=== PATIENT | male | born 1980 | race Caucasian/White ===

== ENCOUNTER 2016-08-16 20:52 | Emergency (ER) | payer OTHER ==
[~2016-08-16] VITALS: Ht 172.7 cm; Wt 125.8 kg
[~2016-08-16 20:52] MED LIST: ALBUAER19 INH; CARI350T28 PO; DICL1TAB5 PO; FLUO40CA8 PO; FLUT0.15 NAE; GABA400C PO; HYDR12.56 PO; LISI-725 PO; NORT75CA PO; OMEP40CA PO
[2016-08-16 21:03] VITALS: TEMP 36.9; Ht 172.7 cm; Wt 125.8 kg
[2016-08-16] MEDS ORDERED: OMEP40CA41 PO (21:49)
[2016-08-16] MEDS ORDERED: CEPH500C PO (21:53)
[2016-08-16] MEDS ORDERED: CEPHALEXIN 500MG HOME PACK 1 EA BTL PO ONE (22:00)
[2016-08-16] MEDS ORDERED: NORCO 5/325MG HOME PACK PO ONE (22:00)
[2016-08-16 22:05] VITALS: BP 134/97; PULSE 100; O2SAT 98
--- NOTE | 2016-08-17 04:32 | EMERGENCY ROOM VISIT NOTE ---
History First contact with patient: 21:36 Chief Complaint: BURN (MINOR) Stated Complaint: STEAM BURN ON RIGHT HAND History of Present Illness The patient is a 35 year old male who presents to the Emergency Room with complaints of burn to his right second, third, and fourth fingers. The patient was cooking dinner in the abdomen, and took the lid off a pot. He states that he suffered a steam burn to the back of his digits. He has had worsening pain over the past one to 2 hours and rates his current discomfort a 7/10. The patient believes he is up-to-date on his tetanus. He has not had blistering or significant redness. He has not taken anything [id number] for his pain. Review of Systems More than 10 systems were reviewed and otherwise negative with the exception of history of present illness. Past Medical/Surgical History Medical Problems: (1) Anxiety disorder (2) Back pain (3) Back pain (4) Depression (5) Depressive disorder (6) Esophageal Reflux (7) GERD (gastroesophageal reflux disease) (8) Hand crush injury (9) HTN (hypertension) (10) Left hand pain (11) Left shoulder pain (12) Shoulder pain Surgical Problems: (1) History of carpal tunnel release (2) History of herniorrhaphy (3) History of umbilical hernia repair (4) S/P carpal tunnel release Family History Diabetes mellitus MOTHER Gallbladder disease MOTHER Hypertension MOTHER Lung disease MOTHER Social History Smoking Status: Current Some Day Smoker Alcohol Use: occasionally Marital Status: Housing Status: lives with significant other Occupation Status: employed Current/Historical Medications Scheduled Carisoprodol (Soma), 350 MG PO QID Cephalexin Monohydrate (Keflex), 500 MG PO TID Fluoxetine (Prozac), 40 MG PO DAILY Gabapentin (Neurontin), 400 MG PO QID Hydrochlorothiazide (Hctz), 12.5 MG PO DAILY Lisinopril (Zestril), 20 MG PO DAILY Nortriptyline Hcl (Pamelor), 75 MG PO HS Omeprazole (Prilosec), 40 MG PO DAILY Scheduled PRN Albuterol Inhaler (Ventolin Inhaler), 2 PUFFS INH UD PRN for Respiratory-Cold Fluticasone Propionate (Nasal) (Flonase Allergy Relief), 1 SPRAY ANNY BID PRN for Allergy Symptoms Allergies Coded Allergies: No Known Allergies (Unverified , 12/07/15) Physical Exam Vital Signs Date Time Temp Pulse Resp B/P (MAP) Pulse Ox O2 Delivery O2 Flow Rate FiO2 08/16/16 22:05 100 18 134/97 98 Room Air 08/16/16 21:06 96 08/16/16 21:03 36.9 110 20 136/80 96 Pain Rating (0-10): 6.0 Physical Exam VITALS: Vitals are noted on the nurse's note and reviewed by myself. Vital signs stable. GENERAL: Well-developed, well-nourished, white male, who is in no acute distress and resting comfortably. Patient is cooperative with the examination. HEAD: Normocephalic atraumatic. HEART: Regular rate and rhythm without murmurs gallops or rubs. LUNGS: Clear to auscultation bilaterally without wheezes, rales or rhonchi. No retractions or accessory muscle use. SKIN: The skin was with superficial first-degree ball to the posterior aspect of the distal second, third, and fourth digits of the right hand. There is no blistering appreciated. No evidence of infection. The patient has full sensation and range of motion of the hand and digits. Medical Decision & Procedures Medications Administered Medications (Trade) Dose Ordered Sig/Diego Route Start Time Stop Time Status Last Admin Dose Admin Cephalexin Monohydrate (Keflex 500MG Home Pack) 1 homepack NOW ONCE PO 08/16/16 22:00 08/16/16 22:01 DC 08/16/16 22:05 1 HOMEPACK Acetaminophen/ Hydrocodone Bitart ([place] 5/325mg Home Pack) 1 homepack UD ONCE PO 08/16/16 22:00 08/16/16 22:01 DC 08/16/16 22:05 1 HOMEPACK ED Course Physical exam and history were performed. Nursing notes and EMR were reviewed. Patient appears to have suffered a superficial steam burn to his right hand posteriorly. The patient wound was dressed with a bacitracin dressing. He will be started on Keflex for prophylaxis. I will provide the patient home pack of Vicodin. He is to follow-up with his PCP or back in the ER in 2 days for recheck. He was otherwise invited back to the ER with any new, worsening, or concerning symptoms. The chart was completed utilizing [employer] Speech Voice Recognition Software. Grammatical errors, random word insertions, pronoun errors, and incomplete sentences are an occasional consequence of this system due to software limitations, ambient noise, and hardware issues. Any formal questions or concerns about the content, text, or information contained within the body of this dictation should be directly addressed to the provider for clarification. . Medical Decision Differential diagnosis: Etiologies such as cellulitis, abscess, MRSA infection, DVT, necrotizing fasciitis, dermatitis, drug eruption, as well as others were entertained.. Impression Primary Impression: Burn of fingers Departure Information Dispostion Home / Self-Care Condition FAIR Prescriptions Cephalexin Monohydrate (Keflex) 500 Mg Cap 500 MG PO TID for 5 Days, #15 CAP Prov: Nico Ruth PA-C 08/16/16 Forms HOME CARE DOCUMENTATION FORM, IMPORTANT VISIT INFORMATION Patient Instructions My [facility] Additional Instructions You were seen and evaluated today on an emergency basis only. This is not a substitute for, or an effort to provide, complete comprehensive medical care. It is not possible to recognize and treat all injuries or illnesses in a single emergency department visit. For this reason it is recommended that you followup with your primary care physician this week with any ongoing or persistent symptoms Cephalexin(Keflex) 500mg: Take one pill 3 times daily for 5 days for your skin infection. All antibiotics can cause diarrhea. If this occurs and you feel worse or it does not resolve in 1-2 days follow up with your doctor or return to the Emergency Department as this could be signs of serious underlying problems. Any medication can cause an allergic reaction, stop the pills immediately and return to the ER for rash, hives, breathing difficulties, or swelling. [place] (hydrocodone/acetaminophen) 5/325 mg every 6 hours as needed for worsening breakthrough pain. Do not drink or drive on [place]. This medication will likely make you tired. Do not take [place] and Tylenol at the same time as both contain acetaminophen. [place] may cause constipation. You may wish to take an [id number] stool softener like Colace if this occurs. Apply a bacitracin dressing 2-3 times daily to the affected fingers. You are welcome to return to the emergency department anytime with new, worsening, or concerning symptoms.
== END 2016-08-16 22:13 | disposition home or self-care (01) ==
LOC: C.EDB 20:53 → C.EDD 22:13
DX: T23.131A Burn of first degree of multiple right fingers (nail), not including thumb, initial encounter (principal); T31.0 Burns involving less than 10% of body surface; X13.1XXA Other contact with steam and other hot vapors, initial encounter; Y92.010 Kitchen of single-family (private) house as the place of occurrence of the external cause; Y93.G3 Activity, cooking and baking; F41.9 Anxiety disorder, unspecified; M54.9 Dorsalgia, unspecified; F32.9 Major depressive disorder, single episode, unspecified; K21.9 Gastro-esophageal reflux disease without esophagitis; I10 Essential (primary) hypertension; Z83.3 Family history of diabetes mellitus; Z83.79 Family history of other diseases of the digestive system; Z82.49 Family history of ischemic heart disease and other diseases of the circulatory system; Z83.6 Family history of other diseases of the respiratory system; F17.210 Nicotine dependence, cigarettes, uncomplicated; Z79.899 Other long term (current) drug therapy

== ENCOUNTER → 2016-10-03 | Outpatient (CLI) | payer OTHER ==
[~2016-10-03] MED LIST changes: +AMOX875T PO; -DICL1TAB5 PO; -OMEP40CA PO; +OMEP40CA41 PO; +VNTHFA/IN INH
--- NOTE | 2016-10-03 12:22 | DIAGNOSTIC IMAGING REPORT ---
RIGHT ANKLE 3 VIEWS CLINICAL HISTORY: Right ankle sprain. FINDINGS: 3 views of the right ankle are obtained. No prior studies are available for comparison at the time of dictation. The skeletal structures are well mineralized. No fracture is seen. The ankle mortise is intact. There is a joint effusion. Mild soft tissue swelling is present around the ankle. IMPRESSION: Soft tissue swelling and joint effusion. No right ankle fracture is seen. Electronically signed by: Riley Kimble M.D. 10/03/2016 12:20 PM Dictated Date/Time: 10/03/2016 12:19 PM
== END | disposition home or self-care (01) ==
LOC: C.RAD 12:01
PROVIDERS: ATTEND Nurse Practitioner Family
DX: S93.401A Sprain of unspecified ligament of right ankle, initial encounter (principal); X58.XXXA Exposure to other specified factors, initial encounter

== ENCOUNTER 2016-11-07 19:20 | Emergency (ER) | payer OTHER ==
[~2016-11-07] VITALS: Ht 172.7 cm; Wt 123.1 kg
[~2016-11-07 19:20] MED LIST changes: -AMOX875T PO; -VNTHFA/IN INH
[2016-11-07 19:23] VITALS: BP 118/79; PULSE 96; TEMP 36.5; O2SAT 95; Ht 172.7 cm; Wt 123.1 kg
[2016-11-07] MEDS ORDERED: ACETAMINOPHEN 500 MG TAB PO STA (19:35)
[2016-11-07] MEDS ORDERED: AMOX875T PO (19:40)
[2016-11-07] MEDS ORDERED: VNTHFA/IN INH (19:44)
[2016-11-07] MEDS ORDERED: AMOXICIL/CLAVU 875MG HOME PACK PO ONE (19:45)
[2016-11-07] MEDS ORDERED: AMOXICILLIN/CLAVULANATE TAB 875 MG TAB PO ONE (19:45)
--- NOTE | 2016-11-07 19:56 | EMERGENCY ROOM VISIT NOTE ---
History Report prepared by Jamil: Cheri Hahn Under the Supervision of: Dr. Omar Veloz D.O. First contact with patient: 19:29 Chief Complaint: SINUS CONGESTION/PRESSURE Stated Complaint: SINUS PRESSURE, SORE THROAT, NECK/BACK PAIN, HEADA History of Present Illness The patient is a 36 year old male who presents to the Emergency Room with complaints of worsening sinus congestion starting a week ago. The patient complains of waking up this morning and it being the worst it has been. The patient complains of a headache, sore throat, increased neck pain, increased back pain, ringing in his ears, drainage, and nausea. He notes that he has had sinus infections before and once had it spread to his eye. He states he has been using Flonase with little relief. The patient denies fevers, chills, and being seen for this before. He notes that his grand kids have been sick recently. Source of History: patient Onset: a week ago Position: other (sinus) Quality: other (congestion) Timing: worsening Modifying Factors (Relieving): other (Flonase) Associated Symptoms: + headache, + sorethroat, + neck pain, + nausea, + back pain, No fevers, No chills Note: The patient complains of ringing in his ears and drainage. Review of Systems See HPI for pertinent positives & negatives. A total of 10 systems reviewed and were otherwise negative. Past Medical & Surgical Medical Problems: (1) Anxiety disorder (2) Back pain (3) Back pain (4) Depression (5) Depressive disorder (6) Esophageal Reflux (7) GERD (gastroesophageal reflux disease) (8) Hand crush injury (9) Herniated disc (10) HTN (hypertension) (11) Left hand pain (12) Left shoulder pain (13) Shoulder pain Surgical Problems: (1) H/O umbilical hernia repair (2) History of carpal tunnel release (3) History of carpal tunnel surgery of left wrist (4) History of herniorrhaphy (5) History of umbilical hernia repair (6) S/P carpal tunnel release Family History Diabetes mellitus MOTHER Gallbladder disease MOTHER Hypertension MOTHER Lung disease MOTHER Social History Smoking Status: Current Some Day Smoker Alcohol Use: occasionally Marital Status: Housing Status: lives with significant other Occupation Status: employed Current/Historical Medications Scheduled Amoxicillin & Pot Clavulanate (Augmentin 875-125 mg), 1 TAB PO BID Carisoprodol (Soma), 350 MG PO QID Fluoxetine (Prozac), 40 MG PO DAILY Gabapentin (Neurontin), 400 MG PO QID Hydrochlorothiazide (Hctz), 12.5 MG PO DAILY Lisinopril (Zestril), 20 MG PO DAILY Nortriptyline Hcl (Pamelor), 75 MG PO HS Omeprazole (Prilosec), 40 MG PO DAILY Scheduled PRN Albuterol Hfa (Ventolin Hfa), 2 PUFFS INH UD PRN for SOB/Wheezing Fluticasone Propionate (Nasal) (Flonase Allergy Relief), 1 SPRAY ANNY BID PRN for Allergy Symptoms Allergies Coded Allergies: No Known Allergies (Unverified , 12/07/15) Physical Exam Vital Signs Date Time Temp Pulse Resp B/P (MAP) Pulse Ox O2 Delivery O2 Flow Rate FiO2 11/07/16 19:23 36.5 96 20 118/79 95 Room Air Physical Exam GENERAL: Patient is awake, alert, and in no acute distress. Patient is resting comfortably and showing no signs of anxiety EYES: The conjunctivae are clear. The pupils are round and reactive. EARS, NOSE, MOUTH AND THROAT: The nose is without any evidence of any deformity. Mucous membranes are moist tongue is midline. TMs are clear bilaterally. Nares were patent. Nasal mucosa erythematous and edematous. Posterior oropharynx clear, but some cobble stoning noted. NECK: The neck is nontender and supple. RESPIRATORY: Normal respiratory effort is noted there is no evidence of wheezing rhonchi or rales CARDIOVASCULAR: Regular rate and rhythm noted there no murmurs rubs or gallops normal S1 normal S2 GASTROINTESTINAL: The abdomen is soft. Bowel sounds are present in all quadrants. Abdomen is nontender MUSCULOSKELETAL/EXTREMITIES: There is no evidence of gross deformity full range of motion is noted in the hips and shoulders SKIN: There is no obvious evidence of any rash. There are no petechiae, pallor or cyanosis noted. NEUROLOGIC: Patient is awake alert and oriented x3 strength is symmetric patellar reflexes are 2+ bilaterally Medical Decision & Procedures Medications Administered Medications (Trade) Dose Ordered Sig/Diego Route Start Time Stop Time Status Last Admin Dose Admin Amoxicillin/ Clavulanate Potassium (Augmentin 875MG Home Pack) 1 homepack UD ONCE PO 11/07/16 19:45 11/07/16 19:46 DC 11/07/16 19:49 1 HOMEPACK Amoxicillin/ Clavulanate Potassium (Augmentin Tab) 875 mg NOW ONCE PO 11/07/16 19:45 11/07/16 19:46 DC 11/07/16 19:49 875 MG Acetaminophen (Tylenol Tab) 1,000 mg ONE STAT PO 11/07/16 19:35 11/07/16 19:37 DC 11/07/16 19:49 1,000 MG ED Course 1931: The patient was evaluated in room A3. A complete history and physical examination were performed. 1934: Ordered Tylenol Tab 1000 mg PO. 1944: Ordered Augmentin Tab 875 mg PO, Augmentin 875MG Home Pack 1 homepack PO. 1953: Upon reevaluation, the patient is resting comfortably. I discussed the results and treatment plan with him. He verbalized agreement of the treatment plan. The patient was discharged home. Medical Decision Etiologies such as migraine headache, meningitis, sinusitis, CO exposure, ICH, SAH, infection, tumor, headache, sinus thrombosis, arterial dissection, as well as others were entertained. Nursing notes reviewed. The patient is a 36-year-old female who presented to the emergency department for evaluation of frontal pain. The patient appears to have sinusitis by physical exam. He does not have a significant fever. I discussed follow-up with the patient and encouraged him to continue all medications as prescribed. He was also encouraged to follow-up with his family doctor for reevaluation and for possible ENT evaluation if he was not feeling much better. He was also encouraged to try using Flonase but be cautious with needing other over-the- counter medications as it could affect his blood pressure. He was also encouraged return to the emergency department immediately if symptoms change worsen or the need arises Impression Primary Impression: Sinusitis Scribe Attestation The scribe's documentation has been prepared under my direction and personally reviewed by me in its entirety. I confirm that the note above accurately reflects all work, treatment, procedures, and medical decision making performed by me. Departure Information Dispostion Home / Self-Care Prescriptions Amoxicillin & Pot Clavulanate (Augmentin 875-125 mg) 1 Tab Tab 1 TAB PO BID, #14 TAB Prov: Omar Veloz, DO 11/07/16 Referrals Omar Doty M.D. (PCP) Forms HOME CARE DOCUMENTATION FORM, IMPORTANT VISIT INFORMATION, WORK / SCHOOL INSTRUCTIONS Patient Instructions My [facility] Additional Instructions Call your family doctor in the morning to schedule a follow-up appointment. Rest and avoid any strenuous activity. Drink plenty clear liquids. Continue using Motrin and Tylenol as directed for pain. I would recommend starting a medication such as Flonase for decongestion. Problem Qualifiers Primary Impression: Sinusitis Sinusitis location: unspecified location Chronicity: acute Recurrence: not specified as recurrent Qualified Codes: J01.90 - Acute sinusitis, unspecified
== END 2016-11-07 19:49 | disposition home or self-care (01) ==
LOC: C.EDB 19:21 → C.EDA 19:49
DX: J01.90 Acute sinusitis, unspecified (principal); F41.9 Anxiety disorder, unspecified; F32.9 Major depressive disorder, single episode, unspecified; K21.9 Gastro-esophageal reflux disease without esophagitis; I10 Essential (primary) hypertension; Z83.3 Family history of diabetes mellitus; Z83.79 Family history of other diseases of the digestive system; Z83.6 Family history of other diseases of the respiratory system; F17.210 Nicotine dependence, cigarettes, uncomplicated; Z79.899 Other long term (current) drug therapy

== ENCOUNTER 2016-12-02 10:44 | Emergency (ER) | payer OTHER ==
[~2016-12-02] VITALS: Ht 172.7 cm; Wt 123.3 kg
[2016-12-02 10:47] VITALS: TEMP 36.7; Ht 172.7 cm; Wt 123.3 kg
[2016-12-02] MEDS ORDERED: KETOROLAC TROMETHAMINE 30 MG/ML VIAL IV STA (11:02)
[2016-12-02] MEDS ORDERED: SODIUM CHLORIDE 0.9% 1000ML 1,000 ML IV STA (11:02)
[2016-12-02] MEDS ORDERED: ONDANSETRON INJ 2 MG/ML 2 ML VIAL IV STA ×2 (11:02→13:49)
[2016-12-02] MEDS ORDERED: MoRPHine SULFATE 10 MG/ML CARP/VIAL IV STA (11:02)
--- NOTE | 2016-12-02 11:21 | DIAGNOSTIC IMAGING REPORT ---
CHEST ONE VIEW PORTABLE CLINICAL HISTORY: Pain, radiating to the right upper quadrant COMPARISON STUDY: No previous studies for comparison. FINDINGS: The cardiac and mediastinal contours are normal. There is no evidence of focal pulmonary consolidation. There is no evidence of failure. No pleural effusions are visualized.[No free intraperitoneal air is visualized IMPRESSION: No active disease in the chest. Electronically signed by: Jaylen Morales M.D. 12/02/2016 11:19 AM Dictated Date/Time: 12/02/2016 11:19 AM
[2016-12-02 11:23] LABS: BASO % 0.7 %; BASO ABS # 0.03 K/uL (0-0.2); COMPLETE YES; IG% 0.2 %; LYMPH % 38.5 %; MEAN CELL VOLUME 86.6 fL (80-100); MEAN CORPUSCULAR HEMOGLOBIN 31.4 pg (25-34); MEAN CORPUSCULAR HGB CONC 36.3 g/dl (32-36); MEAN PLATELET VOLUME 8.7 fL (7.4-10.4); NEUT % 44.6 %; PLATELET COUNT 234 K/uL (130-400); RED BLOOD COUNT 4.62 M/uL (4.7-6.1); WHITE BLOOD COUNT 4.42 K/uL (4.8-10.8)
[2016-12-02 12:24] LABS: ALT/SGPT 55 U/L (12-78)
[2016-12-02 12:28] LABS: ALKALINE PHOSPHATASE 70 U/L (45-117); AST/SGOT 39 U/L (15-37); BLOOD UREA NITROGEN 14 mg/dl (7-18); BUN/CREATININE RATIO 15.4 (10-20); CALCIUM 8.4 mg/dl (8.5-10.1); CARBON DIOXIDE 26 mmol/L (21-32); CHLORIDE 102 mmol/L (98-107); CREATININE 0.88 mg/dl (0.60-1.40); POTASSIUM 3.2 mmol/L (3.5-5.1); SODIUM 136 mmol/L (136-145)
[2016-12-02 12:58] LABS: GLUCOSE 99 mg/dl (70-99)
--- NOTE | 2016-12-02 13:18 | DIAGNOSTIC IMAGING REPORT ---
GALLBLADDER-ABD LIMITED HISTORY: 36 years-old Male ruq abd pain acute right upper quadrant abdominal pain COMPARISON: Right upper quadrant ultrasound 07/07/2011 TECHNIQUE: Multiple real-time sonographic images of the abdominal right upper quadrant were obtained assessing grayscale appearance and color flow FINDINGS: Pancreas is partially secured by bowel gas. There is apparent mild prominence with decreased echogenicity of the pancreatic head. Liver measures up to 19.1 cm in length and is mildly echogenic suggesting fatty infiltration. Common bile duct measures 0.5 cm, within normal limits. Gallbladder is mildly contracted without gallbladder wall thickening, pericholecystic fluid collections or shadowing cholelithiasis. 0.5 cm calculus of the interpolar right kidney. Right kidney measures up to 12.0 cm in length. No definite right-sided hydronephrosis. IMPRESSION: 1. Mild prominence with decreased echogenicity of the pancreatic head. Correlate with lipase level to exclude developing pancreatitis. 2. 5 mm calculus of the interpolar right kidney without definite hydronephrosis. 3. No cholelithiasis or sonographic evidence of acute cholecystitis. The above report was generated using voice recognition software. It may contain grammatical, syntax or spelling errors. Electronically signed by: Yvan Ag M.D. 12/02/2016 1:17 PM Dictated Date/Time: 12/02/2016 1:14 PM
[2016-12-02] MEDS ORDERED: MoRPHine SULFATE 4 MG/ML 1 ML CARP\\VIAL IV STA (13:49)
[2016-12-02] MEDS ORDERED: GI COCKTAIL PO STA (14:23)
[2016-12-02] MEDS ORDERED: LIDOCAINE HCL 2% VISC SOLN 20 ML UDC ONE (14:31)
[2016-12-02] MEDS ORDERED: ALUMINUM/MAGNESIUM SUSP 30 ML UDC ONE (14:32)
[2016-12-02 14:34] LABS: URINE APPEARANCE CLEAR (CLEAR); URINE BILIRUBIN NEG (NEG); URINE COLOR YELLOW; URINE NITRITE NEG (NEG); URINE PH 5.5 (4.5-7.5); URINE SPECIFIC GRAVITY 1.014 (1.000-1.030); UROBILINOGEN NEG (NEG); ZZUR CULT IF INDIC CLEAN CATCH NO
[2016-12-02 14:36] LABS: MANUAL MICROSCOPIC REQUIRED? NO; REVIEW REQ? NO
[2016-12-02] MEDS ORDERED: SUCR1TAB29 PO (15:17)
[2016-12-02 15:44] VITALS: BP 132/74; PULSE 74; O2SAT 98
--- NOTE | 2016-12-02 16:46 | EMERGENCY ROOM VISIT NOTE ---
History Report prepared by Jamil: Wale Awan Under the Supervision of: Dr. Steve Decker D.O. First contact with patient: 10:50 Chief Complaint: ABDOMINAL PAIN Stated Complaint: RUQ PAIN History of Present Illness The patient is a 36 year old male who presents to the Emergency Room with complaints of sharp intermittent RUQ abdominal pain that began a couple of hours ago. He rates his pain a 10/10 in severity. At this time, his pain began after he ate breakfast. He notes the coffee does make this pain worse. This has never happened to him before. He denies any arm pain, chest pain, shortness of breath, nausea, vomiting, or abnormal urinary symptoms. He is not having pain with breathing. He states that he has some diarrhea. He has a history of hypertension. Patient denies diabetes, hyperlipidemia, CAD, history of sudden at a young age, and smoking. Patient denies swelling of calves, recent trips, history of immobilization or recent surgery, prior history of DVT, hemoptysis, history of malignancy, history of cancer, or history of smoking Source of History: patient Onset: this morning Position: abdomen (RUQ) Symptom Intensity: 10/10 Quality: sharp Timing: intermittent Associated Symptoms: + diarrhea, No SOB, No nausea, No vomiting Review of Systems See HPI for pertinent positives & negatives. A total of 10 systems reviewed and were otherwise negative. Past Medical & Surgical Medical Problems: (1) Anxiety disorder (2) Back pain (3) Back pain (4) Depression (5) Depressive disorder (6) Esophageal Reflux (7) GERD (gastroesophageal reflux disease) (8) Hand crush injury (9) Herniated disc (10) HTN (hypertension) (11) Left hand pain (12) Left shoulder pain (13) Shoulder pain Surgical Problems: (1) H/O umbilical hernia repair (2) History of carpal tunnel release (3) History of carpal tunnel surgery of left wrist (4) History of herniorrhaphy (5) History of umbilical hernia repair (6) S/P carpal tunnel release Family History Diabetes mellitus MOTHER Gallbladder disease MOTHER Hypertension MOTHER Lung disease MOTHER Social History Smoking Status: Current Some Day Smoker Alcohol Use: occasionally Marital Status: Housing Status: lives with significant other Occupation Status: employed Current/Historical Medications Scheduled Carisoprodol (Soma), 350 MG PO QID Fluoxetine (Prozac), 40 MG PO DAILY Gabapentin (Neurontin), 400 MG PO QID Hydrochlorothiazide (Hctz), 12.5 MG PO DAILY Lisinopril (Zestril), 20 MG PO DAILY Nortriptyline Hcl (Pamelor), 75 MG PO HS Omeprazole (Prilosec), 40 MG PO DAILY Sucralfate (Carafate), 1 GM PO TID Scheduled PRN Albuterol Hfa (Ventolin Hfa), 2 PUFFS INH UD PRN for SOB/Wheezing Fluticasone Propionate (Nasal) (Flonase Allergy Relief), 1 SPRAY ANNY BID PRN for Allergy Symptoms Allergies Coded Allergies: No Known Allergies (Unverified , 12/02/16) Physical Exam Vital Signs Date Time Temp Pulse Resp B/P (MAP) Pulse Ox O2 Delivery O2 Flow Rate FiO2 12/02/16 15:44 74 16 132/74 98 12/02/16 14:04 73 20 132/76 96 Room Air 12/02/16 10:47 36.7 83 16 144/81 98 Room Air Physical Exam GENERAL: Sitting up in bed holding RUQ, disheveled, alert, well appearing, well nourished, minimal distress, non-toxic EYE EXAM: normal conjunctiva OROPHARYNX: no exudate, no erythema, lips, buccal mucosa, and tongue normal and mucous membranes are moist NECK: supple, no nuchal rigidity, no adenopathy, non-tender LUNGS: Clear to auscultation. Normal chest wall mechanics HEART: no murmurs, S1 normal and S2 normal ABDOMEN: abdomen soft, tenderness to the RUQ, normo-active bowel sounds, no masses, no rebound or guarding. BACK: Back is symmetrical on inspection and there is no deformity, no midline tenderness, no CVA tenderness. SKIN: no rashes and no bruising UPPER EXTREMITIES: upper extremities are grossly normal. LOWER EXTREMITIES: No pitting edema. NEURO EXAM: Normal sensorium, cranial nerves II-XII grossly intact, normal speech, no weakness of arms, no gross weakness of legs. Medical Decision & Procedures ER Provider Diagnostic Interpretation: Radiology results as stated below per my review and the radiologist's interpretation: GALLBLADDER-ABD LIMITED HISTORY: 36 years-old Male ruq abd pain acute right upper quadrant abdominal pain COMPARISON: Right upper quadrant ultrasound 07/07/2011 TECHNIQUE: Multiple real-time sonographic images of the abdominal right upper quadrant were obtained assessing grayscale appearance and color flow FINDINGS: Pancreas is partially secured by bowel gas. There is apparent mild prominence with decreased echogenicity of the pancreatic head. Liver measures up to 19.1 cm in length and is mildly echogenic suggesting fatty infiltration. Common bile duct measures 0.5 cm, within normal limits. Gallbladder is mildly contracted without gallbladder wall thickening, pericholecystic fluid collections or shadowing cholelithiasis. 0.5 cm calculus of the interpolar right kidney. Right kidney measures up to 12.0 cm in length. No definite right-sided hydronephrosis. IMPRESSION: 1. Mild prominence with decreased echogenicity of the pancreatic head. Correlate with lipase level to exclude developing pancreatitis. 2. 5 mm calculus of the interpolar right kidney without definite hydronephrosis. 3. No cholelithiasis or sonographic evidence of acute cholecystitis. The above report was generated using voice recognition software. It may contain grammatical, syntax or spelling errors. Electronically signed by: Yvan Ag M.D. 12/02/2016 1:17 PM Dictated Date/Time: 12/02/2016 1:14 PM CHEST ONE VIEW PORTABLE CLINICAL HISTORY: Pain, radiating to the right upper quadrant COMPARISON STUDY: No previous studies for comparison. FINDINGS: The cardiac and mediastinal contours are normal. There is no evidence of focal pulmonary consolidation. There is no evidence of failure. No pleural effusions are visualized.[No free intraperitoneal air is visualized IMPRESSION: No active disease in the chest. Electronically signed by: Jaylen Morales M.D. 12/02/2016 11:19 AM Dictated Date/Time: 12/02/2016 11:19 AM Laboratory Results 12/02/16 11:09 Red Blood Count 4.62, Mean Corpuscular Volume 86.6, Mean Corpuscular Hemoglobin 31.4, Mean Corpuscular Hemoglobin Concent 36.3, Mean Platelet Volume 8.7, Neutrophils (%) (Auto) 44.6, Lymphocytes (%) (Auto) 38.5, Monocytes (%) (Auto) 9.0, Eosinophils (%) (Auto) 7.0, Basophils (%) (Auto) 0.7, Neutrophils # (Auto) 1.97, Lymphocytes # (Auto) 1.70, Monocytes # (Auto) 0.40, Eosinophils # (Auto) 0.31, Basophils # (Auto) 0.03 12/02/16 11:09 Test 12/02/16 11:09 12/02/16 14:10 12/02/16 14:25 White Blood Count 4.42 K/uL (4.8-10.8) Red Blood Count 4.62 M/uL (4.7-6.1) Hemoglobin 14.5 g/dL (14.0-18.0) Hematocrit 40.0 % (42-52) Mean Corpuscular Volume 86.6 fL (80-100) Mean Corpuscular Hemoglobin 31.4 pg (25-34) Mean Corpuscular Hemoglobin Concent 36.3 g/dl (32-36) Platelet Count 234 K/uL (130-400) Mean Platelet Volume 8.7 fL (7.4-10.4) Neutrophils (%) (Auto) 44.6 % Lymphocytes (%) (Auto) 38.5 % Monocytes (%) (Auto) 9.0 % Eosinophils (%) (Auto) 7.0 % Basophils (%) (Auto) 0.7 % Neutrophils # (Auto) 1.97 K/uL (1.4-6.5) Lymphocytes # (Auto) 1.70 K/uL (1.2-3.4) Monocytes # (Auto) 0.40 K/uL (0.11-0.59) Eosinophils # (Auto) 0.31 K/uL (0-0.5) Basophils # (Auto) 0.03 K/uL (0-0.2) RDW Standard Deviation 42.0 fL (36.4-46.3) RDW Coefficient of Variation 13.3 % (11.5-14.5) Immature Granulocyte % (Auto) 0.2 % Immature Granulocyte # (Auto) 0.01 K/uL (0.00-0.02) D-Dimer < 190 ug/L FEU (0-500) Anion Gap 8.0 mmol/L (3-11) Est Creatinine Clear Calc Drug Dose 146.9 ml/min Estimated GFR () 127.2 Estimated GFR (Non- 109.7 BUN/Creatinine Ratio 15.4 (10-20) Calcium Level 8.4 mg/dl (8.5-10.1) Total Bilirubin 0.8 mg/dl (0.2-1) Direct Bilirubin 0.1 mg/dl (0-0.2) Aspartate Amino Transf (AST/SGOT) 39 U/L (15-37) Alanine Aminotransferase (ALT/SGPT) 55 U/L (12-78) Alkaline Phosphatase 70 U/L (45-117) Total Protein 7.3 gm/dl (6.4-8.2) Albumin 3.9 gm/dl (3.4-5.0) Lipase 220 U/L (73-393) Urine Color YELLOW Urine Appearance CLEAR (CLEAR) Urine pH 5.5 (4.5-7.5) Urine Specific [place] 1.014 (1.000-1.030) Urine Protein NEG (NEG) Urine Glucose (UA) NEG (NEG) Urine Ketones NEG (NEG) Urine Occult Blood NEG (NEG) Urine Nitrite NEG (NEG) Urine Bilirubin NEG (NEG) Urine Urobilinogen NEG (NEG) Urine Leukocyte Esterase NEG (NEG) Urine WBC (Auto) 1-5 /hpf (0-5) Urine RBC (Auto) 0-4 /hpf (0-4) Urine Hyaline Casts (Auto) 0 /lpf (0-5) Urine Epithelial Cells (Auto) 5-10 /lpf (0-5) Urine Bacteria (Auto) NEG (NEG) Troponin I < 0.015 ng/ml (0-0.045) Laboratory results per my review. Medications Administered Medications (Trade) Dose Ordered Sig/Diego Route Start Time Stop Time Status Last Admin Dose Admin Sodium Chloride 1,000 ml @ 999 mls/hr Q1H1M STAT IV 12/02/16 11:02 12/02/16 12:02 DC 12/02/16 11:22 999 MLS/HR Ondansetron HCl (Zofran Inj) 4 mg NOW STAT IV 12/02/16 11:02 12/02/16 11:04 DC 12/02/16 11:22 4 MG Ketorolac Tromethamine (Toradol Inj) 15 mg NOW STAT IV 12/02/16 11:02 12/02/16 11:04 DC 12/02/16 11:23 15 MG Morphine Sulfate (MoRPHine SULFATE INJ) 6 mg NOW STAT IV 12/02/16 11:02 12/02/16 11:04 DC 12/02/16 11:22 6 MG Morphine Sulfate (MoRPHine SULFATE INJ) 4 mg NOW STAT IV 12/02/16 13:49 12/02/16 13:50 DC 12/02/16 14:03 4 MG Ondansetron HCl (Zofran Inj) 4 mg NOW STAT IV 12/02/16 13:49 12/02/16 13:50 DC 12/02/16 14:02 4 MG Lidocaine HCl (Viscous Lidocaine 2% Soln) 20 ml STK-MED ONCE .ROUTE 12/02/16 14:31 12/02/16 14:32 DC 12/02/16 14:31 20 ML Al Hydroxide/Mg Hydroxide (Maalox Susp) 30 ml STK-MED ONCE .ROUTE 12/02/16 14:32 12/02/16 14:33 DC 12/02/16 14:32 30 ML ECG Indication: abdominal pain Rate (beats per minute): 80 Rhythm: sinus rhythm Findings: Q waves (Septal), no ectopy Comparison ECG Date: no prior available ED Course ED COURSE: Vital signs were reviewed and showed hypertension. The patients medical record was reviewed The above diagnostic studies were performed and reviewed. ED treatments and interventions as stated above. 1050: The patient was evaluated in room C3. A complete history and physical examination was performed. 1102: Ordered Morphine Sulfate 6 mg IV, Toradol Inj 15 mg IV, Zofran Inj 4 mg IV , Sodium Chloride 1000 ml @ 999 mls/hr IV 1349: Ordered Zofran Inj 4 mg IV, Morphine Sulfate 4 mg IV 1423: Ordered GI Cocktail 24 ml PO. I updated the patient at this time. I will reevaluate him after the GI Cocktail. 1515: Upon reevaluation, the patient is resting and is feeling better. He notes that his pain was worse after he drank coffee. I discussed my findings with the patient and he understands and agrees with the treatment plan. Based on the patients age, coexisting illnesses, exam and lab findings the decision to treat as an outpatient was made. The patient remained stable while under my care. The patient appeared well at the time of discharge. Medical Decision Differential diagnoses includes but is not limited to gastritis, peptic ulcer disease, GERD, gallbladder disease, pancreatitis, small bowel obstruction, acute coronary syndrome, pericarditis, ischemic bowel, irritable bowel disease, irritable bowel syndrome, appendicitis, diverticulitis, malignancy, hernia, urinary tract infection, torsion, perforation, trauma, infectious. Patient is a 36-year-old male who presents to ER for right upper quadrant abdominal pain associated with diarrhea which started 2 hours ago. He describes pain as a sharp stabbing pain. He has a history of hypertension. He has no chest pain or shortness of breath. On exam he has minimal tenderness. No rebound or guarding. No signs peritonitis. Ultrasound shows no signs of cholecystitis. Chest x-ray was unremarkable. EKG was nondiagnostic with 2 negative troponins. D-dimer was negative. Again he has no chest pain or shortness of breath. Pt was given a GI cocktail and had significant improvement of his symptoms associate with fluids, Zofran and morphine. Updated . Patient was discharged follow-up with PCP. Discussed with Pt concerning signs and symptoms to watch out for. Pt was instructed to follow up with their PCP and discussed with the patient their option to return to the ED at anytime for persistent or worsening symptoms. The appropriate anticipatory guidance and out-patient management, including indications for return to the emergency department, were explained at length to the patient and understood. Medication Reconcilliation Current Medication List: was personally reviewed by me Blood Pressure Screening Patient's blood pressure: Elevated blood pressure Blood pressure disposition: Elevated BP felt to be situational Impression Primary Impression: Gastritis Additional Impression: Abdominal pain Scribe Attestation The scribe's documentation has been prepared under my direction and personally reviewed by me in its entirety. I confirm that the note above accurately reflects all work, treatment, procedures, and medical decision making performed by me. Departure Information Dispostion Home / Self-Care Prescriptions Sucralfate (CARAFATE) 1 Gm Tab 1 GM PO TID, #40 TAB Prov: Steve Decker, 12/02/16 Referrals Omar Doty M.D. (PCP) Forms Call Back Authorization, HOME CARE DOCUMENTATION FORM, IMPORTANT VISIT INFORMATION Patient Instructions Monica Burgos [facility] Additional Instructions Please follow up with your primary care doctor with in the next 24 hours. Any worsening of your symptoms, please return to the ED immediately. This includes any fevers greater than 100.4, worsening pain, chest pain, shortness breath, persistent nausea, vomiting, unable to eat or drink, or any other concerning signs or symptoms from your standpoint. Please take Carafate as needed and stay away from caffeine/fatty foods. Problem Qualifiers Primary Impression: Gastritis Gastritis type: unspecified gastritis Chronicity: acute Gastritis bleeding : presence of bleeding unspecified Qualified Codes: K29.00 - Acute gastritis without bleeding Additional Impression: Abdominal pain Abdominal location: right upper quadrant Qualified Codes: R10.11 - Right upper quadrant pain
== END 2016-12-02 15:45 | disposition home or self-care (01) ==
LOC: C.EDB 10:46 → C.EDC 15:45
DX: K29.70 Gastritis, unspecified, without bleeding (principal); I10 Essential (primary) hypertension; F41.9 Anxiety disorder, unspecified; F32.9 Major depressive disorder, single episode, unspecified; K21.9 Gastro-esophageal reflux disease without esophagitis; Z83.3 Family history of diabetes mellitus; Z82.49 Family history of ischemic heart disease and other diseases of the circulatory system; F17.210 Nicotine dependence, cigarettes, uncomplicated; Z79.899 Other long term (current) drug therapy

== ENCOUNTER 2016-12-03 20:49 | Emergency (ER) | payer OTHER ==
[~2016-12-03] VITALS: Ht 172.7 cm; Wt 121.7 kg
[~2016-12-03 20:49] MED LIST changes: -ALBUAER19 INH; -CARI350T28 PO; -FLUO40CA8 PO; -FLUT0.15 NAE; -GABA400C PO; -HYDR12.56 PO; -LISI-725 PO; -NORT75CA PO; -OMEP40CA41 PO; +SUCR1TAB29 PO
[2016-12-03 20:55] VITALS: TEMP 37.2; Ht 172.7 cm; Wt 121.7 kg
[2016-12-03] MEDS ORDERED: MoRPHine SULFATE 4 MG/ML 1 ML CARP\\VIAL IV STA (22:16)
[2016-12-03] MEDS ORDERED: SODIUM CHLORIDE 0.9% 1000ML 1,000 ML IV STA (22:16)
--- NOTE | 2016-12-03 22:29 | EMERGENCY ROOM VISIT NOTE ---
History First contact with patient: 21:59 Chief Complaint: ABDOMINAL PAIN Stated Complaint: LIGHT HEADED Nursing Triage Summary: pt states he was here yesterday and today is having more pain. History of Present Illness The patient is a 36 year old male who presents to the Emergency Room with complaints of epigastric and right upper quadrant abdominal pain that started yesterday morning. The patient was seen in this emergency department for the pain, had labs, chest x-ray and right upper quadrant ultrasound that were unremarkable, and he was diagnosed with gastritis. Patient states that today the pain has become worse, it is now radiating up into his right side. He has associated nausea, but no vomiting, denies fevers or chills, diarrhea or constipation, blood in the stool, urinary symptoms. He reports a history of GERD and takes omeprazole for this, but states he has never had pain like this before. Review of Systems A complete 10 point review of systems was reviewed with the patient with pertinent positives and negatives as per history of present illness. All else were negative. Past Medical/Surgical History Medical Problems: (1) Anxiety disorder (2) Back pain (3) Back pain (4) Depression (5) Depressive disorder (6) Esophageal Reflux (7) GERD (gastroesophageal reflux disease) (8) Hand crush injury (9) Herniated disc (10) HTN (hypertension) (11) Left hand pain (12) Left shoulder pain (13) Shoulder pain Surgical Problems: (1) H/O umbilical hernia repair (2) History of carpal tunnel release (3) History of carpal tunnel surgery of left wrist (4) History of herniorrhaphy (5) History of umbilical hernia repair (6) S/P carpal tunnel release Family History Diabetes mellitus MOTHER Gallbladder disease MOTHER Hypertension MOTHER Lung disease MOTHER Social History Smoking Status: Current Some Day Smoker Alcohol Use: occasionally Marital Status: Housing Status: lives with significant other Occupation Status: employed Current/Historical Medications Scheduled Carisoprodol (Soma), 350 MG PO QID Fluoxetine (Prozac), 40 MG PO DAILY Gabapentin (Neurontin), 400 MG PO QID Hydrochlorothiazide (Hctz), 12.5 MG PO DAILY Lisinopril (Zestril), 20 MG PO DAILY Nortriptyline Hcl (Pamelor), 75 MG PO HS Omeprazole (Prilosec), 40 MG PO DAILY Sucralfate (Carafate), 1 GM PO TID Scheduled PRN Albuterol Hfa (Ventolin Hfa), 2 PUFFS INH UD PRN for SOB/Wheezing Fluticasone Propionate (Nasal) (Flonase Allergy Relief), 1 SPRAY ANNY BID PRN for Allergy Symptoms Hydrocodone/Acetaminophen 5MG/325MG ([place] 5MG/325MG), 1-2 TABLET PO Q6H PRN for Pain Allergies Coded Allergies: No Known Allergies (Unverified , 12/03/16) Physical Exam Vital Signs Date Time Temp Pulse Resp B/P (MAP) Pulse Ox O2 Delivery O2 Flow Rate FiO2 12/04/16 02:05 64 18 133/78 100 12/04/16 01:08 68 18 129/78 99 Room Air 12/03/16 23:00 68 18 138/78 97 Room Air 12/03/16 22:42 57 12/03/16 20:55 37.2 76 18 115/73 98 Room Air Physical Exam CONSTITUTIONAL: No acute distress. Well appearing and well nourished. Alert and oriented X 4 with normal affect. HEENT: Normocephalic, atraumatic. Pupils equal, round and reactive to light, EOMI. TMs normal. Pharynx normal. NECK: Supple, full active range of motion without discomfort. RESPIRATORY: Clear to auscultation bilaterally with no wheezing, crackles, rhonchi or stridor. Equal expansion bilaterally. CARDIOVASCULAR: Regular rate and rhythm with no murmurs, rubs or gallops. Normal peripheral perfusion. No edema. CHEST WALL: Tenderness to palpation of the right lateral chest wall, no crepitus , no ecchymosis or abrasions, no palpable rib fractures. GASTROINTESTINAL: Moderate tenderness in the right upper quadrant to palpation, mild tenderness in the epigastric region. No rebound or guarding. Abdomen is otherwise nontender. No CVA tenderness. Soft, nondistended. Bowel sounds present in all quadrants. MUSCULOSKELETAL: Full range of motion of all joints without discomfort. INTEGUMENTARY: No rash or other significant dermatologic conditions noted. NEUROLOGIC: Cranial nerves II-XII grossly intact. No focal neurologic deficits noted. Medical Decision & Procedures ER Provider Diagnostic Interpretation: CT SCAN OF THE ABDOMEN AND PELVIS WITH IV CONTRAST CLINICAL HISTORY: Epigastric abdominal pain. COMPARISON STUDY: Abdominal CT dated 07/07/2011. Abdominal ultrasound dated 12/02/2016. TECHNIQUE: Following the IV administration of 94 cc of Optiray 320, CT scan of the abdomen and pelvis is performed from the lung bases to the proximal femora. Images are reviewed in the axial, sagittal, and coronal planes. IV contrast was administered without complication. A dose lowering technique was utilized adhering to the principles of ALARA. CT DOSE: 1520.41 mGy.cm FINDINGS: Lung bases: The heart is normal in size and without pericardial effusion. There are scattered coronary artery calcifications. The lung bases are clear. There is a tiny hiatal hernia. Liver: The contrast-enhanced liver is normal in size, contour, and attenuation. There is no intrahepatic biliary ductal dilatation. The hepatic veins and portal veins are patent. Gallbladder: Unremarkable. Spleen: Normal in size and attenuation. Pancreas: Unremarkable. Adrenal glands: Unremarkable. Kidneys: The contrast enhanced kidneys are normal in size and without hydronephrosis. The kidneys enhance symmetrically. A subcentimeter cortical hypodensity in the right kidney likely represents a cyst but is too small for definitive characterization. Abdominal vasculature: The abdominal aorta is normal in course and caliber. Bowel: The small bowel and colon are normal in course and caliber. The appendix is well-visualized and normal. Peritoneum: There is no intraperitoneal free air or abdominal ascites. There is a small fat-containing umbilical hernia. Lymphadenopathy: None. Pelvic viscera: The bladder, prostate, and seminal vesicles are normal as visualized. There is a small fat-containing right inguinal hernia. Skeletal structures: No lytic or blastic lesions are seen. IMPRESSION: 1. There are no acute infectious or inflammatory findings in the abdomen or pelvis. 2. There is age advanced atherosclerotic calcification of the coronary arteries. Laboratory Results 12/03/16 22:40 Red Blood Count 4.98, Mean Corpuscular Volume 86.5, Mean Corpuscular Hemoglobin 30.5, Mean Corpuscular Hemoglobin Concent 35.3, Mean Platelet Volume 8.9, Neutrophils (%) (Auto) 57.6, Lymphocytes (%) (Auto) 30.8, Monocytes (%) (Auto) 6.7, Eosinophils (%) (Auto) 3.8, Basophils (%) (Auto) 0.8, Neutrophils # (Auto) 2.25, Lymphocytes # (Auto) 1.20, Monocytes # (Auto) 0.26, Eosinophils # (Auto) 0.15, Basophils # (Auto) 0.03 12/03/16 22:40 Test 12/03/16 00:51 12/03/16 22:40 12/03/16 22:54 12/03/16 23:01 Urine Color YELLOW Urine Appearance CLEAR (CLEAR) Urine pH 7.5 (4.5-7.5) Urine Specific Irene 1.014 (1.000-1.030) Urine Protein NEG (NEG) Urine Glucose (UA) NEG (NEG) Urine Ketones NEG (NEG) Urine Occult Blood NEG (NEG) Urine Nitrite NEG (NEG) Urine Bilirubin NEG (NEG) Urine Urobilinogen NEG (NEG) Urine Leukocyte Esterase NEG (NEG) White Blood Count 3.90 K/uL (4.8-10.8) Red Blood Count 4.98 M/uL (4.7-6.1) Hemoglobin 15.2 g/dL (14.0-18.0) Hematocrit 43.1 % (42-52) Mean Corpuscular Volume 86.5 fL (80-100) Mean Corpuscular Hemoglobin 30.5 pg (25-34) Mean Corpuscular Hemoglobin Concent 35.3 g/dl (32-36) Platelet Count 231 K/uL (130-400) Mean Platelet Volume 8.9 fL (7.4-10.4) Neutrophils (%) (Auto) 57.6 % Lymphocytes (%) (Auto) 30.8 % Monocytes (%) (Auto) 6.7 % Eosinophils (%) (Auto) 3.8 % Basophils (%) (Auto) 0.8 % Neutrophils # (Auto) 2.25 K/uL (1.4-6.5) Lymphocytes # (Auto) 1.20 K/uL (1.2-3.4) Monocytes # (Auto) 0.26 K/uL (0.11-0.59) Eosinophils # (Auto) 0.15 K/uL (0-0.5) Basophils # (Auto) 0.03 K/uL (0-0.2) RDW Standard Deviation 42.2 fL (36.4-46.3) RDW Coefficient of Variation 13.2 % (11.5-14.5) Immature Granulocyte % (Auto) 0.3 % Immature Granulocyte # (Auto) 0.01 K/uL (0.00-0.02) Est Creatinine Clear Calc Drug Dose 160.4 ml/min Estimated GFR () 132.3 Estimated GFR (Non- 114.1 BUN/Creatinine Ratio 10.5 (10-20) Calcium Level 9.4 mg/dl (8.5-10.1) Total Bilirubin 0.7 mg/dl (0.2-1) Direct Bilirubin 0.1 mg/dl (0-0.2) Aspartate Amino Transf (AST/SGOT) 34 U/L (15-37) Alanine Aminotransferase (ALT/SGPT) 52 U/L (12-78) Alkaline Phosphatase 67 U/L (45-117) Total Protein 7.8 gm/dl (6.4-8.2) Albumin 4.3 gm/dl (3.4-5.0) Lipase 198 U/L (73-393) Bedside Troponin I < 0.030 ng/ml (0-0.045) Bedside Hemoglobin 14.6 g/dl (14.0-18.0) Bedside Hematocrit 43 % (42-52) Bedside Sodium 138 mEq/L (135-144) Bedside Potassium 3.8 mEq/L (3.3-5.0) Bedside Chloride 99 mEq/L (101-112) Bedside Total CO2 28 mEq/l (24-31) Anion Gap 15.0 mmol/L (16-25) Bedside Blood Urea Nitrogen 8 mg/dl (7-18) Bedside Creatinine 0.9 mg/dl (0.6-1.3) Bedside Glucose (other) 89 mg/dl (70-99) Bedside Ionized Calcium (Rex) 1.25 mmol/l (1.12-1.32) Medications Administered Medications (Trade) Dose Ordered Sig/Diego Route Start Time Stop Time Status Last Admin Dose Admin Sodium Chloride 1,000 ml @ 999 mls/hr Q1H1M STAT IV 12/03/16 22:16 12/03/16 23:16 DC 12/03/16 23:12 999 MLS/HR Morphine Sulfate (MoRPHine SULFATE INJ) 4 mg NOW STAT IV 12/03/16 22:16 12/03/16 22:21 DC 12/03/16 23:12 4 MG Morphine Sulfate (MoRPHine SULFATE INJ) 4 mg NOW STAT IV 12/04/16 01:01 12/04/16 01:02 DC 12/04/16 01:06 4 MG Acetaminophen/ Hydrocodone Bitart ([place] 5/325 Tab) 1 tab NOW STAT PO 12/04/16 01:48 12/04/16 01:50 DC 12/04/16 01:54 1 TAB ECG Indication: abdominal pain Rate (beats per minute): 62 Rhythm: normal sinus Findings: no acute ischemic change, no ectopy Change: no significant change (when compared to EKG from 12/02/2016) Medical Decision CC: Patient presenting with complaint of epigastric/right upper quadrant pain Interpretation of Labs: Leukopenia, no anemia, no significant electrolyte abnormalities, normal renal function, normal liver enzymes and lipase, negative troponin, UA negative. Differential Diagnosis: Includes, but not limited to gastritis, peptic ulcer disease, perforated ulcer, bowel perforation, bowel obstruction, cholecystitis, cholelithiasis, pancreatitis, choledocholithiasis, among others. Medication Reconciliation: I attest that I have personally reviewed the patient' s current medication list. Vital signs review: I reviewed the patient's vital signs and interpret them as follows: T: Afebrile; BP: Normotensive; HR: Within normal limits; RR: Within normal limits; Pulse Ox: Within normal limits on room air. Blood pressure screening: The patient was found to have normal blood pressure on screening and does not require follow-up for repeat blood pressure check. Summary: Patient was evaluated at bedside, history of physical exam performed. Patient is alert and oriented, in no acute distress, but does appear uncomfortable and in pain. Patient is most tender in the epigastrium right upper quadrant to palpation, the remainder of the abdomen is nontender. Orders were placed at bedside for labs, UA, IV fluids for hydration, IV pain and nausea medicine, and CT abdomen/pelvis to evaluate persistently worsening abdominal pain. Patient discussed with Dr. Pride, who agrees with my assessment and plan. Labs reviewed as above, no acute abnormalities found. EKG reviewed, no ischemic changes. Negative troponin with constant ongoing pain for greater than 48 hours, doubt ACS. Imaging reviewed, unremarkable and no findings to explain patient's pain. Given the patient's physical exam findings and history of increased pain with food, I question whether this may still be gallbladder disease, though no imaging or lab results to support this. Symptoms could also represent worsening GERD/gastritis. I did encourage him to follow up with his PCP regarding a possible HIDA scan for further evaluation, as well as a GI specialist, referral contact info provided. Patient reassessed multiple times throughout ED stay, he does report improved pain, but continues to be uncomfortable. Small Rx for [place] provided to help manage severe pain until follow up, patient educated on use. Patient updated on all results and plan for discharge, he was encouraged to follow closely with his PCP in the next few days. Also given strict return precautions should his symptoms worsen, he verbalized understanding. Patient was discharged home in stable condition and ambulatory. Impression Primary Impression: RUQ abdominal pain Departure Information Dispostion Home / Self-Care Condition GOOD Prescriptions Hydrocodone/Acetaminophen 5MG/325MG ([place] 5MG/325MG) Tab 1-2 TABLET PO Q6H Y for Pain for 3 Days, #24 TAB For Initial Treatment Prov: Lamar Velez CRNP 12/04/16 Referrals Omar Doty M.D. (PCP) Patient Instructions ED Abdominal Pain Gallstone Poss, ED Epigastric Pain [facility], [facility] Additional Instructions You have been treated in the Emergency Department your Abdominal Pain. Laboratory results and imaging studies have ruled out any emergent causes for your abdominal pain which would warrant admission or surgery. You have been prescribed [place] to be used for pain control. This is a narcotic medication. You cannot drive or consume alcohol while on this medicine. This medicine should only be used for pain that cannot be controlled with over-the- counter pain medicines. Continue taking the Carafate as directed. For pain control, you can use the following [id number] medicines (if >12 yo): Avoid NSAIDs (aspirin, Advil, ibuprofen, Aleve, etc) Drink plenty of fluids and stay well hydrated. Follow-up with your PCP on Tuesday. Discuss with your doctor about having a HIDA scan to further evaluate for gallbladder disease. You can also follow up with microwave engineer for further management of your abdominal pain. Return to the emergency department if your symptoms persist despite treatment plan outlined above or if the following symptoms occur: Severe worsening pain, fever/chills, vomiting blood or bile, blood in your stool or urine. Work Instructions Return To Work: 3 days
[2016-12-03] MEDS ORDERED: OPTIRAY 320 IV PRN (22:30)
[2016-12-03 23:03] LABS: BASO % 0.8 %; BASO ABS # 0.03 K/uL (0-0.2); COMPLETE YES; EOS % 3.8 %; HEMATOCRIT 43.1 % (42-52); IG% 0.3 %; LYMPH % 30.8 %; MEAN CELL VOLUME 86.5 fL (80-100); MEAN CORPUSCULAR HEMOGLOBIN 30.5 pg (25-34); MEAN CORPUSCULAR HGB CONC 35.3 g/dl (32-36); MEAN PLATELET VOLUME 8.9 fL (7.4-10.4); MONO % 6.7 %; NEUT % 57.6 %; PLATELET COUNT 231 K/uL (130-400); RED BLOOD COUNT 4.98 M/uL (4.7-6.1)
[2016-12-03 23:11] LABS: ISTAT CREATININE 0.9 mg/dl (0.6-1.3); ISTAT HEMOGLOBIN 14.6 g/dl (14.0-18.0); ISTAT IONIZED CALCIUM 1.25 mmol/l (1.12-1.32)
[2016-12-03 23:35] LABS: BUN/CREATININE RATIO 10.5 (10-20); CALCIUM 9.4 mg/dl (8.5-10.1); CREATININE 0.8 mg/dl (0.60-1.40); POTASSIUM 3.7 mmol/L (3.5-5.1)
--- NOTE | 2016-12-04 00:52 | DIAGNOSTIC IMAGING REPORT ---
CT SCAN OF THE ABDOMEN AND PELVIS WITH IV CONTRAST CLINICAL HISTORY: Epigastric abdominal pain. COMPARISON STUDY: Abdominal CT dated 07/07/2011. Abdominal ultrasound dated 12/02/2016. TECHNIQUE: Following the IV administration of 94 cc of Optiray 320, CT scan of the abdomen and pelvis is performed from the lung bases to the proximal femora. Images are reviewed in the axial, sagittal, and coronal planes. IV contrast was administered without complication. A dose lowering technique was utilized adhering to the principles of ALARA. CT DOSE: 1520.41 mGy.cm FINDINGS: Lung bases: The heart is normal in size and without pericardial effusion. There are scattered coronary artery calcifications. The lung bases are clear. There is a tiny hiatal hernia. Liver: The contrast-enhanced liver is normal in size, contour, and attenuation. There is no intrahepatic biliary ductal dilatation. The hepatic veins and portal veins are patent. Gallbladder: Unremarkable. Spleen: Normal in size and attenuation. Pancreas: Unremarkable. Adrenal glands: Unremarkable. Kidneys: The contrast enhanced kidneys are normal in size and without hydronephrosis. The kidneys enhance symmetrically. A subcentimeter cortical hypodensity in the right kidney likely represents a cyst but is too small for definitive characterization. Abdominal vasculature: The abdominal aorta is normal in course and caliber. Bowel: The small bowel and colon are normal in course and caliber. The appendix is well-visualized and normal. Peritoneum: There is no intraperitoneal free air or abdominal ascites. There is a small fat-containing umbilical hernia. Lymphadenopathy: None. Pelvic viscera: The bladder, prostate, and seminal vesicles are normal as visualized. There is a small fat-containing right inguinal hernia. Skeletal structures: No lytic or blastic lesions are seen. IMPRESSION: 1. There are no acute infectious or inflammatory findings in the abdomen or pelvis. 2. There is age advanced atherosclerotic calcification of the coronary arteries. Electronically signed by: Riley Kimble M.D. 12/04/2016 12:50 AM Dictated Date/Time: 12/04/2016 12:46 AM
[2016-12-04] MEDS ORDERED: MoRPHine SULFATE 4 MG/ML 1 ML CARP\\VIAL IV STA (01:01)
[2016-12-04 01:07] LABS: URINE APPEARANCE CLEAR (CLEAR); URINE BILIRUBIN NEG (NEG); URINE COLOR YELLOW; URINE NITRITE NEG (NEG); URINE PH 7.5 (4.5-7.5); URINE SPECIFIC GRAVITY 1.014 (1.000-1.030); UROBILINOGEN NEG (NEG); ZZUR CULT IF INDIC CLEAN CATCH NO
[2016-12-04 01:22] LABS: MANUAL MICROSCOPIC REQUIRED? NO; REVIEW REQ? NO
[2016-12-04] MEDS ORDERED: HYDROCODONE/ACETAMOPHEN 5/325MG TAB PO STA (01:48)
[2016-12-04] MEDS ORDERED: HYDR-5688 PO (02:02)
[2016-12-04 02:05] VITALS: BP 133/78; PULSE 64; O2SAT 100
== END 2016-12-04 02:06 | disposition home or self-care (01) ==
LOC: C.EDB 20:51 → C.EDC 12-04 02:06
DX: R10.11 Right upper quadrant pain (principal); F41.9 Anxiety disorder, unspecified; F32.9 Major depressive disorder, single episode, unspecified; K21.9 Gastro-esophageal reflux disease without esophagitis; I10 Essential (primary) hypertension; Z83.3 Family history of diabetes mellitus; Z82.49 Family history of ischemic heart disease and other diseases of the circulatory system; F17.200 Nicotine dependence, unspecified, uncomplicated

== ENCOUNTER 2016-12-05 16:54 | Emergency (ER) | payer OTHER ==
[~2016-12-05] VITALS: Ht 172.7 cm; Wt 121.2 kg
[~2016-12-05 16:54] MED LIST changes: +HYDR-5688 PO; -SUCR1TAB29 PO
[2016-12-05 17:34] VITALS: Ht 172.7 cm; Wt 121.2 kg
[2016-12-05] MEDS ORDERED: KETOROLAC TROMETHAMINE 30 MG/ML VIAL IV STA (18:10)
[2016-12-05 18:37] LABS: BASO % 0.6 %; BASO ABS # 0.02 K/uL (0-0.2); COMPLETE YES; EOS % 5.6 %; HEMATOCRIT 42.4 % (42-52); IG% 0.6 %; LYMPH % 38.1 %; LYMPH ABS # 1.36 K/uL (1.2-3.4); MEAN CELL VOLUME 86.5 fL (80-100); MEAN CORPUSCULAR HEMOGLOBIN 31.2 pg (25-34); MEAN CORPUSCULAR HGB CONC 36.1 g/dl (32-36); MEAN PLATELET VOLUME 8.8 fL (7.4-10.4); MONO % 6.4 %; NEUT % 48.7 %; PLATELET COUNT 224 K/uL (130-400); WHITE BLOOD COUNT 3.57 K/uL (4.8-10.8)
[2016-12-05 18:58] LABS: ALKALINE PHOSPHATASE 73 U/L (45-117); ALT/SGPT 56 U/L (12-78); AST/SGOT 35 U/L (15-37); BLOOD UREA NITROGEN 11 mg/dl (7-18); BUN/CREATININE RATIO 14.9 (10-20); CALCIUM 9.1 mg/dl (8.5-10.1); CARBON DIOXIDE 27 mmol/L (21-32); CHLORIDE 102 mmol/L (98-107); CREATININE 0.76 mg/dl (0.60-1.40); GLUCOSE 104 mg/dl (70-99); SODIUM 137 mmol/L (136-145)
--- NOTE | 2016-12-05 20:25 | EMERGENCY ROOM VISIT NOTE ---
History Report prepared by Jamil: Ale Alexis Under the Supervision of: Dr. Maury Floyd D.O. First contact with patient: 18:03 Chief Complaint: ABDOMINAL PAIN Stated Complaint: RUQ PAIN, NAUSEA, NO APPETITE History of Present Illness The patient is a 36 year old male who presents to the Emergency Room with complaints of worsening abdominal pain that started 4 days ago. The patient rates his pain a 8/10 in severity. The patient reports that this is the third time coming to the ED for these symptoms. He reports he has been experiencing nausea and loss of appetite. He reports that he has been clammy for the past couple of days. He notes that the director at the ED called him 3 hours ago and told him to come back to the ED for further evaluation since his symptoms were worsening. Source of History: patient Onset: 4 days ago Position: abdomen (RUQ) Symptom Intensity: 8/10 Timing: worsening Associated Symptoms: + nausea Note: The patient states that he is also experiencing a loss of appetite and he has been feeling clammy. Review of Systems See HPI for pertinent positives & negatives. A total of 10 systems reviewed and were otherwise negative. Past Medical & Surgical Medical Problems: (1) Anxiety disorder (2) Back pain (3) Back pain (4) Depression (5) Depressive disorder (6) Esophageal Reflux (7) GERD (gastroesophageal reflux disease) (8) Hand crush injury (9) Herniated disc (10) HTN (hypertension) (11) Left hand pain (12) Left shoulder pain (13) Shoulder pain Surgical Problems: (1) H/O umbilical hernia repair (2) History of carpal tunnel release (3) History of carpal tunnel surgery of left wrist (4) History of herniorrhaphy (5) History of umbilical hernia repair (6) S/P carpal tunnel release Family History Diabetes mellitus MOTHER Gallbladder disease MOTHER Hypertension MOTHER Lung disease MOTHER Social History Smoking Status: Current Every Day Smoker Alcohol Use: occasionally Marital Status: Housing Status: lives with significant other Occupation Status: employed Current/Historical Medications Scheduled Carisoprodol (Soma), 350 MG PO QID Fluoxetine (Prozac), 40 MG PO DAILY Gabapentin (Neurontin), 400 MG PO QID Hydrochlorothiazide (Hctz), 12.5 MG PO DAILY Lisinopril (Zestril), 20 MG PO DAILY Nortriptyline Hcl (Pamelor), 75 MG PO HS Omeprazole (Prilosec), 40 MG PO DAILY Sucralfate (Carafate), 1 GM PO TID Scheduled PRN Albuterol Hfa (Ventolin Hfa), 2 PUFFS INH UD PRN for SOB/Wheezing Fluticasone Propionate (Nasal) (Flonase Allergy Relief), 1 SPRAY ANNY BID PRN for Allergy Symptoms Hydrocodone/Acetaminophen 5MG/325MG ([place] 5MG/325MG), 1-2 TABLET PO Q6H PRN for Pain Allergies Coded Allergies: No Known Allergies (Unverified , 12/03/16) Physical Exam Vital Signs Date Time Temp Pulse Resp B/P (MAP) Pulse Ox O2 Delivery O2 Flow Rate FiO2 12/05/16 20:16 36.6 70 18 125/79 96 Room Air 12/05/16 18:30 69 18 122/75 97 Room Air 12/05/16 17:34 36.8 73 18 133/79 98 Room Air Physical Exam CONSTITUTIONAL/VITAL SIGNS: Reviewed / noted above. GENERAL: Non-toxic in appearance. INTEGUMENTARY: Warm, dry, and [place]. HEAD: Normocephalic. EYES: without scleral icterus or trauma. ENT/OROPHARYNX: clear and moist. LYMPHADENOPATHY/NECK: Is supple without lymphadenopathy or meningismus. RESPIRATORY: Lungs clear and equal. CARDIOVASCULAR: Regular rate and rhythm. GI/ABDOMEN: Soft and tenderness to right upper quadrant. No organomegaly or pulsatile mass. No rebound or guarding. Normal bowel sounds. EXTREMITIES: Warm and well perfused. BACK: No CVA tenderness. NEUROLOGICAL: Intact without focal deficits. PSYCHIATRIC: normal affect. MUSCULOSKELETAL: Normally developed with good muscle tone. Medical Decision & Procedures Laboratory Results 12/05/16 18:28 Red Blood Count 4.90, Mean Corpuscular Volume 86.5, Mean Corpuscular Hemoglobin 31.2, Mean Corpuscular Hemoglobin Concent 36.1, Mean Platelet Volume 8.8, Neutrophils (%) (Auto) 48.7, Lymphocytes (%) (Auto) 38.1, Monocytes (%) (Auto) 6.4, Eosinophils (%) (Auto) 5.6, Basophils (%) (Auto) 0.6, Neutrophils # (Auto) 1.74, Lymphocytes # (Auto) 1.36, Monocytes # (Auto) 0.23, Eosinophils # (Auto) 0.20, Basophils # (Auto) 0.02 12/05/16 18:28 Test 12/05/16 18:28 White Blood Count 3.57 K/uL (4.8-10.8) Red Blood Count 4.90 M/uL (4.7-6.1) Hemoglobin 15.3 g/dL (14.0-18.0) Hematocrit 42.4 % (42-52) Mean Corpuscular Volume 86.5 fL (80-100) Mean Corpuscular Hemoglobin 31.2 pg (25-34) Mean Corpuscular Hemoglobin Concent 36.1 g/dl (32-36) Platelet Count 224 K/uL (130-400) Mean Platelet Volume 8.8 fL (7.4-10.4) Neutrophils (%) (Auto) 48.7 % Lymphocytes (%) (Auto) 38.1 % Monocytes (%) (Auto) 6.4 % Eosinophils (%) (Auto) 5.6 % Basophils (%) (Auto) 0.6 % Neutrophils # (Auto) 1.74 K/uL (1.4-6.5) Lymphocytes # (Auto) 1.36 K/uL (1.2-3.4) Monocytes # (Auto) 0.23 K/uL (0.11-0.59) Eosinophils # (Auto) 0.20 K/uL (0-0.5) Basophils # (Auto) 0.02 K/uL (0-0.2) RDW Standard Deviation 41.7 fL (36.4-46.3) RDW Coefficient of Variation 13.1 % (11.5-14.5) Immature Granulocyte % (Auto) 0.6 % Immature Granulocyte # (Auto) 0.02 K/uL (0.00-0.02) Anion Gap 8.0 mmol/L (3-11) Est Creatinine Clear Calc Drug Dose 168.5 ml/min Estimated GFR () 135.1 Estimated GFR (Non- 116.6 BUN/Creatinine Ratio 14.9 (10-20) Calcium Level 9.1 mg/dl (8.5-10.1) Total Bilirubin 0.6 mg/dl (0.2-1) Direct Bilirubin < 0.1 mg/dl (0-0.2) Aspartate Amino Transf (AST/SGOT) 35 U/L (15-37) Alanine Aminotransferase (ALT/SGPT) 56 U/L (12-78) Alkaline Phosphatase 73 U/L (45-117) Total Protein 7.7 gm/dl (6.4-8.2) Albumin 4.0 gm/dl (3.4-5.0) Lipase 204 U/L (73-393) Laboratory results as stated above per my review. Medications Administered Medications (Trade) Dose Ordered Sig/[facility] Route Start Time Stop Time Status Last Admin Dose Admin Ketorolac Tromethamine (Toradol Inj) 30 mg NOW STAT IV 12/05/16 18:10 12/05/16 18:12 DC 12/05/16 18:27 30 MG ED Course 1800: Previous medical records were reviewed. The patient was evaluated in room C9. A complete history and physical examination was performed. 1809: Toradol Inj 30 mg IV. 2026: On reevaluation, the patient is resting comfortably. I discussed the results and findings with the patient. He verbalized agreement of the treatment plan. He was discharged home. Medical Decision Differential considered: pancreatitis, hepatitis, or acute cholecystitis, AAA, UTI, pyelonephritis, kidney stones, appendicitis, diverticulitis, shingles, bowel obstruction mesenteric ischemia, intussusception,hernia, testicular torsion. This is a 36-year-old male who presents to the ED with a chief complaint of abdominal pain. The patient has been here several times in the last few days. He has had a CAT scan of his abdomen and pelvis as well as ultrasound of his gallbladder in addition to several sets of blood work. He is to see his PCP tomorrow for a hiatus scan. The patient was called today and because he was still having discomfort he was told to return. His exam was unremarkable with exception of some right upper quadrant abdominal tenderness. His blood work was totally unremarkable including LFTs and lipase. The patient was felt to be stable for discharge and outpatient follow-up. He was treated with IV Toradol. Medication Reconcilliation Current Medication List: was personally reviewed by me Blood Pressure Screening Patient's blood pressure: Normal blood pressure Impression Primary Impression: RUQ abdominal pain Scribe Attestation The scribe's documentation has been prepared under my direction and personally reviewed by me in its entirety. I confirm that the note above accurately reflects all work, treatment, procedures, and medical decision making performed by me. Departure Information Dispostion Home / Self-Care Referrals Omar Doty M.D. (PCP) Patient Instructions My [facility] Additional Instructions Follow-up with your PCP tomorrow as scheduled.
[2016-12-05 20:33] VITALS: BP 125/79; PULSE 70; TEMP 36.6; O2SAT 96
== END 2016-12-05 20:34 | disposition home or self-care (01) ==
LOC: C.EDB 16:55 → C.EDC 20:34
DX: R10.11 Right upper quadrant pain (principal); F41.9 Anxiety disorder, unspecified; F32.9 Major depressive disorder, single episode, unspecified; K21.9 Gastro-esophageal reflux disease without esophagitis; I10 Essential (primary) hypertension; Z83.3 Family history of diabetes mellitus; Z82.49 Family history of ischemic heart disease and other diseases of the circulatory system; F17.200 Nicotine dependence, unspecified, uncomplicated

== ENCOUNTER 2016-12-07 10:58 | Emergency (ER) | payer OTHER ==
[~2016-12-07] VITALS: Ht 172.7 cm; Wt 120.3 kg
[2016-12-07 11:02] VITALS: TEMP 37; Ht 172.7 cm; Wt 120.3 kg
[2016-12-07] MEDS ORDERED: ONDANSETRON INJ 2 MG/ML 2 ML VIAL IV STA (11:24)
[2016-12-07] MEDS ORDERED: KETOROLAC TROMETHAMINE 30 MG/ML VIAL IV STA (11:24)
--- NOTE | 2016-12-07 11:36 | EMERGENCY ROOM VISIT NOTE ---
History Report prepared by Jamil: Susanne Boston Under the Supervision of: Dr. Omar Veloz D.O. First contact with patient: 11:12 Chief Complaint: ABDOMINAL PAIN Stated Complaint: RT CHEST WALL, RUQ, EPIGASTRIC PAINS, N, DRY HEAVE History of Present Illness The patient is a 36 year old male who presents to the Emergency Room with complaints of waxing and waning chest pain that began five days ago. He currently rates his discomfort as a 10/10 in severity. The patient states that last he had just gotten home from work and states that he ate eggs and toast. He states that he developed upper abdominal pain. The patient states that he was evaluated in the emergency multiple times since then. He states that his pain worsens with movement. The patient reports nausea and dry heaving , but denies any vomiting. He additionally notes worsened pain with breathing. The patient states that he saw his PCP's office yesterday and states that the resident he saw felt that the patient's pain was due to a kidney stone. He states that the resident told him that he no longer needed a GI consult. The patient denies any hematuria or urinary symptoms. Source of History: patient Onset: five days ago Position: chest Symptom Intensity: 10/10 Timing: waxes/wanes Modifying Factors (Worsening): breathing, movement Associated Symptoms: + nausea, No vomiting Note: Associated Symptoms: dry heaving Review of Systems See HPI for pertinent positives & negatives. A total of 10 systems reviewed and were otherwise negative. Past Medical & Surgical Medical Problems: (1) Anxiety disorder (2) Back pain (3) Back pain (4) Depression (5) Depressive disorder (6) Esophageal Reflux (7) GERD (gastroesophageal reflux disease) (8) Hand crush injury (9) Herniated disc (10) HTN (hypertension) (11) Left hand pain (12) Left shoulder pain (13) Shoulder pain Surgical Problems: (1) H/O umbilical hernia repair (2) History of carpal tunnel release (3) History of carpal tunnel surgery of left wrist (4) History of herniorrhaphy (5) History of umbilical hernia repair (6) S/P carpal tunnel release Family History Diabetes mellitus MOTHER Gallbladder disease MOTHER Hypertension MOTHER Lung disease MOTHER Social History Smoking Status: Current Some Day Smoker Alcohol Use: occasionally Marital Status: Housing Status: lives with significant other Occupation Status: employed Current/Historical Medications Scheduled Carisoprodol (Soma), 350 MG PO QID Fluoxetine (Prozac), 40 MG PO DAILY Gabapentin (Neurontin), 400 MG PO QID Hydrochlorothiazide (Hctz), 12.5 MG PO DAILY Lisinopril (Zestril), 20 MG PO DAILY Nortriptyline Hcl (Pamelor), 75 MG PO HS Omeprazole (Prilosec), 40 MG PO DAILY Sucralfate (Carafate), 1 GM PO TID Scheduled PRN Albuterol Hfa (Ventolin Hfa), 2 PUFFS INH UD PRN for SOB/Wheezing Fluticasone Propionate (Nasal) (Flonase Allergy Relief), 1 SPRAY ANNY BID PRN for Allergy Symptoms Oxycodone Immediate Rel Tab (Roxicodone Ir), 1-2 TAB PO Q4H PRN for Severe Pain Allergies Coded Allergies: NSAIDs (Unverified Allergy, Unknown, upset stomach, 12/07/16) Physical Exam Vital Signs Date Time Temp Pulse Resp B/P (MAP) Pulse Ox O2 Delivery O2 Flow Rate FiO2 12/07/16 13:00 76 21 134/84 96 Room Air 12/07/16 12:18 72 12/07/16 11:02 37.0 82 20 127/79 99 Room Air Physical Exam GENERAL: Patient is awake, alert, mildly anxious appearing and uncomfortable. EYES: The conjunctivae are clear. The pupils are round and reactive. EARS, NOSE, MOUTH AND THROAT: The nose is without any evidence of any deformity. Mucous membranes are moist tongue is midline NECK: The neck is nontender and supple. RESPIRATORY: Normal respiratory effort is noted there is no evidence of wheezing rhonchi or rales CARDIOVASCULAR: Regular rate and rhythm noted there no murmurs rubs or gallops normal S1 normal S2 GASTROINTESTINAL: The abdomen is soft. Bowel sounds are present in all quadrants. Abdomen is nontender BACK: No midline tenderness or or step-off noted range of motion in flexion extension as well as rotation no signs of muscle spasm noted MUSCULOSKELETAL/EXTREMITIES: There is no evidence of gross deformity full range of motion is noted in the hips and shoulders, tenderness over right ribcage. SKIN: There is no obvious evidence of any rash. There are no petechiae, pallor or cyanosis noted. No signs of shingles NEUROLOGIC: Patient is awake alert and oriented x3 strength is symmetric patellar reflexes are 2+ bilaterally Medical Decision & Procedures ER Provider Diagnostic Interpretation: X-ray results as stated below per interpretation by me and the radiologist. KUB CLINICAL HISTORY: Right-sided abdominal pain COMPARISON STUDY: No previous studies for comparison. FINDINGS: There is no pathologic bowel dilatation. There are no calcifications suspicious for renal calculi. There is a right pelvic basin calcification likely are presenting a phlebolith. IMPRESSION: No evidence of pathologic bowel dilatation Electronically signed by: Jaylen Morales M.D. 12/07/2016 11:55 AM Dictated Date/Time: 12/07/2016 11:54 AM CHEST ONE VIEW PORTABLE CLINICAL HISTORY: Right-sided chest pain. Abdominal pain. COMPARISON STUDY: 12/02/2016 FINDINGS: The cardiac and mediastinal contours are normal. There is no evidence of focal pulmonary consolidation. There is no evidence of failure. No pleural effusions are visualized.[ No free intraperitoneal air is visualized. IMPRESSION: No active disease in the chest. Electronically signed by: Jaylen Morales M.D. 12/07/2016 11:53 AM Dictated Date/Time: 12/07/2016 11:53 AM Laboratory Results 12/07/16 11:30 Red Blood Count 5.05, Mean Corpuscular Volume 85.9, Mean Corpuscular Hemoglobin 31.3, Mean Corpuscular Hemoglobin Concent 36.4, Mean Platelet Volume 8.9, Neutrophils (%) (Auto) 53.6, Lymphocytes (%) (Auto) 33.1, Monocytes (%) (Auto) 7.1, Eosinophils (%) (Auto) 4.9, Basophils (%) (Auto) 0.8, Neutrophils # (Auto) 1.96, Lymphocytes # (Auto) 1.21, Monocytes # (Auto) 0.26, Eosinophils # (Auto) 0.18, Basophils # (Auto) 0.03 12/07/16 11:30 Test 12/07/16 11:30 12/07/16 11:40 12/07/16 12:05 White Blood Count 3.66 K/uL (4.8-10.8) Red Blood Count 5.05 M/uL (4.7-6.1) Hemoglobin 15.8 g/dL (14.0-18.0) Hematocrit 43.4 % (42-52) Mean Corpuscular Volume 85.9 fL (80-100) Mean Corpuscular Hemoglobin 31.3 pg (25-34) Mean Corpuscular Hemoglobin Concent 36.4 g/dl (32-36) Platelet Count 226 K/uL (130-400) Mean Platelet Volume 8.9 fL (7.4-10.4) Neutrophils (%) (Auto) 53.6 % Lymphocytes (%) (Auto) 33.1 % Monocytes (%) (Auto) 7.1 % Eosinophils (%) (Auto) 4.9 % Basophils (%) (Auto) 0.8 % Neutrophils # (Auto) 1.96 K/uL (1.4-6.5) Lymphocytes # (Auto) 1.21 K/uL (1.2-3.4) Monocytes # (Auto) 0.26 K/uL (0.11-0.59) Eosinophils # (Auto) 0.18 K/uL (0-0.5) Basophils # (Auto) 0.03 K/uL (0-0.2) RDW Standard Deviation 41.3 fL (36.4-46.3) RDW Coefficient of Variation 13.1 % (11.5-14.5) Immature Granulocyte % (Auto) 0.5 % Immature Granulocyte # (Auto) 0.02 K/uL (0.00-0.02) Prothrombin Time 11.1 SECONDS (9.0-12.0) Prothromb Time International Ratio 1.0 (0.9-1.1) Activated Partial Thromboplast Time 30.1 SECONDS (21.0-31.0) Partial Thromboplastin Ratio 1.2 Anion Gap 8.0 mmol/L (3-11) Est Creatinine Clear Calc Drug Dose 153.7 ml/min Estimated GFR () 130.3 Estimated GFR (Non- 112.4 BUN/Creatinine Ratio 16.3 (10-20) Calcium Level 9.4 mg/dl (8.5-10.1) Total Bilirubin 0.7 mg/dl (0.2-1) Direct Bilirubin 0.1 mg/dl (0-0.2) Aspartate Amino Transf (AST/SGOT) 39 U/L (15-37) Alanine Aminotransferase (ALT/SGPT) 61 U/L (12-78) Alkaline Phosphatase 67 U/L (45-117) Total Creatine Kinase 119 U/L (39-308) Creatine Kinase MB 0.8 ng/ml (0.5-3.6) Creatine Kinase MB Ratio 0.7 (0-3.0) Troponin I < 0.015 ng/ml (0-0.045) Total Protein 7.7 gm/dl (6.4-8.2) Albumin 4.0 gm/dl (3.4-5.0) Lipase 206 U/L (73-393) Bedside D-Dimer 183 ng/mlFEU (0-450) Urine Color YELLOW Urine Appearance CLEAR (CLEAR) Urine pH 7.5 (4.5-7.5) Urine Specific [place] 1.013 (1.000-1.030) Urine Protein NEG (NEG) Urine Glucose (UA) NEG (NEG) Urine Ketones NEG (NEG) Urine Occult Blood NEG (NEG) Urine Nitrite NEG (NEG) Urine Bilirubin NEG (NEG) Urine Urobilinogen NEG (NEG) Urine Leukocyte Esterase NEG (NEG) Laboratory results per my review. Medications Administered Medications (Trade) Dose Ordered Sig/Diego Route Start Time Stop Time Status Last Admin Dose Admin Ketorolac Tromethamine (Toradol Inj) 30 mg NOW STAT IV 12/07/16 11:24 12/07/16 11:25 DC 12/07/16 11:57 30 MG Ondansetron HCl (Zofran Inj) 4 mg NOW STAT IV 12/07/16 11:24 12/07/16 11:25 DC 12/07/16 11:57 4 MG ECG Indication: chest pain Rate (beats per minute): 72 Rhythm: normal sinus Findings: no acute ischemic change, no ectopy Comparison ECG Date: 12/03/16 Change: no significant change ED Course 1118: The patient was evaluated in room C5. A complete history and physical examination were performed. 1124: ordered Zofran Inj 4 mg IV, Toradol Inj 30 mg IV. Medical Decision Differential diagnosis: Etiologies such as cardiac ischemia, aortic dissection, pulmonary embolism, pneumonia, pneumothorax, musculoskeletal, infections, pericarditis, myocarditis , esophageal rupture, gastrointestinal, as well as others were entertained. Nursing notes reviewed. The patient's previous electronic medical records were reviewed. The patient is a 36-year-old male who presents to the emergency department for an evaluation of right-sided pain. The patient was seen in our facility recently for similar complaints. The patient recently had a CAT scan which showed no definite cause for his pain. At this time the patient's pain appears to be more pleuritic in nature and reproducible to palpation. The patient's d- dimer continues to be negative. The chest x-ray did not show any acute disease. The patient was treated with pain medication in the emergency department. I discussed the patient's laboratory and radiographic studies with him. He was encouraged to rest and avoid any strenuous activity. He was also encouraged to continue all medications as prescribed and call his family doctor for further follow-up. He is already scheduled with a follow-up appointment with his doctor. He was encouraged to return the emergency apartment immediately if symptoms change worsen or the need arises. Medication Reconcilliation Current Medication List: was personally reviewed by me Impression Primary Impression: Musculoskeletal chest pain Additional Impression: Costochondritis Scribe Attestation The scribe's documentation has been prepared under my direction and personally reviewed by me in its entirety. I confirm that the note above accurately reflects all work, treatment, procedures, and medical decision making performed by me. Departure Information Prescriptions Oxycodone Immediate Rel Tab (ROXICODONE IR) 5 Mg Tab 1-2 TAB PO Q4H Y for Severe Pain, #24 TAB Prov: Omar Veloz, DO 12/07/16 Referrals Omar Doty M.D. (PCP) Patient Instructions My [facility] Problem Qualifiers
[2016-12-07 11:50] LABS: BASO % 0.8 %; BASO ABS # 0.03 K/uL (0-0.2); COMPLETE YES; EOS % 4.9 %; HEMATOCRIT 43.4 % (42-52); IG% 0.5 %; LYMPH % 33.1 %; LYMPH ABS # 1.21 K/uL (1.2-3.4); MEAN CELL VOLUME 85.9 fL (80-100); MEAN CORPUSCULAR HEMOGLOBIN 31.3 pg (25-34); MEAN CORPUSCULAR HGB CONC 36.4 g/dl (32-36); MEAN PLATELET VOLUME 8.9 fL (7.4-10.4); MONO % 7.1 %; NEUT % 53.6 %; PLATELET COUNT 226 K/uL (130-400); RED BLOOD COUNT 5.05 M/uL (4.7-6.1); WHITE BLOOD COUNT 3.66 K/uL (4.8-10.8)
--- NOTE | 2016-12-07 11:54 | DIAGNOSTIC IMAGING REPORT ---
CHEST ONE VIEW PORTABLE CLINICAL HISTORY: Right-sided chest pain. Abdominal pain. COMPARISON STUDY: 12/02/2016 FINDINGS: The cardiac and mediastinal contours are normal. There is no evidence of focal pulmonary consolidation. There is no evidence of failure. No pleural effusions are visualized.[ No free intraperitoneal air is visualized. IMPRESSION: No active disease in the chest. Electronically signed by: Jaylen Morales M.D. 12/07/2016 11:53 AM Dictated Date/Time: 12/07/2016 11:53 AM
--- NOTE | 2016-12-07 11:56 | DIAGNOSTIC IMAGING REPORT ---
KUB CLINICAL HISTORY: Right-sided abdominal pain COMPARISON STUDY: No previous studies for comparison. FINDINGS: There is no pathologic bowel dilatation. There are no calcifications suspicious for renal calculi. There is a right pelvic basin calcification likely are presenting a phlebolith. IMPRESSION: No evidence of pathologic bowel dilatation Electronically signed by: Jaylen Morales M.D. 12/07/2016 11:55 AM Dictated Date/Time: 12/07/2016 11:54 AM
[2016-12-07 11:57] LABS: PARTIAL THROMBOPLASTIN RATIO 1.2; PROTHROMBIN TIME (PATIENT) 11.1 SECONDS (9.0-12.0)
[2016-12-07 12:09] LABS: ALT/SGPT 61 U/L (12-78); AST/SGOT 39 U/L (15-37); BLOOD UREA NITROGEN 14 mg/dl (7-18); BUN/CREATININE RATIO 16.3 (10-20); CALCIUM 9.4 mg/dl (8.5-10.1); CARBON DIOXIDE 25 mmol/L (21-32); CHLORIDE 103 mmol/L (98-107); CREATININE 0.83 mg/dl (0.60-1.40); GLUCOSE 97 mg/dl (70-99); POTASSIUM 3.8 mmol/L (3.5-5.1); SODIUM 136 mmol/L (136-145)
[2016-12-07 12:14] LABS: ALKALINE PHOSPHATASE 67 U/L (45-117); CKMB/CK RATIO 0.7 (0-3.0)
[2016-12-07 12:46] LABS: URINE APPEARANCE CLEAR (CLEAR); URINE BILIRUBIN NEG (NEG); URINE COLOR YELLOW; URINE NITRITE NEG (NEG); URINE PH 7.5 (4.5-7.5); URINE SPECIFIC GRAVITY 1.013 (1.000-1.030); UROBILINOGEN NEG (NEG)
[2016-12-07 12:53] LABS: MANUAL MICROSCOPIC REQUIRED? NO; REVIEW REQ? NO
[2016-12-07 13:00] VITALS: BP 134/84; PULSE 76; O2SAT 96
[2016-12-07] MEDS ORDERED: FLUO40CA8 PO (13:07)
[2016-12-07] MEDS ORDERED: OXYC1TAB3 PO (13:11)
[2016-12-07] MEDS ORDERED: GABA400C PO (13:48)
[2016-12-07] MEDS ORDERED: VNTHFA/IN INH (19:44)
[2016-12-07] MEDS ORDERED: FLUT0.15 NAE (21:16)
[2016-12-07] MEDS ORDERED: CARI350T28 PO (21:17)
[2016-12-07] MEDS ORDERED: OMEP40CA41 PO (21:49)
[2016-12-07] MEDS ORDERED: LISI-725 PO (22:14)
[2016-12-07] MEDS ORDERED: HYDR12.56 PO (22:14)
[2016-12-07] MEDS ORDERED: NORT75CA PO (22:14)
[2016-12-07] MEDS ORDERED: SUCR1TAB29 PO (22:19)
== END 2016-12-07 13:28 | disposition home or self-care (01) ==
LOC: C.EDB 11:00 → C.EDC 13:28
DX: R07.89 Other chest pain (principal); M94.0 Chondrocostal junction syndrome [Tietze]; R11.0 Nausea; I10 Essential (primary) hypertension; K21.9 Gastro-esophageal reflux disease without esophagitis; F32.9 Major depressive disorder, single episode, unspecified; F41.9 Anxiety disorder, unspecified; Z79.899 Other long term (current) drug therapy; Z87.828 Personal history of other (healed) physical injury and trauma; Z82.49 Family history of ischemic heart disease and other diseases of the circulatory system; Z83.3 Family history of diabetes mellitus; Z83.6 Family history of other diseases of the respiratory system; Z83.79 Family history of other diseases of the digestive system; F17.200 Nicotine dependence, unspecified, uncomplicated

== ENCOUNTER 2016-12-08 12:29 | Observation (INO) | payer OTHER ==
[~2016-12-08] VITALS: Ht 172.7 cm; Wt 118.6 kg
[~2016-12-08 12:29] MED LIST changes: +CARI350T28 PO; +FLUO40CA8 PO; +FLUT0.15 NAE; +GABA400C PO; -HYDR-5688 PO; +HYDR12.56 PO; +LISI-725 PO; +NORT75CA PO; +OMEP40CA41 PO; +OXYC1TAB3 PO; +SUCR1TAB29 PO; +VNTHFA/IN INH
--- NOTE | 2016-12-08 13:24 | EMERGENCY ROOM VISIT NOTE ---
History First contact with patient: 13:04 Chief Complaint: ABDOMINAL PAIN Stated Complaint: UNCONTROLLED PAIN X8 DAYS, DR MCLAUGHLIN SENT OVER History of Present Illness The patient is a 36 year old male who presents to the Emergency Room with complaints of days. Patient describes sharp, stabbing. He is. That makes it worse. He also. Patient has been seen in the emergency department 4 times already for this being he has had a CT scan and blood work and ultrasound. The patient saw his primary care physician today. She referred the patient to emergency department for uncontrolled pain. Patient was seen in the emergency department yesterday. He was given a prescription has been taking minimal relief. Denies any fever or chills. His last bowel movement was today. No diarrhea. Review of Systems 6 system review performed and negative unless otherwise noted Past Medical/Surgical History Medical Problems: (1) Anxiety disorder (2) Back pain (3) Back pain (4) Depression (5) Depressive disorder (6) Esophageal Reflux (7) GERD (gastroesophageal reflux disease) (8) Hand crush injury (9) Herniated disc (10) HTN (hypertension) (11) Left hand pain (12) Left shoulder pain (13) Shoulder pain Surgical Problems: (1) H/O umbilical hernia repair (2) History of carpal tunnel release (3) History of carpal tunnel surgery of left wrist (4) History of herniorrhaphy (5) History of umbilical hernia repair (6) S/P carpal tunnel release Family History Diabetes mellitus MOTHER Gallbladder disease MOTHER Hypertension MOTHER Lung disease MOTHER Social History Smoking Status: Current Some Day Smoker Alcohol Use: occasionally Marital Status: Housing Status: lives with significant other Occupation Status: employed Current/Historical Medications Scheduled Carisoprodol (Soma), 350 MG PO QID Fluoxetine (Prozac), 40 MG PO DAILY Gabapentin (Neurontin), 400 MG PO QID Hydrochlorothiazide (Hctz), 12.5 MG PO DAILY Lisinopril (Zestril), 20 MG PO DAILY Nortriptyline Hcl (Pamelor), 75 MG PO HS Omeprazole (Prilosec), 40 MG PO DAILY Sucralfate (Carafate), 1 GM PO TID Scheduled PRN Albuterol Hfa (Ventolin Hfa), 2 PUFFS INH UD PRN for SOB/Wheezing Fluticasone Propionate (Nasal) (Flonase Allergy Relief), 1 SPRAY ANNY BID PRN for Allergy Symptoms Oxycodone Immediate Rel Tab (Roxicodone Ir), 1-2 TAB PO Q4H PRN for Severe Pain Allergies Coded Allergies: NSAIDs (Unverified Allergy, Unknown, upset stomach, 12/07/16) Physical Exam Vital Signs Date Time Temp Pulse Resp B/P (MAP) Pulse Ox O2 Delivery O2 Flow Rate FiO2 12/08/16 15:06 68 12/08/16 14:50 78 18 130/81 97 Room Air 12/08/16 14:04 68 20 124/74 96 Room Air 12/08/16 12:37 36.5 74 20 135/92 98 Room Air Physical Exam VITALS: Vitals are noted on the nurse's note and reviewed by myself. Vital signs stable. GENERAL: 36-year-old, in no acute distress, nondiaphoretic, well-developed well- nourished. SKIN: The skin was without rashes, erythema, edema, or bruising. HEAD: Normocephalic atraumatic. MOUTH: Mucous membranes moist. NECK: Supple without nuchal rigidity. No lymphadenopathy. Cervical spine is nontender. No JVD. HEART: Regular rate and rhythm without murmurs gallops or rubs. LUNGS: Clear to auscultation bilaterally without wheezes, rales or rhonchi. No accessory muscle use. ABDOMEN: Positive bowel sounds x 4.Soft, tenderness to palpation in the abdomen left upper quadrant epigastric and right upper quadrant. No Guarding or rebound tenderness. MUSCULOSKELETAL: No muscle atrophy, erythema, or edema noted. . Strength 5/5 throughout. NEURO: Patient was alert and oriented to person place and time. Normal sensation to touch. No focal neurological deficits. Medical Decision & Procedures Laboratory Results 12/08/16 13:50 Red Blood Count 4.71, Mean Corpuscular Volume 86.6, Mean Corpuscular Hemoglobin 32.1, Mean Corpuscular Hemoglobin Concent 37.0, Mean Platelet Volume 8.5, Neutrophils (%) (Auto) 56.8, Lymphocytes (%) (Auto) 29.7, Monocytes (%) (Auto) 7.0, Eosinophils (%) (Auto) 5.6, Basophils (%) (Auto) 0.7, Neutrophils # (Auto) 2.43, Lymphocytes # (Auto) 1.27, Monocytes # (Auto) 0.30, Eosinophils # (Auto) 0.24, Basophils # (Auto) 0.03 12/08/16 13:50 Test 12/08/16 13:50 White Blood Count 4.28 K/uL (4.8-10.8) Red Blood Count 4.71 M/uL (4.7-6.1) Hemoglobin 15.1 g/dL (14.0-18.0) Hematocrit 40.8 % (42-52) Mean Corpuscular Volume 86.6 fL (80-100) Mean Corpuscular Hemoglobin 32.1 pg (25-34) Mean Corpuscular Hemoglobin Concent 37.0 g/dl (32-36) Platelet Count 214 K/uL (130-400) Mean Platelet Volume 8.5 fL (7.4-10.4) Neutrophils (%) (Auto) 56.8 % Lymphocytes (%) (Auto) 29.7 % Monocytes (%) (Auto) 7.0 % Eosinophils (%) (Auto) 5.6 % Basophils (%) (Auto) 0.7 % Neutrophils # (Auto) 2.43 K/uL (1.4-6.5) Lymphocytes # (Auto) 1.27 K/uL (1.2-3.4) Monocytes # (Auto) 0.30 K/uL (0.11-0.59) Eosinophils # (Auto) 0.24 K/uL (0-0.5) Basophils # (Auto) 0.03 K/uL (0-0.2) RDW Standard Deviation 42.1 fL (36.4-46.3) RDW Coefficient of Variation 13.1 % (11.5-14.5) Immature Granulocyte % (Auto) 0.2 % Immature Granulocyte # (Auto) 0.01 K/uL (0.00-0.02) Urine Color YELLOW Urine Appearance CLEAR (CLEAR) Urine pH 5.0 (4.5-7.5) Urine Specific [place] 1.012 (1.000-1.030) Urine Protein NEG (NEG) Urine Glucose (UA) NEG (NEG) Urine Ketones NEG (NEG) Urine Occult Blood NEG (NEG) Urine Nitrite NEG (NEG) Urine Bilirubin NEG (NEG) Urine Urobilinogen NEG (NEG) Urine Leukocyte Esterase NEG (NEG) Anion Gap 7.0 mmol/L (3-11) Est Creatinine Clear Calc Drug Dose 146.5 ml/min Estimated GFR () 127.2 Estimated GFR (Non- 109.7 BUN/Creatinine Ratio 15.5 (10-20) Calcium Level 9.1 mg/dl (8.5-10.1) Total Bilirubin 0.6 mg/dl (0.2-1) Aspartate Amino Transf (AST/SGOT) 36 U/L (15-37) Alanine Aminotransferase (ALT/SGPT) 58 U/L (12-78) Alkaline Phosphatase 72 U/L (45-117) Total Protein 7.8 gm/dl (6.4-8.2) Albumin 4.1 gm/dl (3.4-5.0) Globulin 3.7 gm/dl (2.5-4.0) Albumin/Globulin Ratio 1.1 (0.9-2) Lipase 193 U/L (73-393) Medications Administered Medications (Trade) Dose Ordered Sig/Diego Route Start Time Stop Time Status Last Admin Dose Admin Morphine Sulfate (MoRPHine SULFATE INJ) 4 mg Q1H PRN IV 12/08/16 13:30 12/22/16 13:29 12/08/16 14:06 4 MG Ondansetron HCl (Zofran Inj) 4 mg Q2H PRN IV 12/08/16 13:30 01/07/17 13:29 12/08/16 14:06 4 MG ED Course Patient was seen and examined Vital signs including blood pressure were reviewed medications list was verified with patient Labs were obtained, and a saline lock was established The patient was treated with morphine and Zofran. Upon reevaluation, the patient was slightly more comfortable. We discussed the results of his workup. He voiced understanding. The case was discussed with not any hospitalist service who agreed to admit him for further workup and treatment. Medical Decision DIFFERENTIAL DIAGNOSIS: Gastroenteritis, Hepatitis, cholecystitis, cholangitis, biliary colic, pancreatitis, appendicitis, inguinal hernia, nephrolithiasis, inflammatory bowel disease, mesenteric adenitis, peptic ulcer disease, GERD, gastritis, pancreatitis,, bowel obstruction, splenic infarct, diverticulitis, mesenteric ischemia, metabolic, peritonitis, among others. This patient is a 36-year-old male that presented to the emergency department complaining of abdominal pain and nausea that has been ongoing for 5 days. The patient has had numerous ER visits for the same complaint. He was seen yesterday. He was sent home with oxycodone, which is not helping his pain. The patient had a CT scan and an ultrasound. There was questionable echogenicity of the pancreatic head. His lipase however is normal. The patient was reportedly scheduled for a HIDA scan of his gallbladder tomorrow. The patient saw his primary care physician in the office today who sent him here for inadequate pain control. The patient will be observed in the hospital overnight for pain control and probably a GI workup tomorrow. This chart was completed in part utilizing [employer] Speech Voice Recognition software. Attempts were made to minimize the grammatical errors, random word insertions, pronoun errors and incomplete sentences. Any formal questions or concerns about the content, text or information contained within the body of this dictation should be directly addressed to the provider for clarification. Impression Primary Impression: Abdominal pain Departure Information Referrals Candelaria Flores, C.R.N.P. (PCP) Patient Instructions [facility]
[2016-12-08] MEDS ORDERED: ONDANSETRON INJ 2 MG/ML 2 ML VIAL IV PRN ×2 (13:30→16:15)
[2016-12-08] MEDS: MoRPHine SULFATE 4 MG/ML 1 ML CARP\\VIAL IV PRN ×3 (14:06→21:28)
[2016-12-08 14:08] LABS: BASO % 0.7 %; BASO ABS # 0.03 K/uL (0-0.2); COMPLETE YES; EOS % 5.6 %; HEMATOCRIT 40.8 % (42-52); IG% 0.2 %; LYMPH % 29.7 %; LYMPH ABS # 1.27 K/uL (1.2-3.4); MEAN CELL VOLUME 86.6 fL (80-100); MEAN CORPUSCULAR HEMOGLOBIN 32.1 pg (25-34); MEAN PLATELET VOLUME 8.5 fL (7.4-10.4); NEUT % 56.8 %; PLATELET COUNT 214 K/uL (130-400); RED BLOOD COUNT 4.71 M/uL (4.7-6.1); WHITE BLOOD COUNT 4.28 K/uL (4.8-10.8)
[2016-12-08 14:23] LABS: URINE APPEARANCE CLEAR (CLEAR); URINE BILIRUBIN NEG (NEG); URINE COLOR YELLOW; URINE NITRITE NEG (NEG); URINE SPECIFIC GRAVITY 1.012 (1.000-1.030); UROBILINOGEN NEG (NEG)
[2016-12-08 14:27] LABS: BUN/CREATININE RATIO 15.5 (10-20); CALCIUM 9.1 mg/dl (8.5-10.1); CREATININE 0.88 mg/dl (0.60-1.40); POTASSIUM 3.8 mmol/L (3.5-5.1)
[2016-12-08 14:30] LABS: ALB/GLOB RATIO 1.1 (0.9-2)
[2016-12-08 14:31] LABS: MANUAL MICROSCOPIC REQUIRED? NO; REVIEW REQ? NO
[2016-12-08] MEDS ORDERED: KETOROLAC TROMETHAMINE 30 MG/ML VIAL IV ONE (16:00)
[2016-12-08] MEDS ORDERED: FLUTICASONE PROPIONATE NA SPR 16 GM BTL NAE PRN (16:15)
[2016-12-08] MEDS ORDERED: MoRPHine SULFATE 2 MG/ML CARP IV PRN (16:15)
[2016-12-08] MEDS ORDERED: MAGNESIUM HYDROXIDE SUSP 30 ML UDC PO PRN (16:15)
[2016-12-08] MEDS ORDERED: HYDROmorphone INJ 1 MG/ML SYR IV PRN (16:15)
[2016-12-08] MEDS ORDERED: ALBUTEROL HFA 8 GM INHALER INH PRN (16:15)
[2016-12-08] MEDS ORDERED: ACETAMINOPHEN 325 MG TAB PO PRN (16:15)
[2016-12-08] MEDS ORDERED: ALUMINUM/MAGNESIUM/SIMETH (MAALOX MAX) 30 ML UDC PO PRN (16:15)
[2016-12-08] MEDS ORDERED: POLYETHYLENE (MIRALAX) 17 GM PACK PO PRN (16:15)
--- NOTE | 2016-12-08 17:13 | DIAGNOSTIC IMAGING REPORT ---
GALLBLADDER-ABD LIMITED HISTORY: 36 years-old Male F/U to 12/02 - any changes with pancreas and renal stone acute right upper quadrant abdominal pain. COMPARISON: CT 12/04/2016, right upper quadrant ultrasound 12/02/2016. TECHNIQUE: Multiple real-time sonographic images of the abdominal right upper quadrant were obtained assessing grayscale appearance and color flow FINDINGS: The imaged pancreas is unremarkable. Liver measures up to 15.5 cm in length and is again mildly echogenic suspicious for fatty infiltration. No intrahepatic biliary ductal dilation. Gallbladder is unremarkable without cholelithiasis, gallbladder wall thickening or pericholecystic fluid collections. Trace gallbladder sludge noted. Common bile duct is normal, 0.5 cm. Focal area of increased echogenicity within the interpolar right kidney without posterior to 6 shadowing is again seen, 5 mm suggesting renal angiomyolipoma or renal sinus fat. No calculus was seen within this distribution on comparison CT 12/04/2016. No right-sided hydronephrosis. Study is mildly limited secondary to body habitus. IMPRESSION: 1. Trace gallbladder sludge without cholelithiasis or sonographic evidence of acute cholecystitis. 2. Normal sonographic appearance of the pancreas. 3. No biliary ductal dilation. The above report was generated using voice recognition software. It may contain grammatical, syntax or spelling errors. Electronically signed by: Yvan Ag M.D. 12/08/2016 5:12 PM Dictated Date/Time: 12/08/2016 5:07 PM
--- NOTE | 2016-12-08 17:14 | History and Physical ---
History & Physical Date & Time of Service: Dec 08, 2016 at 16:25 Chief Complaint: Uncontrolled Pain X8 Days, Dr Office Sent Over Primary Care Physician: Candelaria Flores C.R.N.P. History of Present Illness Mr. Ambrose is a 36 y/o male with PMHx of GERD, HTN, Depression, Chronic Back Pain, and Umbilical Hernia Repair x 10+ years ago who presents to the ED c/o RUQ abdominal pain x 6 days. This is the 5th ED visit over the past 6 days for this pain. He reports sudden onset of RUQ that occurred after returning home from work on 12/02. Pain remains in RUQ and extends to mid-epigastric region and wraps into the R upper back. He describes the pain as a sharp/stabbing intermittent pain. Pain can extend to a 10/10. Pain is worsened by palpation, movement, and deep inspiration. This pain is normally dull prior to eating but worsens approx. 15-20 minutes after consuming any type of food. He has found no long-lasting alleviating approaches. He reports associated diaphoresis, nausea, anorexia, and mildly loose stool. He denies any H/O GI disorders or food intolerances. No other abdominal surgeries except for an umbilical hernia repair. He reports a mother with lactulose intolerance, a grandmother with cholecystectomy, and an aunt with cholecystectomy. He reports a male relative with pancreatic cancer. Denies personal or FMHx of ulcerative disease or Crohn' s. He denies melena or hematochezia. Reports approx. 4 lbs weight loss over these past few days but no significant unintentional weight loss. He is an intermittent smoker and rarely drinks ETOH. He does not utilize chronic NSAIDs. Denies significant cardiac disease, HLD, or DVT/PEs. He has had extensive imaging including RUQ U/S and CT which was largely unremarkable except for mild prominence with decreased echogenicity of pancreatic head. There is also presence of a 0.5 mm stone in the interpolar right kidney. He was seen by his PCP who was recommending a HIDA but was unable to have this completed until Tuesday. Current pain regimen has not been helpful and is admitted for further evaluation and pain management. Past Medical/Surgical History Medical Problems: (1) Anxiety disorder Status: Chronic (2) Back pain Status: Resolved (3) Back pain Status: Resolved (4) Depression Status: Chronic (5) Depressive disorder Status: Chronic (6) Esophageal Reflux Status: Chronic (7) GERD (gastroesophageal reflux disease) Status: Chronic (8) Hand crush injury Status: Resolved (9) HTN (hypertension) Status: Chronic (10) Left hand pain Status: Resolved (11) Left shoulder pain Status: Resolved (12) Shoulder pain Status: Resolved Surgical Problems: (1) History of carpal tunnel release Status: Resolved (2) History of herniorrhaphy Status: Resolved (3) History of umbilical hernia repair Status: Resolved (4) S/P carpal tunnel release Status: Resolved Family History Diabetes mellitus MOTHER Gallbladder disease MOTHER Hypertension MOTHER Lung disease MOTHER Social History Smoking Status: Current Some Day Smoker Marital Status: Housing status: lives with family Occupational Status: employed Allergies Coded Allergies: NSAIDs (Unverified Allergy, Unknown, upset stomach, 12/07/16) Home Medications Scheduled Carisoprodol (Soma), 350 MG PO QID Fluoxetine (Prozac), 40 MG PO DAILY Gabapentin (Neurontin), 400 MG PO QID Hydrochlorothiazide (Hctz), 12.5 MG PO DAILY Lisinopril (Zestril), 20 MG PO DAILY Nortriptyline Hcl (Pamelor), 75 MG PO HS Omeprazole (Prilosec), 40 MG PO DAILY Sucralfate (Carafate), 1 GM PO TID Scheduled PRN Albuterol Hfa (Ventolin Hfa), 2 PUFFS INH UD PRN for SOB/Wheezing Fluticasone Propionate (Nasal) (Flonase Allergy Relief), 1 SPRAY ANNY BID PRN for Allergy Symptoms Oxycodone Immediate Rel Tab (Roxicodone Ir), 1-2 TAB PO Q4H PRN for Severe Pain Review of Systems Constitutional: + sweats, No fever, No chills ENT: No nasal symptoms, No sore throat, No trouble swallowing Respiratory: No cough, No shortness of breath Cardiovascular: No chest pain Abdomen: + pain (RUQ), + nausea, No vomiting, No diarrhea, No constipation, No GI bleeding Musculoskeletal: No swelling, No calf pain Genitourinary - Male: No dysuria Psychiatric: No substance abuse Hematologic / Lymphatic: No abnormal bleeding/bruising Integumentary: No rash Physical Exam Vital Signs Date Time Temp Pulse Resp B/P (MAP) Pulse Ox O2 Delivery O2 Flow Rate FiO2 12/08/16 16:09 73 18 98/67 97 Room Air 12/08/16 15:06 68 12/08/16 14:50 78 18 130/81 97 Room Air 12/08/16 14:04 68 20 124/74 96 Room Air 12/08/16 12:37 36.5 74 20 135/92 98 Room Air General Appearance: WD/WN, no apparent distress Head: normocephalic, atraumatic Eyes: sclerae normal ENT: hearing grossly normal Neck: supple, no JVD, trachea midline Respiratory/Chest: lungs clear, normal breath sounds, no respiratory distress, no accessory muscle use Cardiovascular: regular rate, rhythm, no gallop, no murmur Abdomen/GI: normal bowel sounds, soft, + tenderness (RUQ; guarding but no acute abdomen) Back: no CVA tenderness Extremities/Musculoskelatal: no calf tenderness, no pedal edema Neurologic/Psych: alert, oriented x 3 Skin: normal color, warm/dry Diagnostics Laboratory Results Results Past 24 Hours Test 12/08/16 13:50 Range/Units White Blood Count 4.28 4.8-10.8 K/uL Red Blood Count 4.71 4.7-6.1 M/uL Hemoglobin 15.1 14.0-18.0 g/dL Hematocrit 40.8 42-52 % Mean Corpuscular Volume 86.6 80-100 fL Mean Corpuscular Hemoglobin 32.1 25-34 pg Mean Corpuscular Hemoglobin Concent 37.0 32-36 g/dl Platelet Count 214 130-400 K/uL Mean Platelet Volume 8.5 7.4-10.4 fL Neutrophils (%) (Auto) 56.8 % Lymphocytes (%) (Auto) 29.7 % Monocytes (%) (Auto) 7.0 % Eosinophils (%) (Auto) 5.6 % Basophils (%) (Auto) 0.7 % Neutrophils # (Auto) 2.43 1.4-6.5 K/uL Lymphocytes # (Auto) 1.27 1.2-3.4 K/uL Monocytes # (Auto) 0.30 0.11-0.59 K/uL Eosinophils # (Auto) 0.24 0-0.5 K/uL Basophils # (Auto) 0.03 0-0.2 K/uL RDW Standard Deviation 42.1 36.4-46.3 fL RDW Coefficient of Variation 13.1 11.5-14.5 % Immature Granulocyte % (Auto) 0.2 % Immature Granulocyte # (Auto) 0.01 0.00-0.02 K/uL Urine Color YELLOW Urine Appearance CLEAR CLEAR Urine pH 5.0 4.5-7.5 Urine Specific [place] 1.012 1.000-1.030 Urine Protein NEG NEG Urine Glucose (UA) NEG NEG Urine Ketones NEG NEG Urine Occult Blood NEG NEG Urine Nitrite NEG NEG Urine Bilirubin NEG NEG Urine Urobilinogen NEG NEG Urine Leukocyte Esterase NEG NEG Sodium Level 135 136-145 mmol/L Potassium Level 3.8 3.5-5.1 mmol/L Chloride Level 102 98-107 mmol/L Carbon Dioxide Level 26 21-32 mmol/L Anion Gap 7.0 3-11 mmol/L Blood Urea Nitrogen 14 7-18 mg/dl Creatinine 0.88 0.60-1.40 mg/dl Est Creatinine Clear Calc Drug Dose 146.5 ml/min Estimated GFR () 127.2 Estimated GFR (Non- 109.7 BUN/Creatinine Ratio 15.5 10-20 Random Glucose 92 70-99 mg/dl Calcium Level 9.1 8.5-10.1 mg/dl Total Bilirubin 0.6 0.2-1 mg/dl Aspartate Amino Transf (AST/SGOT) 36 15-37 U/L Alanine Aminotransferase (ALT/SGPT) 58 12-78 U/L Alkaline Phosphatase 72 45-117 U/L Total Protein 7.8 6.4-8.2 gm/dl Albumin 4.1 3.4-5.0 gm/dl Globulin 3.7 2.5-4.0 gm/dl Albumin/Globulin Ratio 1.1 0.9-2 Lipase 193 73-393 U/L Impression Assessment and Plan Mr. Ambrose is a 36 y/o male with PMHx of GERD, HTN, Depression, Chronic Back Pain, and Umbilical Hernia Repair x 10+ years ago who presents to the ED c/o RUQ abdominal pain x 6 days. This is the 5th ED visit over the past 6 days for this pain. RUQ Abdominal Pain: - Will repeat abdominal U/S - re-evaluate pancreatic head finding and kidney stone - May likely be a malfunctioning GB - no leukocytosis or fevers, no imaging findings suggesting cholecystitis - Place NPO and midnight for HIDA scan -- No food/drink or morphine x 6 hours - Consideration for MRCP. If above findings unremarkable could consider mesenteric U/S or CTA but given age and limited risk factors would be low suspiciion for mesenteric ischemia - Toradol 30 mg IV Q6H PRN (can use prior to HIDA); Morphine 2-4 mg IV PRN; Dilaudid for severe pain - Maalox PRN and Carafate 1 g TID - If U/S does not reveal changes in renal stone - will consult GI for further recommendations HTN: - HCTZ 12.5 mg daily and Lisinopril 20 mg daily Depression: - Prozac 40 mg daily Chronic Back Pain: - Soma 350 mg QID, Gabapentin 400 mg QID, Nortriptyline 75 mg daily DVT Prophylaxis: MAYCO/SCDs Code Status: FULL RESUSCITATION Disposition: - No home need anticipated Level of Care Med/Surg Resuscitation Status FULL RESUSCITATION VTE Prophylaxis VTE Risk Assessment Done? Y/N: Yes Risk Level: Low Given or contraindicated: T.E.D. Stockings, SCD's Social Service Consult None Apply Reviewed: Pt Seen/Exam by Me History Pt with ongoing abd pain that is no better than prior. He states he has minimal appetite and nausea at times. When he does eat, he does not have emesis. No hx of major abd pain prior to this. Chronic LBP is worse with the abd pain. Carafate, soma, oxy have been of no help. Agree with HPI/ROS as noted. General Appearance: mild distress (appears ill and in pain), obese Eye Exam: bilateral eye normal inspection, bilateral eye EOMI Respiratory: normal breath sounds, no respiratory distress Cardiovascular: normal peripheral pulses, regular rate, rhythm Gastrointestinal: soft, tenderness (with palpation, pain does not worsen or elicit Maurice's sign) Extremities: non-tender, no pedal edema Neurologic/Psychiatric: alert, oriented x 3 Skin Characteristics: normal color, warm/dry Comments Neg CVA TTP b/l Assessment/Plan Agree with plan as outlined above Abd pain, uncertain etiology Repeat GB US given question of pancreatic pathology and R sided kidney stone Repeat shows no pancreas pathology and no stones, however 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
[2016-12-08] MEDS ORDERED: IV FLUIDS COMPLETED PRN (19:00)
[2016-12-08 19:47] VITALS: BP 108/76; PULSE 66; TEMP 36.4; O2SAT 95; Ht 172.7 cm; Wt 118.6 kg
[2016-12-08] MEDS: GABAPENTIN 400 MG CAP PO SCH ×2 (20:00→20:35)
[2016-12-08] MEDS: CARISOPRODOL 350 MG TAB PO SCH ×2 (20:00→20:40)
[2016-12-08] MEDS: SUCRALFATE 1 GM TAB PO SCH (20:37)
[2016-12-08] MEDS ORDERED: NORTRIPTYLINE HCL 25 MG CAP PO SCH (21:00)
[2016-12-08 23:32] VITALS: BP 122/79; PULSE 62; TEMP 36.5; O2SAT 99
[2016-12-09 00:05] VITALS: O2SAT 95
[2016-12-09] MEDS: MoRPHine SULFATE 4 MG/ML 1 ML CARP\\VIAL IV PRN ×2 (00:42→15:27)
[2016-12-09 07:27] VITALS: BP 120/71; PULSE 60; TEMP 36.3; O2SAT 97
[2016-12-09] MEDS ORDERED: PANTOprazole SOD 40 MG TAB PO SCH (08:00)
[2016-12-09] MEDS ORDERED: FLUOXETINE HCL 20 MG CAP PO SCH (08:00)
[2016-12-09] MEDS ORDERED: HYDROCHLOROTHIAZIDE 25 MG TAB PO SCH (08:00)
[2016-12-09] MEDS ORDERED: LISINOPRIL 20 MG TAB PO SCH (08:00)
[2016-12-09] MEDS ORDERED: SINCALIDE INJ 2.4 MCG in SODIUM CHLORIDE 0.9% 100ML 100 ML IV ONE (08:30)
--- NOTE | 2016-12-09 09:55 | DIAGNOSTIC IMAGING REPORT ---
NUCLEAR HEPATOBILIARY SCAN WITH EJECTION FRACTION IMAGING CLINICAL HISTORY: Right upper quadrant abdominal pain. COMPARISON STUDY: Abdominal ultrasound dated 12/08/2016. TECHNIQUE: Dynamic images of the liver and anterior abdomen were obtained every 5 minutes for a total of 60 minutes following the IV administration of 5.3mCi of technetium 99m Choletec. 2.4 mcg of sincalide was then injected with additional images acquired every 5 minutes for 45 minutes to calculate the gallbladder ejection fraction. FINDINGS: The hepatobiliary scan shows prompt and homogeneous hepatic uptake. There is visualized activity within the intra and extrahepatic biliary tree at 10 minutes, and within the gallbladder at 10 minutes. There is normal biliary to bowel transit, with small bowel visualized by 20 minutes. On the sincalide imaging, the gallbladder ejection fraction was measured at 70%. IMPRESSION: 1. Unremarkable nuclear hepatobiliary scan. There is no scintigraphic evidence of cholecystitis. 2. The gallbladder ejection fraction measured 70% which is normal. Electronically signed by: Riley Kimble M.D. 12/09/2016 9:54 AM Dictated Date/Time: 12/09/2016 9:53 AM
[2016-12-09] MEDS ORDERED: KETOROLAC TROMETHAMINE 30 MG/ML VIAL IV PRN (10:15)
[2016-12-09] MEDS: SUCRALFATE 1 GM TAB PO SCH ×2 (10:17→13:26)
[2016-12-09] MEDS: GABAPENTIN 400 MG CAP PO SCH ×2 (10:17→13:26)
[2016-12-09] MEDS: CARISOPRODOL 350 MG TAB PO SCH ×2 (10:21→13:26)
[2016-12-09] MEDS ORDERED: KETOROLAC TROMETHAMINE 30 MG/ML VIAL IV ONE (10:30)
--- NOTE | 2016-12-09 10:59 | Discharge Instructions ---
Discharge Instructions Date of Service Dec 09, 2016. Admission Reason for Admission: Abdominal Pain Discharge Discharge Diagnosis / Problem: Musculoskeletal pain Discharge Goals Goal(s): Decrease discomfort, Improve function, Learn about illness, Diagnostic testing, Therapeutic intervention, Prevent Disease Progression Activity Recommendations Activity Limitations: resume your previous activity . Instructions / Follow-Up Instructions / Follow-Up You were admitted to [facility] due to right upper quadrant pain. Your pain is most likely related to musculoskeletal pain. Continue Soma and Oxycodone as prescribed to you. You may take Tylenol and Ibuprofen as needed for pain as directed on bottle instructions. Be sure to eat, drink plenty of water, and take your Prilosec daily while taking Ibuprofen. Do not exceed more than 4000 mg of Tylenol per day as this can be harmful to your liver. Advance activity as tolerated. You may apply heat/ice and/or topical pain relief gels for pain. Do not apply for heat/ice for more than 15 minutes at a time. Continue all other regular home medications as prescribed to you. FOLLOW-UPS: Please follow-up with your PCP within 5-7 days Please follow-up/keep all of your subspecialty appointments Current Hospital Diet Patient's current hospital diet: Regular Diet Discharge Diet Recommended Diet: Regular Diet Pending Studies Studies pending at discharge: no Medical Emergencies . Who to Call and When: Medical Emergencies: If at any time you feel your situation is an emergency, please call 911 immediately. . Non-Emergent Contact Non-Emergency issues call your: Primary Care Provider . . "Provider Documentation" section prepared by Valeri Griffin. . VTE Core Measure Inpt VTE Proph given/why not?: HIEU Schreiber's
--- NOTE | 2016-12-09 11:14 | Discharge Summary ---
Discharge Summary Date of Service Dec 09, 2016. (Valeri Griffin, HERO) Discharge Summary Admission Date: Dec 08, 2016 at 16:14 Discharge Date: Dec 09, 2016 Discharge Disposition: Home Principal Diagnosis: Musculoskeletal pain Problems/Secondary Diagnoses: depression GERD HTN chronic back pain Procedures: GALLBLADDER-ABD LIMITED HISTORY: 36 years-old Male F/U to 12/02 - any changes with pancreas and renal stone acute right upper quadrant abdominal pain. COMPARISON: CT 12/04/2016, right upper quadrant ultrasound 12/02/2016. TECHNIQUE: Multiple real-time sonographic images of the abdominal right upper quadrant were obtained assessing grayscale appearance and color flow FINDINGS: The imaged pancreas is unremarkable. Liver measures up to 15.5 cm in length and is again mildly echogenic suspicious for fatty infiltration. No intrahepatic biliary ductal dilation. Gallbladder is unremarkable without cholelithiasis, gallbladder wall thickening or pericholecystic fluid collections. Trace gallbladder sludge noted. Common bile duct is normal, 0.5 cm. Focal area of increased echogenicity within the interpolar right kidney without posterior to 6 shadowing is again seen, 5 mm suggesting renal angiomyolipoma or renal sinus fat. No calculus was seen within this distribution on comparison CT 12/04/2016. No right-sided hydronephrosis. Study is mildly limited secondary to body habitus. IMPRESSION: 1. Trace gallbladder sludge without cholelithiasis or sonographic evidence of acute cholecystitis. 2. Normal sonographic appearance of the pancreas. 3. No biliary ductal dilation. The above report was generated using voice recognition software. It may contain grammatical, syntax or spelling errors. Electronically signed by: Yvan Ag M.D. 12/08/2016 5:12 PM Dictated Date/Time: 12/08/2016 5:07 PM The status of this report is Signed. Draft = Not yet reviewed or approved by Radiologist. Signed = Reviewed and approved by Radiologist. NUCLEAR HEPATOBILIARY SCAN WITH EJECTION FRACTION IMAGING CLINICAL HISTORY: Right upper quadrant abdominal pain. COMPARISON STUDY: Abdominal ultrasound dated 12/08/2016. TECHNIQUE: Dynamic images of the liver and anterior abdomen were obtained every 5 minutes for a total of 60 minutes following the IV administration of 5.3mCi of technetium 99m Choletec. 2.4 mcg of sincalide was then injected with additional images acquired every 5 minutes for 45 minutes to calculate the gallbladder ejection fraction. FINDINGS: The hepatobiliary scan shows prompt and homogeneous hepatic uptake. There is visualized activity within the intra and extrahepatic biliary tree at 10 minutes, and within the gallbladder at 10 minutes. There is normal biliary to bowel transit, with small bowel visualized by 20 minutes. On the sincalide imaging, the gallbladder ejection fraction was measured at 70%. IMPRESSION: 1. Unremarkable nuclear hepatobiliary scan. There is no scintigraphic evidence of cholecystitis. 2. The gallbladder ejection fraction measured 70% which is normal. Electronically signed by: Riley Kimble M.D. 12/09/2016 9:54 AM Dictated Date/Time: 12/09/2016 9:53 AM The status of this report is Signed. Draft = Not yet reviewed or approved by Radiologist. Signed = Reviewed and approved by Radiologist. (Valeri Griffin, PAAshleyC) Medication Reconciliation Continued Medications: Albuterol Hfa (Ventolin Hfa) 200 Puffs/72259 Mcg Aers 2 PUFFS INH UD PRN for SOB/Wheezing, INHALER Carisoprodol (Soma) 350 Mg Tab 350 MG PO QID, TAB Fluoxetine (Prozac) 40 Mg Cap 40 MG PO DAILY, CAP Fluticasone Propionate (Nasal) (Flonase Allergy Relief) 50 Mcg/Act Spr 1 SPRAY ANNY BID PRN for Allergy Symptoms Gabapentin (Neurontin) 400 Mg Cap 400 MG PO QID, CAP Hydrochlorothiazide (Hctz) 12.5 Mg Cap 12.5 MG PO DAILY, TAB Lisinopril (Zestril) 20 Mg Tab 20 MG PO DAILY, TAB Nortriptyline Hcl (Pamelor) 75 Mg Cap 75 MG PO HS, CAP Omeprazole (Prilosec) 40 Mg Cap 40 MG PO DAILY, CAP Oxycodone Immediate Rel Tab (Roxicodone Ir) 5 Mg Tab 1-2 TAB PO Q4H PRN for Severe Pain, #24 TAB Sucralfate (Carafate) 1 Gm Tab 1 GM PO TID, TAB Referrals At Discharge Follow up Referrals: Family Practice Referral - Within 1 Week with Candelaria Flores C.R.NBereniceP. Discharge Exam Review of Systems: Constitutional: No fever, No chills, No sweats, No weakness, No fatigue Respiratory: No cough, No shortness of breath, No hemoptysis Cardiovascular: No chest pain, No edema, No palpitations Abdomen: No pain, No nausea, No vomiting, No diarrhea, No constipation, No GI bleeding Musculoskeletal: + joint pain, + muscle pain, No swelling, No calf pain Genitourinary - Male: No hematuria, No dysuria Neurologic: No weakness, No numbness/tingling Psychiatric: No depression symptoms, No anxiety Endocrine: No fatigue Hematologic / Lymphatic: No abnormal bleeding/bruising Integumentary: No rash, No itch, No new/changing skin lesions Physical Exam: General Appearance: no apparent distress, + obese Eyes: normal inspection, PERRL ENT: hearing grossly normal Neck: supple Respiratory/Chest: lungs clear, no respiratory distress, no accessory muscle use, + pertinent finding (ttp of R, lower/lateral rib region ) Cardiovascular: regular rate, rhythm Abdomen / GI: normal bowel sounds, non tender, soft Extremities: no calf tenderness, no pedal edema Neurologic/Psychiatric: alert, normal mood/affect, oriented x 3 Skin: normal color, warm/dry, no rash (Valeri Griffin, PA-C) Hospital Course Admission H&P: Mr. Ambrose is a 36 y/o male with PMHx of GERD, HTN, Depression, Chronic Back Pain, and Umbilical Hernia Repair x 10+ years ago who presents to the ED c/o RUQ abdominal pain x 6 days. This is the 5th ED visit over the past 6 days for this pain. He reports sudden onset of RUQ that occurred after returning home from work on 12/02. Pain remains in RUQ and extends to mid-epigastric region and wraps into the R upper back. He describes the pain as a sharp/stabbing intermittent pain. Pain can extend to a 10/10. Pain is worsened by palpation, movement, and deep inspiration. This pain is normally dull prior to eating but worsens approx. 15-20 minutes after consuming any type of food. He has found no long-lasting alleviating approaches. He reports associated diaphoresis, nausea, anorexia, and mildly loose stool. He denies any H/O GI disorders or food intolerances. No other abdominal surgeries except for an umbilical hernia repair. He reports a mother with lactulose intolerance, a grandmother with cholecystectomy, and an aunt with cholecystectomy. He reports a male relative with pancreatic cancer. Denies personal or FMHx of ulcerative disease or Crohn' s. He denies melena or hematochezia. Reports approx. 4 lbs weight loss over these past few days but no significant unintentional weight loss. He is an intermittent smoker and rarely drinks ETOH. He does not utilize chronic NSAIDs. Denies significant cardiac disease, HLD, or DVT/PEs. He has had extensive imaging including RUQ U/S and CT which was largely unremarkable except for mild prominence with decreased echogenicity of pancreatic head. There is also presence of a 0.5 mm stone in the interpolar right kidney. He was seen by his PCP who was recommending a HIDA but was unable to have this completed until Tuesday. Current pain regimen has not been helpful and is admitted for further evaluation and pain management. Physical Exam Vital Signs Date Time Temp Pulse Resp B/P (MAP) Pulse Ox O2 Delivery O2 Flow Rate FiO2 12/08/16 16:09 73 18 98/67 97 Room Air 12/08/16 15:06 68 12/08/16 14:50 78 18 130/81 97 Room Air 12/08/16 14:04 68 20 124/74 96 Room Air 12/08/16 12:37 36.5 74 20 135/92 98 Room Air General Appearance: WD/WN, no apparent distress Head: normocephalic, atraumatic Eyes: sclerae normal ENT: hearing grossly normal Neck: supple, no JVD, trachea midline Respiratory/Chest: lungs clear, normal breath sounds, no respiratory distress, no accessory muscle use Cardiovascular: regular rate, rhythm, no gallop, no murmur Abdomen/GI: normal bowel sounds, soft, + tenderness (RUQ; guarding but no acute abdomen) Back: no CVA tenderness Extremities/Musculoskelatal: no calf tenderness, no pedal edema Neurologic/Psych: alert, oriented x 3 Skin: normal color, warm/dry Hospital Course: Mr. Ambrose is a 36 y/o male with PMHx of GERD, HTN, Depression, Chronic Back Pain, and Umbilical Hernia Repair x 10+ years ago who presents to the ED c/o RUQ abdominal pain x 6 days. This is the 5th ED visit over the past 6 days for this pain. RUQ abdominal pain, likely related to musculoskeletal pain vs ?other etiology: - Admitted to med/surg - IV Toradol + Tylenol + IV Morphine + IV Dilaudid PRN for pain control - Repeat U/S- R sided renal angiomyolipoma -- Admitting physician discussed with Homa Palomino NP for urology- states that this should not cause pain if not ruptured -- Continue surveillance w/ PCP - HIDA scan- unremarkable - Lipase WNL - D-dimer negative on 12/02 - Abdominal CT unremarkable on 12/03 - KUB and CXR unremarkable on 12/07 - Maalox PRN and Carafate 1 g TID - Patient has tenderness to palpation of R, lateral rib region + increased pain w/ movement- likely musculoskeletal -- Continue prescribed Soma and Oxycodone -- May take Tylenol + Ibuprofen PRN -- Apply heat/ice and/or topical pain relief gel PRN -- Advance activity as tolerated -- f/u w/ PCP -- GI follow-up outpatient HTN: HCTZ 12.5 mg daily and Lisinopril 20 mg daily Depression: Prozac 40 mg daily Chronic Back Pain: Soma 350 mg QID, Gabapentin 400 mg QID, Nortriptyline 75 mg daily GERD: Protonix + Carafate- resume Prilosec at discharge DVT Prophylaxis: MAYCO/SCDs Code Status: FULL RESUSCITATION Disposition: Discharge to home Total Time Spent: Greater than 30 minutes This includes examination of the patient, discharge planning, medication reconciliation, and communication with other providers. (Valeri Griffin ., PA-C) PA Physician Supervision Note: I interviewed and examined the patient. Discussed with Valeri VIDAL and agree with findings and plan as documented in the note. Any exceptions or clarifications are listed here: None Patient was seen and apparently did have some postprandial abdominal pain related to the right quadrant, he however had a normal HIDA scan and laboratories. A GI cocktail was also attempted without much relief. The patient does have Prilosec and Carafate at home. Vital signs are stable side abdomen exam shows mild tenderness in epigastrium upper quadrant There is no acute need to keep patient hospital is encouraged a low-fat diet he requested a work excuse he will have an arrange follow-up with [facility] GI medicine for further testing of his abdominal pain understanding that it appears in acute Leanna cystitis or choledocholithiasis has been ruled out Documented By: Ariel Rose (Ariel Rose M.D.) Discharge Instructions Please refer to the electronic Patient Visit Report (Discharge Instructions) for additional information. (Valeri Griffin, PA-C) Follow-Up Please follow-up with your PCP within 5-7 days Follow-up with GI as scheduled Please follow-up/keep all of your subspecialty appointments (Valeri Griffin, PA-C) Additional Copies To Candelaria Flores C.R.N.P.
[2016-12-09] MEDS ORDERED: OXYCODONE HCL IR 5 MG TAB (IMMEDIATE RELEASE) PO ONE (13:15)
[2016-12-09] MEDS ORDERED: GI COCKTAIL PO ONE (14:00)
[2016-12-09] MEDS ORDERED: ALUMINUM/MAGNESIUM SUSP 18 ML, LIDOCAINE HCL 2% VISCOUS SOLN 6 ML, BARCODE IDENTIFIER 1 EA PO SCH ×2 (14:30)
[2016-12-09 15:00] VITALS: BP 135/77; PULSE 74; TEMP 36.6; O2SAT 97
[2016-12-09 15:32] VITALS: BP 135/77; PULSE 74; TEMP 36.6; O2SAT 97
== END 2016-12-09 15:50 | disposition home or self-care (01) ==
LOC: C.EDB 12:30 → C.MS4W 16:14 → ENRESERV 17:04
PROVIDERS: ADMIT Family Medicine; ATTEND Family Medicine
DX: R10.11 Right upper quadrant pain (principal); I10 Essential (primary) hypertension; K21.9 Gastro-esophageal reflux disease without esophagitis; G89.29 Other chronic pain; M54.9 Dorsalgia, unspecified; F32.9 Major depressive disorder, single episode, unspecified; F41.9 Anxiety disorder, unspecified; F17.200 Nicotine dependence, unspecified, uncomplicated; Z83.3 Family history of diabetes mellitus; Z83.6 Family history of other diseases of the respiratory system; Z79.899 Other long term (current) drug therapy

== ENCOUNTER 2016-12-14 18:09 | Emergency (ER) | payer OTHER ==
[~2016-12-14] VITALS: Ht 172.7 cm; Wt 121.0 kg
[2016-12-14 18:16] VITALS: TEMP 36.7; Ht 172.7 cm; Wt 121.0 kg
[2016-12-14] MEDS ORDERED: MoRPHine SULFATE 10 MG/ML CARP/VIAL IV STA (18:27)
[2016-12-14] MEDS ORDERED: GI COCKTAIL PO STA (18:38)
[2016-12-14] MEDS ORDERED: METOCLOPRAMIDE HCL INJ 5 MG/ML 2 ML VIAL IV STA (18:38)
[2016-12-14] MEDS ORDERED: ONDANSETRON INJ 2 MG/ML 2 ML VIAL IV STA (18:44)
[2016-12-14] MEDS ORDERED: FAMOTIDINE 20 MG TAB PO ONE (18:45)
--- NOTE | 2016-12-14 18:53 | EMERGENCY ROOM VISIT NOTE ---
ED Visit Note First contact with patient: 18:17 The patient was seen and examined with Dr. Lawton. I agree with the history , physical and findings. Please see the note for disposition and details.
[2016-12-14] MEDS ORDERED: LIDOCAINE HCL 2% VISC SOLN 20 ML UDC ONE (19:03)
[2016-12-14] MEDS ORDERED: ALUMINUM/MAGNESIUM SUSP 30 ML UDC ONE (19:03)
--- NOTE | 2016-12-14 19:05 | EMERGENCY ROOM VISIT NOTE ---
History First contact with patient: 18:22 (Nu Lawton M.D.) First contact with patient: 18:17 (Enrique Krueger M.D.) Chief Complaint: ABDOMINAL PAIN Stated Complaint: SEVERE RUQ PAIN,DIARRHEA, SAW DR RODRIGUEZ History of Present Illness The patient is a 36 year old male with a past medical history of GERD, HTN, Depression, Chronic Back Pain, and Umbilical Hernia Repair x 10+ years ago who presents to the Emergency Room with complaints of RUQ pain. He states the pain is 10/10 in severity, comes and goes in waves, but that he is constantly in pain. He states it is worse when he leans over, but is not alleviated by any position. He has been to the emergency department 5 times since Dec 01 due to the pain and has had multiple investigations done for his pain, with no results found. He states the only change since his last visit is that he now has diarrhea that began yesterday. He states he has been having diarrhea approximately 3 times an hour, but denies the presence of blood. He denies urinary symptoms, and states that his urine is not darker than usual. He denies chest pain, shortness of breath, fever, chills, nausea, vomiting, pruritus, rash , recent travel or trauma. He saw Dr. Doty today in office who did preliminary bloodwork. He states his mother had gallbladder disease and he is concerned he does as well. (Nu Lawton M.D.) Review of Systems See HPI for pertinent positives & negatives. A total of 10 systems reviewed and were otherwise negative. (Nu Lawton M.D.) Past Medical/Surgical History Medical Problems: (1) Anxiety disorder (2) Back pain (3) Back pain (4) Depression (5) Depressive disorder (6) Esophageal Reflux (7) GERD (gastroesophageal reflux disease) (8) Hand crush injury (9) Herniated disc (10) HTN (hypertension) (11) Left hand pain (12) Left shoulder pain (13) Musculoskeletal pain (14) Shoulder pain Surgical Problems: (1) H/O umbilical hernia repair (2) History of carpal tunnel release (3) History of carpal tunnel surgery of left wrist (4) History of herniorrhaphy (5) History of umbilical hernia repair (6) S/P carpal tunnel release (Enrique Krueger M.D.) Family History Diabetes mellitus MOTHER Gallbladder disease MOTHER Hypertension MOTHER Lung disease MOTHER (Nu Lawton M.D.) Diabetes mellitus MOTHER Gallbladder disease MOTHER Hypertension MOTHER Lung disease MOTHER (Enrique Krueger M.D.) Social History Smoking Status: Never Smoker Alcohol Use: occasionally Marital Status: Housing Status: lives with significant other Occupation Status: employed (Nu Lawton M.D.) Current/Historical Medications Scheduled Carisoprodol (Soma), 350 MG PO QID Fluoxetine (Prozac), 40 MG PO DAILY Gabapentin (Neurontin), 400 MG PO QID Hydrochlorothiazide (Hctz), 12.5 MG PO DAILY Lisinopril (Zestril), 20 MG PO DAILY Nortriptyline Hcl (Pamelor), 75 MG PO HS Omeprazole (Prilosec), 40 MG PO DAILY Ondasetron Odt (Zofran Odt), 4 MG SL Q6H Sucralfate (Carafate), 1 GM PO TID Scheduled PRN Albuterol Hfa (Ventolin Hfa), 2 PUFFS INH UD PRN for SOB/Wheezing Fluticasone Propionate (Nasal) (Flonase Allergy Relief), 1 SPRAY ANNY BID PRN for Allergy Symptoms Physical Exam Vital Signs Date Time Temp Pulse Resp B/P (MAP) Pulse Ox O2 Delivery O2 Flow Rate FiO2 12/14/16 21:40 77 23 130/69 97 12/14/16 20:12 76 19 114/67 96 Room Air 12/14/16 19:10 78 12/14/16 19:09 78 19 115/75 98 Room Air 12/14/16 18:16 36.7 95 20 138/83 98 Room Air (Enrique Krueger M.D.) Physical Exam General: Patient looks distressed, is clutching his right upper quadrant, and intermittently tearful. HEENT: Head - normocephalic and atraumatic. Pupils are equal, round, and reactive to light. Extraocular eye muscles are intact and sclera are anicteric. Ears - bilaterally patent canals with noninjected tympanic membranes and no evidence of hemotympanum. Nose - moist nasal mucosa without discharge. Mouth - moist buccal mucosa. Oropharynx is nonerythematous and there is no tonsillar exudate or edema noted. Neck: Supple; no JVD, nuchal rigidity, cervical lymphadenopathy, or auscultated bruits. Heart: Regular rate and rhythm. There is a normal S1 and S2 with no murmurs, clicks, or gallops appreciated. Lungs: Clear to auscultation bilaterally with no wheezes, rales, or rhonchi. Abdomen: Soft, tender over RUQ, as well as over lower ribcage on his right side. Maurice's sign negative. Positive rebound tenderness over RUQ. Abdomen nondistended, with good bowel sounds. There are no palpable pulsatile masses or hepatosplenomegaly. There is no guarding or rigidity noted. Extremities: No evidence of cyanosis, clubbing, or edema. There are easily palpable peripheral pulses. Neuro:The patient is awake and alert, oriented to day, time, and place. Muscle strength is 5/5 in all 4 extremities. The patient has equal refractory technician strength and equal pedal push and pull. There are no cerebellar signs. (Nu Lawton M.D.) Medical Decision & Procedures ER Provider Diagnostic Interpretation: CHEST ONE VIEW PORTABLE HISTORY: 36 years-old Male R sided lower costal pain acute right-sided chest pain COMPARISON: Chest radiograph 12/07/2016 TECHNIQUE: Portable upright AP view of the chest FINDINGS: Cardiomediastinal and hilar silhouettes are within normal limits. Minimal linear subsegmental atelectasis of the left lung base. No pneumothorax, pleural effusion, focal airspace consolidation or overt pulmonary edema. Bones of the chest are grossly intact. IMPRESSION: No acute cardiopulmonary process. GALLBLADDER-ABD LIMITED HISTORY: 36 years-old Male RUQ colicky pain, rule out gallstone acute right upper quadrant abdominal pain. COMPARISON: Right upper quadrant ultrasound 12/08/2016, CT 12/04/2016. TECHNIQUE: Multiple real-time sonographic images of the abdominal right upper quadrant were obtained assessing grayscale appearance and color flow FINDINGS: Imaged pancreas is unremarkable. Distal body and tail of the pancreas are obscured by bowel gas. Liver measures up to 18.0 cm in length. No focal hepatic mass lesions or intrahepatic biliary ductal dilation identified. The hepatic parenchyma is mildly echogenic, suspicious for fatty infiltration. Gallbladder is unremarkable without wall thickening or pericholecystic fluid collections. No shadowing cholelithiasis. Common bile duct measures 0.4 cm, within normal limits. Right kidney measures up to 11.1 cm in length. 0.7 cm echogenic focus of the interpolar right kidney is noted suggesting possible angiomyolipoma as no calculus was seen within this region on comparison CT studies. IMPRESSION: 1. No cholelithiasis or sonographic evidence of acute cholecystitis. 2. No biliary ductal dilation. (Nu Lawton M.D.) Laboratory Results 12/14/16 18:55 Red Blood Count 4.69, Mean Corpuscular Volume 85.3, Mean Corpuscular Hemoglobin 30.9, Mean Corpuscular Hemoglobin Concent 36.3, Mean Platelet Volume 8.6, Neutrophils (%) (Auto) 61.7, Lymphocytes (%) (Auto) 27.4, Monocytes (%) (Auto) 5.8, Eosinophils (%) (Auto) 3.8, Basophils (%) (Auto) 0.9, Neutrophils # (Auto) 3.40, Lymphocytes # (Auto) 1.51, Monocytes # (Auto) 0.32, Eosinophils # (Auto) 0.21, Basophils # (Auto) 0.05 12/14/16 18:55 Test 12/14/16 18:55 White Blood Count 5.51 K/uL (4.8-10.8) Red Blood Count 4.69 M/uL (4.7-6.1) Hemoglobin 14.5 g/dL (14.0-18.0) Hematocrit 40.0 % (42-52) Mean Corpuscular Volume 85.3 fL (80-100) Mean Corpuscular Hemoglobin 30.9 pg (25-34) Mean Corpuscular Hemoglobin Concent 36.3 g/dl (32-36) Platelet Count 243 K/uL (130-400) Mean Platelet Volume 8.6 fL (7.4-10.4) Neutrophils (%) (Auto) 61.7 % Lymphocytes (%) (Auto) 27.4 % Monocytes (%) (Auto) 5.8 % Eosinophils (%) (Auto) 3.8 % Basophils (%) (Auto) 0.9 % Neutrophils # (Auto) 3.40 K/uL (1.4-6.5) Lymphocytes # (Auto) 1.51 K/uL (1.2-3.4) Monocytes # (Auto) 0.32 K/uL (0.11-0.59) Eosinophils # (Auto) 0.21 K/uL (0-0.5) Basophils # (Auto) 0.05 K/uL (0-0.2) RDW Standard Deviation 40.8 fL (36.4-46.3) RDW Coefficient of Variation 13.1 % (11.5-14.5) Immature Granulocyte % (Auto) 0.4 % Immature Granulocyte # (Auto) 0.02 K/uL (0.00-0.02) Anion Gap 10.0 mmol/L (3-11) Est Creatinine Clear Calc Drug Dose 137.6 ml/min Estimated GFR () 121.1 Estimated GFR (Non- 104.5 BUN/Creatinine Ratio 10.8 (10-20) Calcium Level 9.2 mg/dl (8.5-10.1) Phosphorus Level 2.8 mg/dl (2.5-4.9) Magnesium Level 2.1 mg/dl (1.8-2.4) Total Bilirubin 0.6 mg/dl (0.2-1) Direct Bilirubin 0.1 mg/dl (0-0.2) Aspartate Amino Transf (AST/SGOT) 33 U/L (15-37) Alanine Aminotransferase (ALT/SGPT) 55 U/L (12-78) Alkaline Phosphatase 74 U/L (45-117) Total Protein 8.0 gm/dl (6.4-8.2) Albumin 4.3 gm/dl (3.4-5.0) Lipase 217 U/L (73-393) Chemistry Specimen Hemolysis (Enrique Krueger M.D.) Medications Administered Medications (Trade) Dose Ordered Sig/Diego Route Start Time Stop Time Status Last Admin Dose Admin Morphine Sulfate (MoRPHine SULFATE INJ) 8 mg NOW STAT IV 12/14/16 18:27 12/14/16 18:30 DC 12/14/16 19:08 8 MG Famotidine (Pepcid Tab) 20 mg NOW ONCE PO 12/14/16 18:45 12/14/16 18:46 DC 12/14/16 19:08 20 MG Ondansetron HCl (Zofran Inj) 4 mg NOW STAT IV 12/14/16 18:44 12/14/16 18:45 DC 12/14/16 19:08 4 MG Lidocaine HCl (Viscous Lidocaine 2% Soln) 20 ml STK-MED ONCE .ROUTE 12/14/16 19:03 12/14/16 19:04 DC 12/14/16 19:08 20 ML Al Hydroxide/Mg Hydroxide (Maalox Susp) 30 ml STK-MED ONCE .ROUTE 12/14/16 19:03 12/14/16 19:04 DC 12/14/16 19:08 30 ML Tramadol HCl (Ultram Home Pack) 1 homepack UD ONCE PO 12/14/16 20:45 12/14/16 20:53 DC 12/14/16 21:35 1 HOMEPACK (Enrique Krueger M.D.) ECG Indication: abdominal pain Rate (beats per minute): 84 Rhythm: normal sinus Findings: no acute ischemic change, no ectopy Change: no significant change (Nu Lawton M.D.) Indication: chest pain Rate (beats per minute): 84 Rhythm: sinus rhythm Findings: other (normal axis, no STS or TWI, no ectopy) (Enrique Krueger M.D.) ED Course 18:22: The patient was seen in room C1. A complete history and physical examination were performed. 18:27: 8mg of IV morphine was ordered for pain relief 18:35: The case was discussed with the attending, Dr. Krueger 18:40: The patient was seen with Dr. Krueger 19:37: The patient was reassessed, he reports the pain is still there but far less than before and that he is more comfortable now. 20:25: Patient reassessed. States he feels the pain is slowly starting to return. Abdomen is soft and nontender. He says his diarrhea has improved, and it was only present for the first half of today. He says he is seeing the GI doctor on Dec.22. He was informed of his negative blood work and ultrasound. 20:50: Discussed discharging patient with medication for pain control until he was able to see his GI doctor. He was agreeable to this plan. (Nu Lawton M.D.) Medical Decision The patient is a 36 year old male who presents to the Emergency Room with complaints of colicky RUQ pain since Dec 01 and diarrhea x 1 day. Differential includes choledocholithiasis, biliary colic, rib pain/ musculoskeletal, atypical WI, gastroenteritis. He has been extensively worked up in his previous 5 visits includin12/09/2016 - Negative HIDA scan 12/08/2016 - Negative Gallbladder US - showed trace gallbladder sludge but no stones or evidence of cholecystitis or biliary dilation 12/07/2016 - negative CXR and negative KUB 12/03/2016 - negative CT abdomen He was also admitted overnight from 12/08 to 12/09 and discharged with the diagnosis of musculoskeletal pain, and a follow up with his PCP and GI doctor. GI follow up is Dec 22. On exam, his pain seems out of proportion to his examination findings. He allows for superficial and deep palpation of his abdomen without guarding. His blood work, chest xray, EKG and gallbladder ultrasound were all negative. Given that there was no acute, emergent problem discovered, he can follow up with GI on Dec 22 and we will optimize his pain management with tramadol until then. (Nu Lawton M.D.) Impression Primary Impression: Abdominal pain Departure Information Dispostion Home / Self-Care Prescriptions Ondasetron Odt (ZOFRAN ODT) 4 Mg Tab 4 MG SL Q6H for Nausea, #6 TAB Prov: Nu Lawton M.D. 12/14/16 Referrals Candelaria Flores C.R.N.PBerenice (PCP) Patient Instructions My [facility] Additional Instructions You came to [facility] emergency department due to severe right upper quadrant pain. We checked an EKG, chest x-ray, ultrasound of your gallbladder and blood work, which all came back normal. We were unable to find an acute problem contributing to your symptoms and therefore we advise that you follow up with your GI doctor on December 22. We are prescribing tramadol and zofran to help with pain management and nausea until then. Tramadol: Take 50mg every 8 hours as needed for your pain. Zofran (ondansetron) tablets 4mg: Take one every 6 hours as needed for nausea. If you develop fever, chills, vomiting, or change in your urine and stool, please seek medical attention. Resident Tracking Resident Involvement: Resident Care Provided Care Provided: Adult ED (Nu Lawton M.D.)
[2016-12-14 19:08] LABS: BASO % 0.9 %; BASO ABS # 0.05 K/uL (0-0.2); COMPLETE YES; EOS % 3.8 %; IG% 0.4 %; LYMPH % 27.4 %; LYMPH ABS # 1.51 K/uL (1.2-3.4); MEAN CELL VOLUME 85.3 fL (80-100); MEAN CORPUSCULAR HEMOGLOBIN 30.9 pg (25-34); MEAN CORPUSCULAR HGB CONC 36.3 g/dl (32-36); MEAN PLATELET VOLUME 8.6 fL (7.4-10.4); MONO % 5.8 %; NEUT % 61.7 %; PLATELET COUNT 243 K/uL (130-400); RED BLOOD COUNT 4.69 M/uL (4.7-6.1); WHITE BLOOD COUNT 5.51 K/uL (4.8-10.8)
--- NOTE | 2016-12-14 19:30 | DIAGNOSTIC IMAGING REPORT ---
CHEST ONE VIEW PORTABLE HISTORY: 36 years-old Male R sided lower costal pain acute right-sided chest pain COMPARISON: Chest radiograph 12/07/2016 TECHNIQUE: Portable upright AP view of the chest FINDINGS: Cardiomediastinal and hilar silhouettes are within normal limits. Minimal linear subsegmental atelectasis of the left lung base. No pneumothorax, pleural effusion, focal airspace consolidation or overt pulmonary edema. Bones of the chest are grossly intact. IMPRESSION: No acute cardiopulmonary process. The above report was generated using voice recognition software. It may contain grammatical, syntax or spelling errors. Electronically signed by: Yvan Ag M.D. 12/14/2016 7:28 PM Dictated Date/Time: 12/14/2016 7:27 PM
[2016-12-14 19:38] LABS: BUN/CREATININE RATIO 10.8 (10-20); CALCIUM 9.2 mg/dl (8.5-10.1); CREATININE 0.93 mg/dl (0.60-1.40); MAGNESIUM 2.1 mg/dl (1.8-2.4); PHOSPHORUS 2.8 mg/dl (2.5-4.9); POTASSIUM 3.9 mmol/L (3.5-5.1)
--- NOTE | 2016-12-14 20:18 | DIAGNOSTIC IMAGING REPORT ---
GALLBLADDER-ABD LIMITED HISTORY: 36 years-old Male RUQ colicky pain, rule out gallstone acute right upper quadrant abdominal pain. COMPARISON: Right upper quadrant ultrasound 12/08/2016, CT 12/04/2016. TECHNIQUE: Multiple real-time sonographic images of the abdominal right upper quadrant were obtained assessing grayscale appearance and color flow FINDINGS: Imaged pancreas is unremarkable. Distal body and tail of the pancreas are obscured by bowel gas. Liver measures up to 18.0 cm in length. No focal hepatic mass lesions or intrahepatic biliary ductal dilation identified. The hepatic parenchyma is mildly echogenic, suspicious for fatty infiltration. Gallbladder is unremarkable without wall thickening or pericholecystic fluid collections. No shadowing cholelithiasis. Common bile duct measures 0.4 cm, within normal limits. Right kidney measures up to 11.1 cm in length. 0.7 cm echogenic focus of the interpolar right kidney is noted suggesting possible angiomyolipoma as no calculus was seen within this region on comparison CT studies. IMPRESSION: 1. No cholelithiasis or sonographic evidence of acute cholecystitis. 2. No biliary ductal dilation. The above report was generated using voice recognition software. It may contain grammatical, syntax or spelling errors. Electronically signed by: Yvan Ag M.D. 12/14/2016 8:16 PM Dictated Date/Time: 12/14/2016 8:12 PM
[2016-12-14] MEDS ORDERED: ONDA4TAB10 SL (20:40)
[2016-12-14] MEDS ORDERED: TRAMADOL HCL 50 MG HOME PACK PO ONE (20:45)
[2016-12-14 21:40] VITALS: BP 130/69; PULSE 77; O2SAT 97
== END 2016-12-14 21:40 | disposition home or self-care (01) ==
LOC: C.EDB 18:10 → C.EDC 21:40
DX: R10.11 Right upper quadrant pain (principal); I10 Essential (primary) hypertension; K21.9 Gastro-esophageal reflux disease without esophagitis; F41.9 Anxiety disorder, unspecified; F32.9 Major depressive disorder, single episode, unspecified; Z87.828 Personal history of other (healed) physical injury and trauma; Z98.890 Other specified postprocedural states; Z79.899 Other long term (current) drug therapy; Z83.3 Family history of diabetes mellitus; Z83.79 Family history of other diseases of the digestive system; Z82.49 Family history of ischemic heart disease and other diseases of the circulatory system

== ENCOUNTER → 2016-12-29 | Outpatient (CLI) | payer OTHER ==
[~2016-12-29] MED LIST changes: +ONDA4TAB10 SL; -OXYC1TAB3 PO
--- NOTE | 2016-12-29 09:54 | DIAGNOSTIC IMAGING REPORT ---
DOPPLER ULTRASOUND OF THE MESENTERIC VESSELS CLINICAL HISTORY: Right upper quadrant abdominal pain. COMPARISON STUDY: CT of the abdomen and pelvis December 04, 2016. FINDINGS: Peak systolic velocity within the abdominal aorta was 102 cm/s. The peak systolic velocity within the celiac axis was 120 cm/s. The peak systolic velocity within the superior mesenteric artery was 192 cm/s. The peak systolic velocity within the inferior mesenteric artery was 111 cm/s. IMPRESSION: No evidence of a hemodynamically significant stenosis within the mesenteric vessels. Electronically signed by: Omar Mayen M.D. 12/29/2016 9:53 AM Dictated Date/Time: 12/29/2016 9:37 AM
== END | disposition home or self-care (01) ==
LOC: C.ULTR 08:52
PROVIDERS: ATTEND Nurse Practitioner Family
DX: R10.11 Right upper quadrant pain (principal)

== ENCOUNTER → 2017-01-04 | Outpatient (CLI) | payer OTHER | END | disposition home or self-care (01) | LOC: C.RDSM 15:51 | PROVIDERS: ATTEND Family Medicine | DX: M54.6 Pain in thoracic spine (principal); R19.5 Other fecal abnormalities ==

== ENCOUNTER 2017-01-22 05:23 | Emergency (ER) | payer OTHER ==
[~2017-01-22] VITALS: Ht 172.7 cm; Wt 118.0 kg
[2017-01-22 05:25] VITALS: TEMP 36.5; Ht 172.7 cm; Wt 118.0 kg
[2017-01-22] MEDS ORDERED: METOCLOPRAMIDE HCL INJ 5 MG/ML 2 ML VIAL IV STA (05:36)
[2017-01-22] MEDS ORDERED: KETOROLAC TROMETHAMINE 30 MG/ML VIAL IV STA (05:36)
[2017-01-22] MEDS ORDERED: DiphenhydrAMINE HCL 50 MG/ML VIAL IV STA (05:36)
[2017-01-22] MEDS ORDERED: DICYCLOMINE HCL 10 MG/ML 2 ML AMP IM ONE (05:45)
[2017-01-22 06:11] VITALS: O2SAT 97
[2017-01-22 06:13] LABS: URINE APPEARANCE CLEAR (CLEAR); URINE BILIRUBIN NEG (NEG); URINE COLOR YELLOW; URINE NITRITE NEG (NEG); URINE SPECIFIC GRAVITY 1.031 (1.000-1.030); UROBILINOGEN NEG (NEG); ZZUR CULT IF INDIC CLEAN CATCH NO
[2017-01-22 06:15] LABS: BASO % 0.7 %; BASO ABS # 0.03 K/uL (0-0.2); COMPLETE YES; EOS % 4.4 %; HEMATOCRIT 40.7 % (42-52); IG% 0.2 %; LYMPH % 22.2 %; LYMPH ABS # 0.96 K/uL (1.2-3.4); MEAN CELL VOLUME 87.5 fL (80-100); MEAN CORPUSCULAR HEMOGLOBIN 31.4 pg (25-34); MEAN CORPUSCULAR HGB CONC 35.9 g/dl (32-36); MONO % 7.9 %; NEUT % 64.6 %; PLATELET COUNT 228 K/uL (130-400); RED BLOOD COUNT 4.65 M/uL (4.7-6.1); WHITE BLOOD COUNT 4.33 K/uL (4.8-10.8)
[2017-01-22 06:23] LABS: MANUAL MICROSCOPIC REQUIRED? NO; REVIEW REQ? NO
[2017-01-22 06:24] LABS: ALT/SGPT 43 U/L (12-78); AST/SGOT 26 U/L (15-37); BLOOD UREA NITROGEN 15 mg/dl (7-18); BUN/CREATININE RATIO 18.9 (10-20); CALCIUM 8.8 mg/dl (8.5-10.1); CARBON DIOXIDE 24 mmol/L (21-32); CHLORIDE 106 mmol/L (98-107); CREATININE 0.77 mg/dl (0.60-1.40); GLUCOSE 111 mg/dl (70-99); POTASSIUM 3.9 mmol/L (3.5-5.1); SODIUM 136 mmol/L (136-145)
[2017-01-22 06:26] LABS: ALKALINE PHOSPHATASE 66 U/L (45-117)
--- NOTE | 2017-01-22 06:40 | EMERGENCY ROOM VISIT NOTE ---
History First contact with patient: 05:36 Chief Complaint: ABDOMINAL PAIN Stated Complaint: RUQ PAIN,N/V DIARRHEA History of Present Illness The patient is a 36 year old male who presents to the Emergency Room with complaints of ongoing intermittent right upper quadrant abdominal pain for the past several months who has had an extensive workup to include EGD, HIDA, ultrasound, CT scan which were all unremarkabl. He has an appointment this week for an MRI of his back and a colonoscopy by Dr. Contreras. Patient with nausea, vomiting and diarrhea. No recent antibiotics. No well water. Pain currently 8 out of 10. Nothing makes it better or worse. It does not radiate. Patient has chest pain, dyspnea, fever, chills, cough, congestion, back pain, urinary symptoms. Patient is requesting a work note. Review of Systems See HPI for pertinent positives & negatives. A total of 10 systems reviewed and were otherwise negative. Past Medical/Surgical History Medical Problems: (1) Anxiety disorder (2) Back pain (3) Back pain (4) Depression (5) Depressive disorder (6) Esophageal Reflux (7) GERD (gastroesophageal reflux disease) (8) Hand crush injury (9) Herniated disc (10) HTN (hypertension) (11) Left hand pain (12) Left shoulder pain (13) Musculoskeletal pain (14) Shoulder pain Surgical Problems: (1) H/O umbilical hernia repair (2) History of carpal tunnel release (3) History of carpal tunnel surgery of left wrist (4) History of herniorrhaphy (5) History of umbilical hernia repair (6) S/P carpal tunnel release Family History Diabetes mellitus MOTHER Gallbladder disease MOTHER Hypertension MOTHER Lung disease MOTHER Social History Smoking Status: Never Smoker Alcohol Use: occasionally Marital Status: Housing Status: lives with significant other Occupation Status: employed Current/Historical Medications Scheduled Carisoprodol (Soma), 350 MG PO QID Fluoxetine (Prozac), 40 MG PO DAILY Gabapentin (Neurontin), 400 MG PO QID Hydrochlorothiazide (Hctz), 12.5 MG PO DAILY Lisinopril (Zestril), 20 MG PO DAILY Nortriptyline Hcl (Pamelor), 75 MG PO HS Omeprazole (Prilosec), 40 MG PO DAILY Ondasetron Odt (Zofran Odt), 4 MG SL Q6H Sucralfate (Carafate), 1 GM PO TID Scheduled PRN Albuterol Hfa (Ventolin Hfa), 2 PUFFS INH UD PRN for SOB/Wheezing Fluticasone Propionate (Nasal) (Flonase Allergy Relief), 1 SPRAY ANNY BID PRN for Allergy Symptoms Allergies Coded Allergies: NSAIDs (Unverified Allergy, Unknown, upset stomach, 12/14/16) Physical Exam Vital Signs Date Time Temp Pulse Resp B/P (MAP) Pulse Ox O2 Delivery O2 Flow Rate FiO2 01/22/17 06:11 97 Room Air 01/22/17 06:10 74 16 132/82 97 Room Air 01/22/17 05:25 36.5 88 18 143/87 97 Room Air Physical Exam VITALS: Vitals are noted on the nurse's note and reviewed by myself. Vital signs stable. GENERAL: White male laughing and carrying on with family, in no acute distress, nondiaphoretic, well-developed well-nourished. SKIN: The skin was without rashes, erythema, edema, or bruising. There is no tenting of the skin. Capillary reflex less than 2 seconds. HEAD: Normocephalic atraumatic. EARS: External auditory canals clear, tympanic membranes pearly phelps without erythema or effusion bilaterally. EYES: Pupils equal round and reactive to light and accommodation. Conjunctivae without injection, sclerae without icterus. Extraocular movements intact. NOSE: Patent, turbinates without inflammation or discharge. MOUTH: Mucous membranes moist. Pharynx without erythema or exudate. Uvula midline. Airway patent. Tongue does not deviate. NECK: Supple without nuchal rigidity. No lymphadenopathy. No thyromegaly. Cervical spine is nontender. No JVD. HEART: Regular rate and rhythm without murmurs gallops or rubs. LUNGS: Clear to auscultation bilaterally without wheezes, rales or rhonchi. No dullness to percussion. No retractions or accessory muscle use. ABDOMEN: Positive bowel sounds x 4. Normal tympanic percussion. Soft, protuberant, obese, minimally tender right upper quadrant, no CVA tenderness, without masses or organomegaly. Maurice sign negative. No guarding or rebound tenderness. MUSCULOSKELETAL: No muscle atrophy, erythema, or edema noted. NEURO: Patient was alert and oriented to person place and time. Normal sensation to light and sharp touch. No focal neurological deficits. Medical Decision & Procedures Laboratory Results 01/22/17 05:58 Red Blood Count 4.65, Mean Corpuscular Volume 87.5, Mean Corpuscular Hemoglobin 31.4, Mean Corpuscular Hemoglobin Concent 35.9, Mean Platelet Volume 9.0, Neutrophils (%) (Auto) 64.6, Lymphocytes (%) (Auto) 22.2, Monocytes (%) (Auto) 7.9, Eosinophils (%) (Auto) 4.4, Basophils (%) (Auto) 0.7, Neutrophils # (Auto) 2.80, Lymphocytes # (Auto) 0.96, Monocytes # (Auto) 0.34, Eosinophils # (Auto) 0.19, Basophils # (Auto) 0.03 01/22/17 05:58 Test 01/22/17 05:49 01/22/17 05:58 Urine Color YELLOW Urine Appearance CLEAR (CLEAR) Urine pH 5.0 (4.5-7.5) Urine Specific [place] 1.031 (1.000-1.030) Urine Protein NEG (NEG) Urine Glucose (UA) NEG (NEG) Urine Ketones TRACE (NEG) Urine Occult Blood NEG (NEG) Urine Nitrite NEG (NEG) Urine Bilirubin NEG (NEG) Urine Urobilinogen NEG (NEG) Urine Leukocyte Esterase NEG (NEG) White Blood Count 4.33 K/uL (4.8-10.8) Red Blood Count 4.65 M/uL (4.7-6.1) Hemoglobin 14.6 g/dL (14.0-18.0) Hematocrit 40.7 % (42-52) Mean Corpuscular Volume 87.5 fL (80-100) Mean Corpuscular Hemoglobin 31.4 pg (25-34) Mean Corpuscular Hemoglobin Concent 35.9 g/dl (32-36) Platelet Count 228 K/uL (130-400) Mean Platelet Volume 9.0 fL (7.4-10.4) Neutrophils (%) (Auto) 64.6 % Lymphocytes (%) (Auto) 22.2 % Monocytes (%) (Auto) 7.9 % Eosinophils (%) (Auto) 4.4 % Basophils (%) (Auto) 0.7 % Neutrophils # (Auto) 2.80 K/uL (1.4-6.5) Lymphocytes # (Auto) 0.96 K/uL (1.2-3.4) Monocytes # (Auto) 0.34 K/uL (0.11-0.59) Eosinophils # (Auto) 0.19 K/uL (0-0.5) Basophils # (Auto) 0.03 K/uL (0-0.2) RDW Standard Deviation 42.0 fL (36.4-46.3) RDW Coefficient of Variation 13.2 % (11.5-14.5) Immature Granulocyte % (Auto) 0.2 % Immature Granulocyte # (Auto) 0.01 K/uL (0.00-0.02) Anion Gap 6.0 mmol/L (3-11) Est Creatinine Clear Calc Drug Dose 163.9 ml/min Estimated GFR () 134.4 Estimated GFR (Non- 115.9 BUN/Creatinine Ratio 18.9 (10-20) Calcium Level 8.8 mg/dl (8.5-10.1) Total Bilirubin 0.4 mg/dl (0.2-1) Direct Bilirubin < 0.1 mg/dl (0-0.2) Aspartate Amino Transf (AST/SGOT) 26 U/L (15-37) Alanine Aminotransferase (ALT/SGPT) 43 U/L (12-78) Alkaline Phosphatase 66 U/L (45-117) Total Protein 7.5 gm/dl (6.4-8.2) Albumin 3.9 gm/dl (3.4-5.0) Lipase 224 U/L (73-393) Medications Administered Medications (Trade) Dose Ordered Sig/Diego Route Start Time Stop Time Status Last Admin Dose Admin Metoclopramide HCl (Reglan Inj) 10 mg NOW STAT IV 01/22/17 05:36 01/22/17 05:41 DC 01/22/17 06:07 10 MG Diphenhydramine HCl (Benadryl Inj) 25 mg NOW STAT IV 01/22/17 05:36 01/22/17 05:41 DC 01/22/17 06:04 25 MG Ketorolac Tromethamine (Toradol Inj) 30 mg NOW STAT IV 01/22/17 05:36 01/22/17 05:41 DC 01/22/17 06:06 30 MG Dicyclomine HCl (Bentyl Inj) 20 mg NOW ONCE IM 01/22/17 05:45 01/22/17 05:46 DC 01/22/17 06:05 20 MG ED Course Prior records/ancillary studies reviewed. Triage Nursing notes reviewed. Additional history obtained from the family. The patient's history was concerning for nausea, vomiting, diarrhea, and abdominal pain. Differential diagnosis: Etiologies such as gastroenteritis, food borne illness, infections, appendicitis , diverticulitis, inflammatory bowel disease, obstruction, GI bleed, biliary pathology, as well as others were entertained. Physical examination findings: As above. Abdominal examination revealed right upper quadrant pain. Vital signs reviewed and revealed stable. ER treatment provided: By mouth fluids, Toradol, Reglan, Bentyl, Benadryl. Patient states he can take NSAIDs. On reassessment the patient felt better. Patient was tolerating p.o. intake. Diagnostics interpretation by me: The labs revealed no leukocytosis. Mild hyperglycemia without DKA C. difficile pending and patient is requesting to leave and will follow up for this. Prior HIDA scan and ultrasound were normal per chart review This appears to be consistent with vomiting, diarrhea and ongoing intermittent right upper quadrant pain. This could be related to IBS. Patient felt much better with the Bentyl. Patient was advised to continue outpatient workup. Patient did not have acute abdomen on exam. He is well-appearing. He is tolerating fluids. He is advised to bland diet and to take medicines as directed. He is advised to return to the ER immediately for abdominal pain, fevers, vomiting, black or blood in the stool, worsening signs or symptoms or as needed. By the evaluation outlined above emergent etiologies such as appendicitis, diverticulitis, obstruction, cardiac sources, mesenteric ischemia , aortic pathology, inflammatory bowel disease, renal colic, PUD, biliary pathology, UTI, as well as others were deemed relatively unlikely. The pt informed about the findings as listed above. All questions were answered and pleased with the treatment. Return instructions were outlined and the patient was discharged in stable condition. Outpatient prescription management: codey Kelley Referral: The patient was referred to their primary care physician for follow-up in 2 to 3 days for a recheck of the current condition. Medical Decision As above Impression Primary Impression: Nausea vomiting and diarrhea Additional Impression: Right upper quadrant abdominal pain Departure Information Dispostion Home / Self-Care Condition GOOD Referrals Candelaria Flores C.R.N.P. (PCP) Patient Instructions My [facility] Additional Instructions DO NOT drive, drink alcohol, operate machinery, or perform dangerous activities today. You were given medications in the ER that can affect your ability to safely function or operate a vehicle. Bentyl 20 m tablet every 6 hours as needed for abdominal pain and cramping. Zofran 4 mg: Take one every six hours as needed for nausea. Avoid alcohol, operating machinery or dangerous equipment, working on ladders or roofs, DRIVING , or situations where being under the influence may be dangerous. Acetaminophen(Tylenol) may be used for fever or pain. Use 1000mg every six hours as needed. Avoid using more than 3000mg in a 24 hour period. Rest and drink plenty of fluids as tolerated. Slow sips of water or sports drinks are recommended instead of large amounts all at once. Continue current medications. Once your stomach is settled start with a clear liquid diet (jello, soup broth, etc.) and then advance as tolerated. You should avoid full, heavy meals for about 24 hrs from the time your symptoms resolved. Return to the ER for persistent vomiting, fevers, abdominal pain, chest pains, difficulty breathing, black or bloody stools, worsening of your condition, or as needed. Follow up with your primary physician in 2-3 days for a recheck of your current condition. Problem Qualifiers
[2017-01-22] MEDS ORDERED: DICY20TA35 PO (06:42)
[2017-01-22] MEDS ORDERED: ONDA4TAB10 SL (06:42)
[2017-01-22 06:50] VITALS: BP 131/75; PULSE 81; O2SAT 97
== END 2017-01-22 06:52 | disposition home or self-care (01) ==
LOC: C.EDB 05:24
DX: R11.2 Nausea with vomiting, unspecified (principal); R19.7 Diarrhea, unspecified; R10.11 Right upper quadrant pain; I10 Essential (primary) hypertension; K21.9 Gastro-esophageal reflux disease without esophagitis; F32.9 Major depressive disorder, single episode, unspecified; Z98.890 Other specified postprocedural states; Z83.3 Family history of diabetes mellitus; Z82.49 Family history of ischemic heart disease and other diseases of the circulatory system; Z79.899 Other long term (current) drug therapy

== ENCOUNTER → 2017-01-25 | Outpatient (CLI) | payer OTHER ==
[~2017-01-25] MED LIST changes: +DICY20TA35 PO
--- NOTE | 2017-01-25 16:15 | DIAGNOSTIC IMAGING REPORT ---
ORBIT RADIOGRAPHS 3 VIEWS HISTORY: pre-MRI screening. COMPARISON: None. FINDINGS: There are no radiopaque foreign bodies identified within the orbits. IMPRESSION: No radiopaque foreign bodies identified within the orbits. Electronically signed by: Omar Mayen M.D. 01/25/2017 4:13 PM Dictated Date/Time: 01/25/2017 4:13 PM
--- NOTE | 2017-01-25 19:05 | DIAGNOSTIC IMAGING REPORT ---
MRI OF THE THORACIC SPINE WITHOUT IV CONTRAST CLINICAL HISTORY: Right-sided chest wall pain. COMPARISON STUDY: MRI of the thoracic spine dated 09/08/2015. TECHNIQUE: MRI of the thoracic spine is performed utilizing various T1 and T2-weighted sequences in the axial and sagittal planes. IV contrast was not administered for this examination. FINDINGS: Vertebral body height and alignment are maintained throughout the thoracic spine. Normal marrow signal intensity is preserved throughout the visualized bony structures. The spinous processes appear intact. The intervertebral discs are normal in height and signal intensity. The thoracic spinal cord is normal in morphology and signal intensity. The conus medullaris terminates at L1. There is no central canal stenosis identified. No significant neural foraminal narrowing is seen throughout the thoracic spine. A hemangioma is incidentally noted in the body of T7. The lung parenchyma is grossly unremarkable, but not well evaluated by MRI. The paraspinous soft tissues are within normal limits. IMPRESSION: 1. There is no disc herniation, central canal stenosis, or neural foraminal stenosis seen throughout the thoracic spine. 2. The thoracic spinal cord is normal in morphology and signal intensity. 3. No destructive bony process is seen. Dictated: 01/25/2017 5:09 PM Transcribed: 01/25/2017 7:05 PM DORY_Ariel Electronically signed by: Riley Kimble M.D. 01/26/2017 7:34 AM Dictated Date/Time: 01/25/2017 5:09 PM
== END | disposition home or self-care (01) ==
LOC: C.RAD 15:34
PROVIDERS: ATTEND Family Medicine
DX: Z01.818 Encounter for other preprocedural examination (principal); R07.89 Other chest pain

== ENCOUNTER 2017-05-28 02:52 | Emergency (ER) | payer OTHER ==
[~2017-05-28] VITALS: Ht 172.7 cm; Wt 113.4 kg
[~2017-05-28 02:52] MED LIST changes: -DICY20TA35 PO
[2017-05-28 02:56] VITALS: TEMP 36.8; Ht 172.7 cm; Wt 113.4 kg
[2017-05-28] MEDS ORDERED: ALUMINUM/MAGNESIUM SUSP 30 ML UDC PO STA (03:04)
[2017-05-28] MEDS ORDERED: KETOROLAC TROMETHAMINE 30 MG/ML VIAL IV STA (03:04)
[2017-05-28] MEDS ORDERED: SODIUM CHLORIDE 0.9% 1000ML 1,000 ML IV STA (03:04)
[2017-05-28] MEDS ORDERED: LIDOCAINE HCL 2% VISC SOLN 20 ML UDC PO STA (03:04)
[2017-05-28] MEDS ORDERED: METOCLOPRAMIDE HCL INJ 5 MG/ML 2 ML VIAL IV STA (03:04)
[2017-05-28] MEDS ORDERED: DiphenhydrAMINE HCL 50 MG/ML VIAL IV STA (03:04)
[2017-05-28] MEDS ORDERED: OPTIRAY 320 IV PRN (03:15)
[2017-05-28] MEDS ORDERED: CLINDAMYCIN 600 MG/54 ML D5W IV ONE (03:15)
[2017-05-28] MEDS ORDERED: MULT-506 PO (03:36)
[2017-05-28] MEDS ORDERED: OMEG10007 PO (03:36)
[2017-05-28 04:07] LABS: BASO % 0.3 %; BASO ABS # 0.02 K/uL (0-0.2); EOS % 2.9 %; EOS ABS # 0.17 K/uL (0-0.5); HEMATOCRIT 39.7 % (42-52); HEMOGLOBIN 14.4 g/dL (14.0-18.0); IG# 0.01 K/uL (0.00-0.02); LYMPH % 18.2 %; LYMPH ABS # 1.08 K/uL (1.2-3.4); MEAN CELL VOLUME 84.1 fL (80-100); MEAN CORPUSCULAR HEMOGLOBIN 30.5 pg (25-34); MEAN CORPUSCULAR HGB CONC 36.3 g/dl (32-36); MEAN PLATELET VOLUME 9.1 fL (7.4-10.4); MONO % 8.3 %; MONO ABS # 0.49 K/uL (0.11-0.59); NEUT % 70.1 %; NEUT ABS # 4.15 K/uL (1.4-6.5); PLATELET COUNT 213 K/uL (130-400); RED CELL DISTRIBUTION WIDTH CV 12.7 % (11.5-14.5); WHITE BLOOD COUNT 5.92 K/uL (4.8-10.8)
[2017-05-28 04:38] LABS: ALT/SGPT 33 U/L (12-78); AST/SGOT 20 U/L (15-37); BLOOD UREA NITROGEN 17 mg/dl (7-18); CARBON DIOXIDE 25 mmol/L (21-32); CREATININE 1.01 mg/dl (0.60-1.40); GLUCOSE 105 mg/dl (70-99); LIPASE 192 U/L (73-393); POTASSIUM 3.6 mmol/L (3.5-5.1); SODIUM 136 mmol/L (136-145)
[2017-05-28 04:43] LABS: ALKALINE PHOSPHATASE 66 U/L (45-117); TOTAL PROTEIN 7.5 gm/dl (6.4-8.2)
[2017-05-28 05:42] VITALS: BP 118/76; PULSE 70; O2SAT 98
--- NOTE | 2017-05-28 05:49 | EMERGENCY ROOM VISIT NOTE ---
History First contact with patient: 02:58 Chief Complaint: DENTAL PAIN Stated Complaint: STOMACH PAIN, TOOTH PAIN, FACE SWELLING Nursing Triage Summary: pt c/o right sided dental pain with swelling, started yesterday on antibiotic, pt to have them taken out end of this month, pt woke with abd pain History of Present Illness The patient is a 36 year old male who presents to the Emergency Room with complaints of right-sided dental pain and swelling for the past few days currently on amoxicillin by the family care doctor. He has an appointment at the end of the month for dental extraction. Patient woke up in the middle the night with epigastric discomfort described as discomfort, ranging in severity 6 out of 10. Nothing makes it better or worse. Patient denies chest pain, dyspnea, fever, chills, vomiting, diarrhea, back pain, urinary symptoms, neck stiffness, cold symptoms, dysphagia, tongue swelling. He is tolerating p.o. fluids and food. Review of Systems An 10 system review of systems was completed with positives and pertinent negatives listed in the HPI. Past Medical/Surgical History Medical Problems: (1) Anxiety disorder (2) Back pain (3) Back pain (4) Depression (5) Depressive disorder (6) Esophageal Reflux (7) GERD (gastroesophageal reflux disease) (8) Hand crush injury (9) Herniated disc (10) HTN (hypertension) (11) Left hand pain (12) Left shoulder pain (13) Musculoskeletal pain (14) Shoulder pain Surgical Problems: (1) H/O umbilical hernia repair (2) History of carpal tunnel release (3) History of carpal tunnel surgery of left wrist (4) History of herniorrhaphy (5) History of umbilical hernia repair (6) S/P carpal tunnel release Family History Diabetes mellitus MOTHER Gallbladder disease MOTHER Hypertension MOTHER Lung disease MOTHER Social History Smoking Status: Current Some Day Smoker Alcohol Use: occasionally Marital Status: Housing Status: lives with significant other Occupation Status: employed Current/Historical Medications Scheduled Carisoprodol (Soma), 350 MG PO QID Clindamycin Hcl (Cleocin), 150 MG PO QID Fish Oil ([place]-3), 1 CAP PO DAILY Fluoxetine (Prozac), 40 MG PO DAILY Gabapentin (Neurontin), 400 MG PO QID Hydrochlorothiazide (Hctz), 12.5 MG PO DAILY Lisinopril (Zestril), 20 MG PO DAILY Multivitamin (Multivitamin), 1 TAB PO DAILY Nortriptyline Hcl (Pamelor), 75 MG PO HS Omeprazole (Prilosec), 40 MG PO DAILY Scheduled PRN Albuterol Hfa (Ventolin Hfa), 2 PUFFS INH UD PRN for SOB/Wheezing Fluticasone Propionate (Nasal) (Flonase Allergy Relief), 1 SPRAY ANNY BID PRN for Allergy Symptoms Physical Exam Vital Signs Date Time Temp Pulse Resp B/P (MAP) Pulse Ox O2 Delivery O2 Flow Rate FiO2 05/28/17 05:42 70 16 118/76 98 Room Air 05/28/17 02:56 36.8 66 18 135/87 97 Room Air Physical Exam VITALS: Vitals are noted on the nurse's note and reviewed by myself. Vital signs stable. GENERAL: Pleasant male, in no acute distress, nondiaphoretic, well-developed well-nourished. SKIN: The skin was without rashes, erythema, edema, or bruising. There is no tenting of the skin. Capillary reflex less than 2 seconds. HEAD: Normocephalic atraumatic. Face: Right zygomatic area edematous and erythematous concerning for dental infection. Dental exam: Right upper and lower second molar carious with minimal gumline swelling. No Mark's angina. No trismus EARS: External auditory canals clear, tympanic membranes pearly phelps without erythema or effusion bilaterally. EYES: Pupils equal round and reactive to light and accommodation. Conjunctivae without injection, sclerae without icterus. Extraocular movements intact. NOSE: Patent, turbinates without inflammation or discharge. No sinus tenderness. MOUTH: Mucous membranes moist. Pharynx without erythema or exudate. Uvula midline. Airway patent. Tongue does not deviate. NECK: Supple without nuchal rigidity. No lymphadenopathy. No thyromegaly. Cervical spine is nontender. No JVD. HEART: Regular rate and rhythm without murmurs gallops or rubs. LUNGS: Clear to auscultation bilaterally without wheezes, rales or rhonchi. No retractions or accessory muscle use. ABDOMEN: Positive bowel sounds x 4. Normal tympanic percussion. Soft, tender to palpation epigastric region, without masses or organomegaly. No guarding or rebound tenderness. No CVA tenderness MUSCULOSKELETAL: No muscle atrophy, erythema, or edema noted. NEURO: Patient was alert and oriented to person place and time. Normal sensation to light and sharp touch. No focal neurological deficits. Medical Decision & Procedures Laboratory Results 05/28/17 03:40 Red Blood Count 4.72, Mean Corpuscular Volume 84.1, Mean Corpuscular Hemoglobin 30.5, Mean Corpuscular Hemoglobin Concent 36.3, Mean Platelet Volume 9.1, Neutrophils (%) (Auto) 70.1, Lymphocytes (%) (Auto) 18.2, Monocytes (%) (Auto) 8.3, Eosinophils (%) (Auto) 2.9, Basophils (%) (Auto) 0.3, Neutrophils # (Auto) 4.15, Lymphocytes # (Auto) 1.08, Monocytes # (Auto) 0.49, Eosinophils # (Auto) 0.17, Basophils # (Auto) 0.02 05/28/17 03:40 Test 05/28/17 03:40 05/28/17 03:50 White Blood Count 5.92 K/uL (4.8-10.8) Red Blood Count 4.72 M/uL (4.7-6.1) Hemoglobin 14.4 g/dL (14.0-18.0) Hematocrit 39.7 % (42-52) Mean Corpuscular Volume 84.1 fL (80-100) Mean Corpuscular Hemoglobin 30.5 pg (25-34) Mean Corpuscular Hemoglobin Concent 36.3 g/dl (32-36) Platelet Count 213 K/uL (130-400) Mean Platelet Volume 9.1 fL (7.4-10.4) Neutrophils (%) (Auto) 70.1 % Lymphocytes (%) (Auto) 18.2 % Monocytes (%) (Auto) 8.3 % Eosinophils (%) (Auto) 2.9 % Basophils (%) (Auto) 0.3 % Neutrophils # (Auto) 4.15 K/uL (1.4-6.5) Lymphocytes # (Auto) 1.08 K/uL (1.2-3.4) Monocytes # (Auto) 0.49 K/uL (0.11-0.59) Eosinophils # (Auto) 0.17 K/uL (0-0.5) Basophils # (Auto) 0.02 K/uL (0-0.2) RDW Standard Deviation 39.0 fL (36.4-46.3) RDW Coefficient of Variation 12.7 % (11.5-14.5) Immature Granulocyte % (Auto) 0.2 % Immature Granulocyte # (Auto) 0.01 K/uL (0.00-0.02) Anion Gap 5.0 mmol/L (3-11) Est Creatinine Clear Calc Drug Dose 122.4 ml/min Estimated GFR () 109.6 Estimated GFR (Non- 94.6 BUN/Creatinine Ratio 16.7 (10-20) Calcium Level 9.0 mg/dl (8.5-10.1) Total Bilirubin 0.6 mg/dl (0.2-1) Direct Bilirubin < 0.1 mg/dl (0-0.2) Aspartate Amino Transf (AST/SGOT) 20 U/L (15-37) Alanine Aminotransferase (ALT/SGPT) 33 U/L (12-78) Alkaline Phosphatase 66 U/L (45-117) Troponin I < 0.015 ng/ml (0-0.045) Total Protein 7.5 gm/dl (6.4-8.2) Albumin 4.0 gm/dl (3.4-5.0) Lipase 192 U/L (73-393) Bedside Troponin I < 0.030 ng/ml (0-0.045) Medications Administered Medications (Trade) Dose Ordered Sig/Diego Route Start Time Stop Time Status Last Admin Dose Admin Lidocaine HCl (Viscous Lidocaine 2% Soln) 10 ml NOW STAT PO 05/28/17 03:04 05/28/17 03:07 DC 05/28/17 04:00 10 ML Al Hydroxide/Mg Hydroxide (Maalox Susp) 30 ml NOW STAT PO 05/28/17 03:04 05/28/17 03:07 DC 05/28/17 04:00 30 ML Clindamycin Phosphate (Cleocin 600mg/ 54ml D5W) 600 mg ONE ONCE IV 05/28/17 03:15 05/28/17 03:16 DC 05/28/17 04:10 600 MG Ketorolac Tromethamine (Toradol Inj) 10 mg NOW STAT IV 05/28/17 03:04 05/28/17 03:07 DC 05/28/17 04:01 10 MG Diphenhydramine HCl (Benadryl Inj) 12.5 mg NOW STAT IV 05/28/17 03:04 05/28/17 03:07 DC 05/28/17 04:00 12.5 MG Metoclopramide HCl (Reglan Inj) 10 mg NOW STAT IV 05/28/17 03:04 05/28/17 03:07 DC 05/28/17 04:00 10 MG Sodium Chloride 1,000 ml @ 999 mls/hr Q1H1M STAT IV 05/28/17 03:04 05/28/17 04:04 DC 05/28/17 04:01 999 MLS/HR ED Course Prior records/ancillary studies reviewed. Triage Nursing notes reviewed. The patient's history was concerning for abdominal pain and dental pain. Differential diagnosis: Etiologies such as appendicitis, diverticulitis, PUD, biliary pathology, UTI, pancreatitis, obstruction, mesenteric ischemia, aortic pathology, infections, inflammatory bowel disease, renal colic, dental infection, Mark's angina, gingivitis, dental cavity, as well as others were entertained. Physical examination findings: As above. ER treatment provided: GI cocktail, Toradol, Benadryl, Reglan. Patient states he can take NSAIDs. It occasionally upsets his stomach. He took Toradol yesterday. On reassessment the patient felt better. Diagnostics interpreted by me: ECG: Normal sinus, normal intervals, no acute ST-T wave changes, rate of 53. Impression sinus bradycardia interpreted by myself The labs revealed no leukocytosis. Stable H&H. Negative troponin Imaging studies: US RUQ: Common bile duct is within normal limits. Gallbladder is unremarkable. Nonobstructing calculus within the right kidney. No hydronephrosis. Probable tiny cyst within left hepatic lobe. Probable mild increased echogenicity of liver suggesting hepatic steatosis. Radiologist: Steve Daily MD CT FACIAL: No significant soft tissue abnormality identified. No gas or foreign bodies. No abscess. Dental caries with periapical lucencies suggesting periodontal disease. No facial bone fracture identified. Globes and orbits are intact. Minimal mucosal thickening of paranasal sinuses. Radiologist: Steve Daily MD Chest x-ray with no acute consolidation, pneumothorax free of my interpretation HEART SCORE: Hx: high/mod/low suspicion: 0 ECG: ST depression/nonspecific changes/normal: 0 Age: Greater than 65/45-64/less than 45: 0 Risk factors: (Hypertension, hyperlipidemia, diabetes, coronary disease, tobacco use, cocaine use): 1 Troponin: Greater than 2 times normal limits/1-2 times normal limits/normal: 0 Total: 1 Exam and history seem consistent with dental infection and reflux. Patient felt much better after being medicated as above. He did not have acute abdomen on exam. He is well-appearing. He is tolerating fluids. He was advised to stop the amoxicillin and begin clindamycin. He was advised to follow-up as scheduled with dentistry for definitive care for his ongoing dental issues and family care for his abdominal discomfort. He was advised to return to the ER meaty for abdominal pain, fevers, vomiting, worsening signs or symptoms or as needed. Patient had a normal EKG and negative troponin. By the evaluation outlined above emergent etiologies such as appendicitis, diverticulitis, PUD, biliary pathology, UTI, pancreatitis, obstruction, mesenteric ischemia, aortic pathology, infections, inflammatory bowel disease, renal colic, as well as others were deemed relatively unlikely. The pt informed about the findings as listed above. All questions were answered and pleased with the treatment. Return instructions were outlined and the patient was discharged in stable condition. Outpatient prescription management: Clindamycin, Protonix Referral: The patient was referred back to their primary care physician and dentist for follow-up in 2 to 3 days for a recheck of the current condition. Case reviewed with my attending The chart was completed utilizing [employer] Speech voice recognition software. Grammatical errors, random word insertions, pronoun errors, and incomplete sentences are an occassional consequence of this system due to software limitations, ambient noise, and hardware issues. Any formal questions or concerns about the content, text, or information contained within the body of this dictation should be directly addressed to the physician visitor services information assistant for clarification. Medical Decision As above Medication Reconcilliation Current Medication List: was personally reviewed by me Blood Pressure Screening Patient's blood pressure: Normal blood pressure Impression Primary Impression: Epigastric discomfort Additional Impressions: Periapical abscess Dental caries Departure Information Dispostion Home / Self-Care Condition GOOD Prescriptions Clindamycin Hcl (CLEOCIN) 150 Mg Cap 150 MG PO QID for 9 Days, #36 CAP Prov: Juli Christian .HERO 05/28/17 Referrals Candelaria Flores, C.R.N.P. (PCP) Patient Instructions My [facility] Additional Instructions Epigastric discomfort: Continue your Protonix. Try Maalox or Zantac for breakthrough symptoms for reflux. Avoid large meals. Avoid acidic foods. Rest and drink plenty of fluids as tolerated. Continue current medications. Avoid strenuous activities and anything that worsens your pain. Resume normal activities once your symptoms resolve. Return to the ER immediately for worsening or persistent chest pain, abdominal pain, black or blood in your stools, vomiting, fevers, chest pains, difficulty breathing, worsening of your condition, or as needed. Follow up with your primary physician in 2-3 days for a recheck of your current condition. Dental infection: Stop your amoxicillin and begin clindamycin. Clindamycin 150mg: Take one pill 4 times daily for 10 days for your infection. Take with food, but avoid dairy. Avoid prolonged sun exposure since this medication makes you temporarily more susceptible to sunburns. All antibiotics can cause diarrhea. If this occurs and you feel worse or it does not resolve in 1-2 days follow up with your doctor or return to the Emergency Department as this could be signs of serious underlying problems. Any medication can cause an allergic reaction, stop the pills immediately and return to the ER for rash, hives, breathing difficulties, or swelling. Oxycodone (OxyIR) 5mg: Take 1-2 pills every four hours for breakthrough pain. Avoid alcohol, operating machinery or dangerous equipment, working on ladders or roofs, DRIVING, or situations where being under the influence may be dangerous. It is recommended to use an [id number] stool softener such as Colace, 100mg twice daily while taking this medication to avoid constipation. Acetaminophen(Tylenol) may be used for fever or pain. Use 1000mg every six hours as needed. Avoid using more than 3000mg in a 24 hour period. This medication can be taken if you need to drive, work, or perform activities which may be dangerous when taking narcotic pain medication. [place] teeth twice a day, floss daily and do warm saltwater gargles 3 times a day. See a dentist as soon as possible for definitive care for your dental problem. Return to ER sooner for facial swelling, fever, redness, worsening signs or symptoms or as needed. Problem Qualifiers
[2017-05-28] MEDS ORDERED: CLIN150C PO (05:52)
[2017-05-28] MEDS ORDERED: CLINDAMYCIN 150MG HOME PACK PO ONE (06:00)
[2017-05-28] MEDS ORDERED: OXYCODONE IR HOME PACK PO ONE (06:00)
--- NOTE | 2017-05-28 06:10 | DIAGNOSTIC IMAGING REPORT ---
BILIARY ULTRASOUND CLINICAL HISTORY: ] Quadrant abdominal pain COMPARISON STUDY: 12/14/2016 FINDINGS: Pancreas appears sonographically normal. There is a 6 mm left lobe hepatic cyst. There is slightly coarsened hepatic echotexture. There is no ductal dilatation. The common bile duct measures 3 mm. The gallbladder. Sonographically normal. There is no right-sided hydronephrosis. There is a 5 mm echogenic focus within the midpole of the right kidney. IMPRESSION: 1. Ultrasonographically normal pancreas and gallbladder 2. No ductal dilatation. 3. Nonspecific 5 mm echogenic focus within the midpole of the right kidney 4. 6 mm left lobe hepatic cyst. Slightly coarsened hepatic echotexture. Electronically signed by: Jaylen Morales M.D. 05/28/2017 6:09 AM Dictated Date/Time: 05/28/2017 6:06 AM
--- NOTE | 2017-05-28 07:04 | DIAGNOSTIC IMAGING REPORT ---
CT FACIAL-MAXILLOFACIAL WITH CT DOSE: CLINICAL HISTORY: Right-sided facial swelling history of pain TECHNIQUE: The patient was scanned in a dynamic helical fashion during intravenous administration of 94 cc of Optiray 320. A dose lowering technique was utilized adhering to the principles of ALARA. COMPARISON STUDY: None. FINDINGS: No salivary gland masses are visualized. Mildly prominent cervical lymph nodes are likely reactive. No orbital masses are visualized. The visualized portions intracranial contents are unremarkable. No facial fractures are visualized. The ostiomeatal units are patent bilaterally. There is a small right maxillary sinus retention cyst. There is no evidence of airway compromise. There are no fluid collections to indicate an abscess. There are several dental caries. There are several dental apical abscesses. IMPRESSION: 1. Dental caries and dental apical abscesses 2. No evidence of soft tissue abscess. 3. No evidence of airway compromise 4. No evidence of acute sinusitis Electronically signed by: Jaylen Morales M.D. 05/28/2017 7:02 AM Dictated Date/Time: 05/28/2017 6:57 AM
--- NOTE | 2017-05-28 07:18 | DIAGNOSTIC IMAGING REPORT ---
CHEST ONE VIEW PORTABLE CLINICAL HISTORY: Atypical chest pain COMPARISON STUDY: 12/14/2016 FINDINGS: The cardiac and mediastinal contours are normal. There is no evidence of focal pulmonary consolidation. There is no evidence of failure. No pleural effusions are visualized.[ IMPRESSION: No active disease in the chest. Electronically signed by: Jaylen Morales M.D. 05/28/2017 7:16 AM Dictated Date/Time: 05/28/2017 7:16 AM
== END 2017-05-28 06:04 | disposition home or self-care (01) ==
LOC: C.EDB 02:54 → C.EDA 06:04
DX: K04.7 Periapical abscess without sinus (principal); K02.9 Dental caries, unspecified; R10.13 Epigastric pain; F41.8 Other specified anxiety disorders; K21.9 Gastro-esophageal reflux disease without esophagitis; I10 Essential (primary) hypertension; Z83.3 Family history of diabetes mellitus; Z83.79 Family history of other diseases of the digestive system; Z82.49 Family history of ischemic heart disease and other diseases of the circulatory system; Z83.6 Family history of other diseases of the respiratory system

== ENCOUNTER 2017-06-05 13:26 | Emergency (ER) | payer OTHER ==
[~2017-06-05] VITALS: Ht 172.7 cm; Wt 112.1 kg
[~2017-06-05 13:26] MED LIST changes: +CLIN150C PO; +MULT-506 PO; +OMEG10007 PO; -ONDA4TAB10 SL; -SUCR1TAB29 PO
[2017-06-05 13:31] VITALS: TEMP 36.6; Ht 172.7 cm; Wt 112.1 kg
[2017-06-05] MEDS ORDERED: KETOROLAC TROMETHAMINE 30 MG/ML VIAL IV STA (13:58)
[2017-06-05 14:16] LABS: BASO % 1.2 %; BASO ABS # 0.04 K/uL (0-0.2); EOS % 4.7 %; EOS ABS # 0.16 K/uL (0-0.5); HEMATOCRIT 37.7 % (42-52); HEMOGLOBIN 13.6 g/dL (14.0-18.0); IG# 0.02 K/uL (0.00-0.02); LYMPH % 36.6 %; LYMPH ABS # 1.26 K/uL (1.2-3.4); MEAN CORPUSCULAR HEMOGLOBIN 30.3 pg (25-34); MEAN CORPUSCULAR HGB CONC 36.1 g/dl (32-36); MEAN PLATELET VOLUME 8.7 fL (7.4-10.4); MONO % 9.3 %; MONO ABS # 0.32 K/uL (0.11-0.59); NEUT % 47.6 %; NEUT ABS # 1.64 K/uL (1.4-6.5); PLATELET COUNT 252 K/uL (130-400); RED CELL DISTRIBUTION WIDTH CV 13.2 % (11.5-14.5); RED CELL DISTRIBUTION WIDTH SD 39.5 fL (36.4-46.3); WHITE BLOOD COUNT 3.44 K/uL (4.8-10.8)
[2017-06-05] MEDS ORDERED: ONDANSETRON INJ 2 MG/ML 2 ML VIAL IV STA (14:22)
[2017-06-05] MEDS ORDERED: CLINDAMYCIN 600 MG/54 ML D5W IV STA (14:26)
[2017-06-05 14:32] LABS: CALCIUM 8.9 mg/dl (8.5-10.1); CREATININE 0.85 mg/dl (0.60-1.40); POTASSIUM 3.9 mmol/L (3.5-5.1)
[2017-06-05 14:35] LABS: TOTAL PROTEIN 7.5 gm/dl (6.4-8.2)
[2017-06-05] MEDS ORDERED: NORCO 5/325MG HOME PACK PO STA (14:44)
[2017-06-05] MEDS ORDERED: CLIN1CAP51 PO (14:48)
[2017-06-05] MEDS ORDERED: HYDR-5688 PO (14:49)
--- NOTE | 2017-06-05 14:51 | EMERGENCY ROOM VISIT NOTE ---
ED Visit Note First contact with patient: 13:45 CHIEF COMPLAINT: Toothache HISTORY OF PRESENT ILLNESS: This 36-year-old male patient presented to the emergency department, ambulatory, with a progressive toothache for past 2-3 weeks. The patient believes it is coming from his right wisdom teeth. The pain is now steady and severe and radiates to the face. He was seen here once before and started on clindamycin 150 mg 4 times daily maximally 8 days ago. He states he has been taking this medication as directed, but ran out of pain medication. The patient did have a CT scan performed that day which was negative for acute abscess or obvious cellulitic changes. The patient does have a oral surgeon appointment set up for to have the teeth pulled. They rate their pain a 9/10 and the ibuprofen and Tylenol they have been taking has not relieved the pain. Denies fever, but feels that the facial swelling is worse. The patient denies any redness or drainage. He patient denies any discharge from the mouth. REVIEW OF SYSTEMS: A 6 system review of systems was completed with positives and pertinent negatives listed in the HPI. ALLERGIES: None MEDICATIONS: Clindamycin, Prozac, Soma, Flonase, gabapentin, nortriptyline, lisinopril, hydrochlorothiazide, Prilosec, Ventolin PMH: Hypertension, arthritis, scoliosis, disc protrusion, DJD, GERD, depression SOCIAL HISTORY: The patient denies drug, alcohol use. He does admit to occasional tobacco use. PHYSICAL EXAM: Vitals are noted on the nurse's note and reviewed by myself. Vital signs stable. Temperature 36.6C orally. GENERAL: This is a 36-year-old obese white male, in no acute distress, nondiaphoretic, well-developed well- nourished. Mouth: There is no obvious specific affected tooth, however many teeth are very carious. The gums are not swollen or tender. There is no discharge or signs of an abscess. The remainder of the pharynx and tonsils are without erythema, edema, or exudate. The airway is patent. There is mild facial swelling, cervical or submandibular lymphadenopathy. The patient appears uncomfortable and in pain. The patient has overall poor dental hygiene. EARS: External auditory canals clear, tympanic membranes pearly phelps without erythema or effusion bilaterally. ED COURSE: The patient was seen and evaluated as above. Prior medical records reviewed. IV access initiated, labs drawn. Patient was given 30 mg Toradol IV. The patient requested nausea medication, was given 4 mg Zofran IV. Based on his history, and low dose of clindamycin, he was given an IV dose of clindamycin while here in the emergency department. Due to recent CT scan without signs of obvious abscess or cellulitic changes, the patient will not be re-imaged at this time. He does not have a significantly elevated white blood cell count, nor are his electrolytes abnormal. Renal function is normal. He does have an appointment scheduled with the oral surgeon for to have surgery performed, and was encouraged to contact their office tomorrow due to worsening symptoms to see if the surgery could be moved up. The patient states he will do this. He will be discharged home on a higher dose of clindamycin and narcotics until he sees the surgeon. All questions were answered to the patient and his family satisfaction. Discharge instructions reviewed, the patient was discharged home in good condition. I did discuss the case with my attending, and we were agreeable to the assessment and plan. I attest that I have personally reviewed the patient's current medication list. Patient was found to have normal blood pressure on screening and does not require follow-up. Differential diagnosis includes odontalgia, periapical abscess, acute sinusitis , osteomyelitis, gingivitis, pulpitis, dental caries, periodontitis, malignancy , and others DIAGNOSIS: Odontalgia The chart was completed utilizing [employer] Speech voice recognition software. Grammatical errors, random word insertions, pronoun errors, and incomplete sentences are an occasional consequence of this system due to software limitations, ambient noise, and hardware issues. Any formal questions or concerns about the content, text, or information contained within the body of this dictation should be directly addressed to the provider for clarification. Problem List Medical Problems: (1) Anxiety disorder Status: Chronic (2) Back pain Status: Resolved (3) Back pain Status: Resolved (4) Depression Status: Chronic (5) Depressive disorder Status: Chronic (6) Esophageal Reflux Status: Chronic (7) GERD (gastroesophageal reflux disease) Status: Chronic (8) Hand crush injury Status: Resolved (9) HTN (hypertension) Status: Chronic (10) Left hand pain Status: Resolved (11) Left shoulder pain Status: Resolved (12) Shoulder pain Status: Resolved Surgical Problems: (1) History of carpal tunnel release Status: Resolved (2) History of herniorrhaphy Status: Resolved (3) History of umbilical hernia repair Status: Resolved (4) S/P carpal tunnel release Status: Resolved Current/Historical Medications Scheduled Carisoprodol (Soma), 350 MG PO QID Clindamycin HCl (Clindamycin HCl), 3 CAP PO TID Clindamycin Hcl (Cleocin), 150 MG PO QID Fish Oil ([place]-3), 1 CAP PO DAILY Fluoxetine (Prozac), 40 MG PO DAILY Gabapentin (Neurontin), 400 MG PO QID Hydrochlorothiazide (Hctz), 12.5 MG PO DAILY Lisinopril (Zestril), 20 MG PO DAILY Multivitamin (Multivitamin), 1 TAB PO DAILY Nortriptyline Hcl (Pamelor), 75 MG PO HS Omeprazole (Prilosec), 40 MG PO DAILY Scheduled PRN Albuterol Hfa (Ventolin Hfa), 2 PUFFS INH UD PRN for SOB/Wheezing Fluticasone Propionate (Nasal) (Flonase Allergy Relief), 1 SPRAY ANNY BID PRN for Allergy Symptoms Hydrocodone/Acetaminophen 5MG/325MG (Ripton 5MG/325MG), 1 TABLET PO Q4H PRN for Pain Allergies Coded Allergies: NSAIDs (Unverified Allergy, Unknown, upset stomach, 06/05/17) Vital Signs Date Time Temp Pulse Resp B/P (MAP) Pulse Ox O2 Delivery O2 Flow Rate FiO2 06/05/17 15:10 70 18 112/54 98 06/05/17 13:31 36.6 87 18 122/78 96 Room Air Laboratory Results 06/05/17 14:05 Red Blood Count 4.49, Mean Corpuscular Volume 84.0, Mean Corpuscular Hemoglobin 30.3, Mean Corpuscular Hemoglobin Concent 36.1, Mean Platelet Volume 8.7, Neutrophils (%) (Auto) 47.6, Lymphocytes (%) (Auto) 36.6, Monocytes (%) (Auto) 9.3, Eosinophils (%) (Auto) 4.7, Basophils (%) (Auto) 1.2, Neutrophils # (Auto) 1.64, Lymphocytes # (Auto) 1.26, Monocytes # (Auto) 0.32, Eosinophils # (Auto) 0.16, Basophils # (Auto) 0.04 06/05/17 14:05 Test 06/05/17 14:05 White Blood Count 3.44 K/uL (4.8-10.8) Red Blood Count 4.49 M/uL (4.7-6.1) Hemoglobin 13.6 g/dL (14.0-18.0) Hematocrit 37.7 % (42-52) Mean Corpuscular Volume 84.0 fL (80-100) Mean Corpuscular Hemoglobin 30.3 pg (25-34) Mean Corpuscular Hemoglobin Concent 36.1 g/dl (32-36) Platelet Count 252 K/uL (130-400) Mean Platelet Volume 8.7 fL (7.4-10.4) Neutrophils (%) (Auto) 47.6 % Lymphocytes (%) (Auto) 36.6 % Monocytes (%) (Auto) 9.3 % Eosinophils (%) (Auto) 4.7 % Basophils (%) (Auto) 1.2 % Neutrophils # (Auto) 1.64 K/uL (1.4-6.5) Lymphocytes # (Auto) 1.26 K/uL (1.2-3.4) Monocytes # (Auto) 0.32 K/uL (0.11-0.59) Eosinophils # (Auto) 0.16 K/uL (0-0.5) Basophils # (Auto) 0.04 K/uL (0-0.2) RDW Standard Deviation 39.5 fL (36.4-46.3) RDW Coefficient of Variation 13.2 % (11.5-14.5) Immature Granulocyte % (Auto) 0.6 % Immature Granulocyte # (Auto) 0.02 K/uL (0.00-0.02) Anion Gap 8.0 mmol/L (3-11) Est Creatinine Clear Calc Drug Dose 144.5 ml/min Estimated GFR () 129.0 Estimated GFR (Non- 111.3 BUN/Creatinine Ratio 13.5 (10-20) Calcium Level 8.9 mg/dl (8.5-10.1) Total Bilirubin 0.8 mg/dl (0.2-1) Aspartate Amino Transf (AST/SGOT) 28 U/L (15-37) Alanine Aminotransferase (ALT/SGPT) 43 U/L (12-78) Alkaline Phosphatase 75 U/L (45-117) Total Protein 7.5 gm/dl (6.4-8.2) Albumin 4.0 gm/dl (3.4-5.0) Globulin 3.5 gm/dl (2.5-4.0) Albumin/Globulin Ratio 1.1 (0.9-2) Medications Administered Medications (Trade) Dose Ordered Sig/Diego Route Start Time Stop Time Status Last Admin Dose Admin Ketorolac Tromethamine (Toradol Inj) 30 mg NOW STAT IV 06/05/17 13:58 06/05/17 13:59 DC 06/05/17 14:20 30 MG Ondansetron HCl (Zofran Inj) 4 mg NOW STAT IV 06/05/17 14:22 06/05/17 14:23 DC 06/05/17 14:31 4 MG Clindamycin Phosphate (Cleocin 600mg/ 54ml D5W) 600 mg ONE STAT IV 06/05/17 14:26 06/05/17 14:29 DC 06/05/17 14:26 600 MG Acetaminophen/ Hydrocodone Bitart (Ripton 5/325mg Home Pack) 1 homepack UD STAT PO 06/05/17 14:44 06/05/17 14:46 DC 06/05/17 15:05 1 HOMEPACK Departure Information Impression Primary Impression: Odontalgia Dispostion Home / Self-Care Condition GOOD Prescriptions Hydrocodone/Acetaminophen 5MG/325MG (Ripton 5MG/325MG) Tab 1 TABLET PO Q4H Y for Pain, #15 TAB For Initial Treatment Prov: Nupur Monzon PA-C 06/05/17 Clindamycin HCl (Clindamycin HCl) 150 Mg Cap 3 CAP PO TID for 7 Days, #63 CAP Prov: Nupur Monzon PA-C 06/05/17 Referrals Candelaria Flores C.R.N.PBerenice (PCP) Patient Instructions ED Abscess Dental, [facility] Additional Instructions You have been treated in the Emergency Department for Dental Pain. You have been prescribed Ripton to be used for pain control. This is a narcotic medication. You cannot drive or consume alcohol while on this medicine. This medicine should only be used for pain that cannot be controlled with over-the- counter pain medicines. You were prescribed clindamycin to be taken 3 tablets 3 times per day for 7 days or until directed otherwise by your oral surgeon. This is an antibiotic. All antibiotics have the potential to cause diarrhea. Stop this medication and contact a medical provider if you were to develop any significant adverse side effects including: wheezing, shortness of breath, passing out, vomiting, or a diffuse rash. Always take antibiotics as directed and COMPLETE the ENTIRE course regardless of the improvement of your symptoms. For pain control, you can use the following [id number] medicines (if >12 yo): Ibuprofen(Motrin, Advil) may be used for fever or pain. Use 600mg every six hours as needed. Take with food. Avoid using more than 2400mg in a 24 hour period. Do not use 2400mg per day for more than three consecutive days without physician direction. Prolonged inappropriate use can lead to stomach upset or ulcers. Monitor acetaminophen intake including that which is in narcotics you were prescribed for pain. (AND/OR) Acetaminophen(Tylenol) may be used for fever or pain. Use 1000mg every six hours as needed. Avoid using more than 3000mg in a 24 hour period. Refrain from smoking cigarettes or using chewing tobacco until you have been evaluated by your dentist. Keeping beverages lukewarm and consuming soft foods can decrease your pain. Warm compresses over the affected area may offer some relief. You MUST seek evaluation of your dental pain by a dentist following your visit to the Emergency Department. The Emergency Department is not capable of treating dental issues long-term. You should call your dentist as soon as possible to make an appointment for evaluation of your dental pain. Return to the emergency department if you develop the following symptoms despite treatment course outlined above: fever, intractable pain, increased redness, swelling, or purulent discharge.
[2017-06-05 15:10] VITALS: BP 112/54; PULSE 70; O2SAT 98
== END 2017-06-05 15:11 | disposition home or self-care (01) ==
LOC: C.EDB 13:27 → C.EDD 15:11
DX: K08.89 Other specified disorders of teeth and supporting structures (principal); Z79.899 Other long term (current) drug therapy; I10 Essential (primary) hypertension; M19.90 Unspecified osteoarthritis, unspecified site; K21.9 Gastro-esophageal reflux disease without esophagitis; F32.9 Major depressive disorder, single episode, unspecified; F41.9 Anxiety disorder, unspecified

== ENCOUNTER → 2017-09-06 | Outpatient (CLI) | payer OTHER ==
[~2017-09-06] MED LIST changes: -CLIN150C PO; +HYDR-5688 PO
--- NOTE | 2017-09-06 16:11 | DIAGNOSTIC IMAGING REPORT ---
ABDOMEN FOR HERNIA HISTORY: 36 years-old Male GROIN PAIN acute pain of the right inguinal region COMPARISON: None CT abdomen and pelvis 12/04/2016 available TECHNIQUE: Multiple real-time sonographic images of the right inguinal canal soft tissues were obtained assessing grayscale appearance and color flow FINDINGS: Within the area of clinical concern within the abdominal right lower quadrant soft tissues and right inguinal region, no hernia, fluid collection, mass, tissue heterogeneity, adenopathy or other focal abnormality identified. IMPRESSION: No inguinal hernia identified. The above report was generated using voice recognition software. It may contain grammatical, syntax or spelling errors. Electronically signed by: Yvan Ag M.D. 09/06/2017 4:10 PM Dictated Date/Time: 09/06/2017 4:08 PM
== END | disposition home or self-care (01) ==
LOC: C.ULTR 15:38
PROVIDERS: ATTEND Nurse Practitioner Family
DX: R19.03 Right lower quadrant abdominal swelling, mass and lump (principal)

== ENCOUNTER 2017-10-05 09:35 | Emergency (ER) | payer OTHER ==
[~2017-10-05] VITALS: Ht 175.3 cm; Wt 107.6 kg
[2017-10-05 09:39] VITALS: TEMP 36.9; Ht 175.3 cm; Wt 107.6 kg
[2017-10-05] MEDS ORDERED: ONDANSETRON INJ 2 MG/ML 2 ML VIAL IV STA (09:46)
[2017-10-05] MEDS ORDERED: PROCHLORPERAZINE INJ 10 MG in SYRINGE 8 ML IV STA (09:46)
[2017-10-05] MEDS ORDERED: DiphenhydrAMINE HCL 50 MG/ML VIAL IV STA (09:46)
[2017-10-05] MEDS ORDERED: ACETAMINOPHEN 500 MG TAB PO STA (09:46)
[2017-10-05] MEDS ORDERED: SODIUM CHLORIDE 0.9% 1000ML 1,000 ML IV STA (09:46)
--- NOTE | 2017-10-05 10:00 | EMERGENCY ROOM VISIT NOTE ---
History Report prepared by Jamil: Michael Sanchez Under the Supervision of: Dr. Riley Alston M.D. First contact with patient: 09:44 Chief Complaint: DIZZY Stated Complaint: HEADACHE,EYES HURT,DIZZY,LIGHTHEADED,NAUSEA History of Present Illness The patient is a 36 year old male who presents to the Emergency Room with complaints of dizziness and pain beginning this morning at about 05:45 when waking up. The patient reports that he fell asleep last night with no symptoms, but states that when he woke up, he felt dizzy and lightheaded upon standing up. He states that he felt like he was going to fall due to these symptoms. The patient reports pain in his eyes towards the front, the forehead, the posterior left neck, and his back, although he notes the back pain is chronic. He rates his current pain as an 8/10 in severity. The patient reports that he is experiencing some nausea, but denies vomiting. He notes a current cold. He denies any tick bites, although he reports an itchy area on his right ankle. He denies diarrhea, and is not sure if he has a fever. The patient denies a history of migraines and states he has been drinking plenty of fluids. Source of History: patient Onset: 05:45 this morning upon waking up Position: head (forehead), eye (bilateral), neck, back, other (global dizziness) Symptom Intensity: 8/10 Quality: other (dizziness) Associated Symptoms: + nausea, No vomiting, No diarrhea Note: denies any tick bites Review of Systems See HPI for pertinent positives & negatives. A total of 10 systems reviewed and were otherwise negative. Past Medical & Surgical Medical Problems: (1) Anxiety disorder (2) Back pain (3) Back pain (4) Depression (5) Depressive disorder (6) Esophageal Reflux (7) GERD (gastroesophageal reflux disease) (8) Hand crush injury (9) Herniated disc (10) HTN (hypertension) (11) Left hand pain (12) Left shoulder pain (13) Musculoskeletal pain (14) Shoulder pain Surgical Problems: (1) H/O umbilical hernia repair (2) History of carpal tunnel release (3) History of carpal tunnel surgery of left wrist (4) History of herniorrhaphy (5) History of umbilical hernia repair (6) S/P carpal tunnel release Family History Diabetes mellitus MOTHER Gallbladder disease MOTHER Hypertension MOTHER Lung disease MOTHER Social History Smoking Status: Current Some Day Smoker Alcohol Use: occasionally Marital Status: Housing Status: lives with significant other Occupation Status: employed Current/Historical Medications Scheduled Carisoprodol (Soma), 350 MG PO QID Fish Oil ([place]-3), 1 CAP PO DAILY Fluoxetine (Prozac), 40 MG PO DAILY Gabapentin (Neurontin), 400 MG PO QID Hydrochlorothiazide (Hctz), 12.5 MG PO DAILY Lisinopril (Zestril), 20 MG PO DAILY Multivitamin (Multivitamin), 1 TAB PO DAILY Nortriptyline Hcl (Pamelor), 75 MG PO HS Omeprazole (Prilosec), 40 MG PO DAILY Scheduled PRN Albuterol Hfa (Ventolin Hfa), 2 PUFFS INH UD PRN for SOB/Wheezing Fluticasone Propionate (Nasal) (Flonase Allergy Relief), 1 SPRAY ANNY BID PRN for Allergy Symptoms Allergies Coded Allergies: NSAIDs (Unverified Allergy, Unknown, upset stomach, 10/05/17) Physical Exam Vital Signs Date Time Temp Pulse Resp B/P (MAP) Pulse Ox O2 Delivery O2 Flow Rate FiO2 10/05/17 12:58 52 18 118/63 98 Room Air 10/05/17 11:15 55 18 118/63 98 Room Air 10/05/17 10:19 56 18 108/68 98 Room Air 10/05/17 09:39 36.9 60 18 99 Room Air Physical Exam GENERAL: Patient is in no acute distress. HEENT: No acute trauma, normocephalic atraumatic, mucous membranes moist, no nasal congestion, no scleral icterus. No throat erythema or exudate. NECK: No stridor, no adenopathy, no meningismus, trachea is midline. Flexes chin to chest without difficulty. LUNGS: Clear to auscultation bilaterally, no wheeze, no rhonchi, breath sounds equal. HEART: Without murmurs gallops or rubs, regular rate and rhythm. ABDOMEN: Soft, nontender, bowel sounds positive, no hernias, no peritonitis. EXTREMITIES: No cyanosis or edema, full range of motion of all the joints without pain or difficulty, no signs for acute trauma. NEUROLOGIC: Oriented x 3, no acute motor or sensory deficits, no focal weakness. No cerebellar dysfunction. SKIN: No rash, no jaundice, no diaphoresis. Medical Decision & Procedures Laboratory Results 10/05/17 10:07 Red Blood Count 5.02, Mean Corpuscular Volume 86.7, Mean Corpuscular Hemoglobin 30.9, Mean Corpuscular Hemoglobin Concent 35.6, Mean Platelet Volume 9.1, Neutrophils (%) (Auto) 61.8, Lymphocytes (%) (Auto) 25.1, Monocytes (%) (Auto) 6.7, Eosinophils (%) (Auto) 5.1, Basophils (%) (Auto) 0.9, Neutrophils # (Auto) 2.76, Lymphocytes # (Auto) 1.12, Monocytes # (Auto) 0.30, Eosinophils # (Auto) 0.23, Basophils # (Auto) 0.04 10/05/17 10:07 Test 10/05/17 10:07 White Blood Count 4.47 K/uL (4.8-10.8) Red Blood Count 5.02 M/uL (4.7-6.1) Hemoglobin 15.5 g/dL (14.0-18.0) Hematocrit 43.5 % (42-52) Mean Corpuscular Volume 86.7 fL (80-100) Mean Corpuscular Hemoglobin 30.9 pg (25-34) Mean Corpuscular Hemoglobin Concent 35.6 g/dl (32-36) Platelet Count 225 K/uL (130-400) Mean Platelet Volume 9.1 fL (7.4-10.4) Neutrophils (%) (Auto) 61.8 % Lymphocytes (%) (Auto) 25.1 % Monocytes (%) (Auto) 6.7 % Eosinophils (%) (Auto) 5.1 % Basophils (%) (Auto) 0.9 % Neutrophils # (Auto) 2.76 K/uL (1.4-6.5) Lymphocytes # (Auto) 1.12 K/uL (1.2-3.4) Monocytes # (Auto) 0.30 K/uL (0.11-0.59) Eosinophils # (Auto) 0.23 K/uL (0-0.5) Basophils # (Auto) 0.04 K/uL (0-0.2) RDW Standard Deviation 40.5 fL (36.4-46.3) RDW Coefficient of Variation 12.7 % (11.5-14.5) Immature Granulocyte % (Auto) 0.4 % Immature Granulocyte # (Auto) 0.02 K/uL (0.00-0.02) Urine Color YELLOW Urine Appearance CLEAR (CLEAR) Urine pH >= 9.0 (4.5-7.5) Urine Specific [place] 1.013 (1.000-1.030) Urine Protein NEG (NEG) Urine Glucose (UA) NEG (NEG) Urine Ketones NEG (NEG) Urine Occult Blood NEG (NEG) Urine Nitrite NEG (NEG) Urine Bilirubin NEG (NEG) Urine Urobilinogen NEG (NEG) Urine Leukocyte Esterase NEG (NEG) Anion Gap 6.0 mmol/L (3-11) Est Creatinine Clear Calc Drug Dose 149.1 ml/min Estimated GFR () 130.9 Estimated GFR (Non- 113.0 BUN/Creatinine Ratio 13.8 (10-20) Calcium Level 9.2 mg/dl (8.5-10.1) Magnesium Level 2.0 mg/dl (1.8-2.4) Total Bilirubin 0.6 mg/dl (0.2-1) Aspartate Amino Transf (AST/SGOT) 25 U/L (15-37) Alanine Aminotransferase (ALT/SGPT) 37 U/L (12-78) Alkaline Phosphatase 65 U/L (45-117) Total Protein 7.8 gm/dl (6.4-8.2) Albumin 4.1 gm/dl (3.4-5.0) Globulin 3.7 gm/dl (2.5-4.0) Albumin/Globulin Ratio 1.1 (0.9-2) Thyroid Stimulating Hormone (TSH) 0.470 uIu/ml (0.300-4.500) Lyme Disease IgG Antibody NEG (NEG) Lyme Disease IgM Antibody NEG (NEG) Laboratory results reviewed by me. Medications Administered Medications (Trade) Dose Ordered Sig/Diego Route Start Time Stop Time Status Last Admin Dose Admin Ondansetron HCl (Zofran Inj) 4 mg NOW STAT IV 10/05/17 09:46 10/05/17 09:51 DC 10/05/17 10:14 4 MG Sodium Chloride 1,000 ml @ 999 mls/hr Q1H1M STAT IV 10/05/17 09:46 10/05/17 10:46 DC 10/05/17 10:15 999 MLS/HR Acetaminophen (Tylenol Tab) 1,000 mg NOW STAT PO 10/05/17 09:46 10/05/17 09:51 DC 10/05/17 10:14 1,000 MG Diphenhydramine HCl (Benadryl Inj) 50 mg NOW STAT IV 10/05/17 09:46 10/05/17 09:51 DC 10/05/17 10:14 50 MG Prochlorperazine Edisylate 10 mg/ Syringe 10 ml @ 5 mls/min NOW STAT IV 10/05/17 09:46 10/05/17 09:51 DC 10/05/17 10:14 5 MLS/MIN ED Course 0945: The patient was evaluated in room A12B. A complete history and physical exam was performed. 0946: Ordered Prochlorperazine Edisylate 10 mg/Syringe 10 ml @ 5 mls/min IV, Benadryl 50 mg IV, Tylenol 1000 mg PO, Sodium Chloride 1000 ml @ 999 mls/hr IV, Zofran 4 mg IV 1251: Reevaluated the patient, who is currently feeling better. Discussed results and discharge instructions: he verbalized understanding and agreement. The patient is ready for discharge. Medical Decision Differential diagnosis: viral illness, lyme disease, electrolyte imbalance, dehydration, migraine headache, pharyngitis, intracranial bleeding, stroke, meningitis, pneumonia There is no leukocytosis or concerning anemia. No significant electrolyte abnormality, kidney failure or hepatitis. Urinalysis does not show infection. Lyme disease testing is negative. Patient appears to be in a euthyroid state. On exam, the patient was not febrile or toxic. No focal neurologic findings. There is no cellulitis, his lungs were clear. The patient received IV saline, IV Compazine, IV Benadryl, IV Zofran and oral Tylenol. He is doing well, he is feeling improved. Patient likely has a viral illness causing his symptoms. No findings to suggest the need for antibiotic therapy. He does not appear septic. Patient is being discharged to continue [id number]-[id number] meds for his symptoms, hydration and rest were encouraged. He was given some time off of work, if worsening, he can return. Medication Reconcilliation Current Medication List: was personally reviewed by me Blood Pressure Screening Patient's blood pressure: Normal blood pressure Blood pressure disposition: Did not require urgent referral Impression Primary Impression: Dizziness Additional Impressions: Headache Body aches Weakness Scribe Attestation The scribe's documentation has been prepared under my direction and personally reviewed by me in its entirety. I confirm that the note above accurately reflects all work, treatment, procedures, and medical decision making performed by me. Departure Information Dispostion Home / Self-Care Referrals Candelaria Flores, C.R.N.P. (PCP) Forms HOME CARE DOCUMENTATION FORM, IMPORTANT VISIT INFORMATION Patient Instructions My [facility] Additional Instructions fluids rest tylenol for aches and fever no work for the next 2 days return for worsening symptoms or if not improving Problem Qualifiers
[2017-10-05 10:17] LABS: BASO % 0.9 %; BASO ABS # 0.04 K/uL (0-0.2); EOS % 5.1 %; EOS ABS # 0.23 K/uL (0-0.5); HEMATOCRIT 43.5 % (42-52); HEMOGLOBIN 15.5 g/dL (14.0-18.0); IG# 0.02 K/uL (0.00-0.02); LYMPH % 25.1 %; LYMPH ABS # 1.12 K/uL (1.2-3.4); MEAN CELL VOLUME 86.7 fL (80-100); MEAN CORPUSCULAR HEMOGLOBIN 30.9 pg (25-34); MEAN CORPUSCULAR HGB CONC 35.6 g/dl (32-36); MEAN PLATELET VOLUME 9.1 fL (7.4-10.4); MONO % 6.7 %; NEUT % 61.8 %; NEUT ABS # 2.76 K/uL (1.4-6.5); PLATELET COUNT 225 K/uL (130-400); RED CELL DISTRIBUTION WIDTH CV 12.7 % (11.5-14.5); RED CELL DISTRIBUTION WIDTH SD 40.5 fL (36.4-46.3); WHITE BLOOD COUNT 4.47 K/uL (4.8-10.8)
[2017-10-05 11:09] LABS: ALBUMIN 4.1 gm/dl (3.4-5.0); CALCIUM 9.2 mg/dl (8.5-10.1); CREATININE 0.82 mg/dl (0.60-1.40); POTASSIUM 4.1 mmol/L (3.5-5.1); TOTAL PROTEIN 7.8 gm/dl (6.4-8.2)
[2017-10-05 12:58] VITALS: BP 118/63; PULSE 52; O2SAT 98
== END 2017-10-05 13:21 | disposition home or self-care (01) ==
LOC: C.EDB 09:38 → C.EDA 13:21
DX: R42 Dizziness and giddiness (principal); R51 Headache; R53.1 Weakness; M54.9 Dorsalgia, unspecified; G89.29 Other chronic pain; F41.9 Anxiety disorder, unspecified; F32.9 Major depressive disorder, single episode, unspecified; K21.9 Gastro-esophageal reflux disease without esophagitis; I10 Essential (primary) hypertension; F17.210 Nicotine dependence, cigarettes, uncomplicated; Z83.3 Family history of diabetes mellitus; Z83.79 Family history of other diseases of the digestive system; Z82.49 Family history of ischemic heart disease and other diseases of the circulatory system; Z83.6 Family history of other diseases of the respiratory system

== ENCOUNTER 2020-03-25 15:23 | Observation (INO) ==
[2020-03-25] MEDS ORDERED: PIPERACILLIN/TAZOBACTAM 4.5 GM/120 ML BAG IV ONE (15:55)
[2020-03-25 16:09] LABS: Basophils # (auto) 0.03 K/uL (0-0.2); Basophils % (auto) 0.6 %; Eosinophils # (auto) 0.16 K/uL (0-0.5); Hematocrit (blood only) 42.9 % (42-52); Hemoglobin 15.4 g/dL (14.0-18.0); Immature Granulocytes # (auto) 0.01 K/uL (0.00-0.02); Immature Granulocytes % (auto) 0.2 %; Lymphocytes % (auto) 20.6 %; Mean Corpuscular Hgb Conc 35.9 g/dL (32-36); Mean Corpuscular Volume 89.2 fL (80-100); Mean Platelet Volume 9.4 fL (7.4-10.4); Monocytes # (auto) 0.24 K/uL (0.11-0.59); Monocytes % (auto) 4.5 %; Neutrophils % (auto) 71.1 %; Platelet Count 279 K/uL (130-400); RDW Coefficient of Variation 12.5 % (11.5-14.5); Red Blood Count 4.81 M/uL (4.7-6.1); White Blood Count 5.34 K/uL (4.8-10.8)
--- NOTE | 2020-03-25 16:14 | Emergency Department Note ---
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 Patient states he was seen in the emergency department 3 times over the past week as well as his PCP twice for elbow infection. He states late last month, he was seen in the emergency department for a laceration to the left index finger. He reports this was repaired and he was doing well. He was then seen in the emergency department 4 days ago for suture removal. He was told that the sutures looked good, but they were not quite ready to be removed yet. At that time, he was also complaining of redness, swelling, and pain in the left elbow. He states he came back the next day due to worsening swelling, pain, and redness in the left elbow. The patient states at that time, he had labs, IV antibiotics, and x-ray performed. He was discharged home to continue taking the Keflex and doxycycline was added as well. He followed up with his PCP yesterday for recheck. He states things seem to be doing well at that time. Today, he notes ongoing worsening redness and swelling with worsening pain. He contacted his PCP and was referred to the emergency department for admission for IV antibiotics. The patient states his PCP wanted to have him direct admitted, but was unable due to the COVID-19 pandemic. Patient denies any decreased range of motion of the elbow. He denies any fever or lymphangitic streaking. No body aches, chills, nausea, vomiting, or other systemic symptoms. He does report some pus which seems to have accumulated under the skin in the area of the left index finger laceration. He does have some pain in this area as well but maintains full range of motion. Patient has not followed up with orthopedics. He denies any numbness or tingling. He does rate his pain a 10/10 with palpation of the elbow. He has taken no medications for his pain. Home Medications Medication Instructions Recorded Confirmed Type gabapentin 400 mg PO QID 11/07/17 03/25/20 History omeprazole 40 mg PO QAM 11/07/17 03/25/20 History carisoprodol [Soma] 350 mg PO QID 03/31/18 03/25/20 History fluticasone propionate [Flonase 2 spray INTRANASAL BID 03/31/18 03/25/20 History Allergy Relief] albuterol sulfate 2 puff INHALATION Q6H PRN 06/02/18 03/25/20 History lisinopril-hydrochlorothiazide 1 tab PO QAM 06/02/18 03/25/20 History fluoxetine 40 mg PO QAM 06/22/18 03/25/20 History metoprolol succinate 12.5 mg PO QAM 06/22/18 03/25/20 History omega-3 fatty acids [Fish Oil 1,000 mg PO QAM 11/24/19 03/25/20 History Concentrate] turmeric 400 mg PO DAILY 11/24/19 03/25/20 History zinc acetate 50 mg PO DAILY 11/24/19 03/25/20 History ascorbic acid (vitamin C) [Vitamin 1,500 mg PO QAM 12/08/19 03/25/20 History C] cholecalciferol (vitamin D3) 1,000 mcg PO QAM 12/08/19 03/25/20 History [Vitamin D3] fexofenadine 180 mg PO QAM 03/12/20 03/25/20 History cephalexin 500 mg PO QID 03/23/20 03/25/20 History doxycycline hyclate 100 mg PO Q12H 9 Days #18 cap 03/23/20 03/25/20 Rx oxycodone [Roxicodone] 5 mg PO Q6H PRN 03/25/20 03/25/20 History Allergies Allergy/AdvReac Type Severity Reaction Status Date / Time NSAIDS (Non-Steroidal AdvReac Intermediate Upset Verified 03/25/20 15:57 Anti-Inflamma stomach Past Med/Surg History Medical History (Updated 03/25/20 @ 17:35 by Nupur Monzon PA-C) Anxiety disorder Degenerative disc disease NECK/LOWER BACK Depressive disorder Gastritis GERD (gastroesophageal reflux disease) Headache Hiatal hernia HX HTN (hypertension) Musculoskeletal pain Obesity Osteoarthritis Scoliosis Sleep disorder, shift work Temporomandibular joint disorder CLICKS LEFT SIDE-HAS NEVER LOCKED Surgical History H/O umbilical hernia repair History of carpal tunnel surgery of left wrist History of carpal tunnel surgery of right wrist 04/2019 [facility] [place] History of esophagogastroduodenoscopy (EGD) S/P Achilles tendon repair LEFT Status post debridement of bone spur Family History Mother Hypertension Grandmother (Maternal) Diabetes Other Gallbladder disease Lung disease No family history of adverse response to anesthesia No family history of bleeding disorder Sinusitis Social History Smoking Status: Current every day smoker Tobacco Type: Cigarettes Cigarettes Per Day: 1-2 CIGS A DAY-NOT EVERY DAY; Second Hand Exposure: Yes; Hx Alcohol Use: Yes Alcohol type: other Hx Substance Use: No Preferred Language: Cuban Communication Ability: Effective Visual Impairment: No Limitations Hearing Ability: Normal Bpm Architect Required: No Beliefs That Will Affect Care: None marital status: marital status details: Current Living Situation: Spouse and Family current occupational status: employed current occupation: [employer] Feels Safe at Home: Yes Assistive Devices: None Review of Systems A total of 10 systems reviewed and were otherwise negative Physical Exam Vital Signs Vital Signs - 24 hr 03/25/20 15:26 Temperature 36.3 C L Temperature Source Oral Pulse Rate 88 Respiratory Rate 16 Blood Pressure 143/85 H Blood Pressure Mean 104 Pulse Oximetry 97 Oxygen Delivery Method Room Air Sepsis Recent Fever Within 48 Hours No Sepsis New/Unexplained Change in Mental Status N/A Sepsis Action Taken by Nursing No Action Required VITALS: Vitals are noted on the nurse's note and reviewed by myself. Patient is afebrile and not tachycardic. BP 143/85. Respiratory rate 16, O2 saturation 97% on room air. GENERAL: This is a 39-year-old white male, in no acute distress, nondiaphoretic, well-developed well-nourished. SKIN: Erythema and edema without significant fluctuance noted in the left elbow. There is extreme tenderness to palpation of this area. There is induration and pus noted under the superficial layer of skin on the laceration of the left index finger. No surrounding erythema. There is mild edema of the digit. Otherwise the skin was without rashes, erythema, edema, or bruising. There is no tenting of the skin. Capillary refill less than 2 seconds. HEAD: Normocephalic atraumatic. EYES: Conjunctivae without injection, sclerae without icterus. NECK: Supple without nuchal rigidity. No lymphadenopathy. No JVD. HEART: Regular rate and rhythm without murmurs gallops or rubs. LUNGS: Clear to auscultation bilaterally without wheezes, rales or rhonchi. No retractions or accessory muscle use. MUSCULOSKELETAL: No muscle atrophy, erythema, or edema except as noted. Tenderness with range of motion of the left elbow and left index finger. No decreased range of motion in these joints. No tenderness to palpation except as noted. Normal gait. Strength 5/5 throughout. NEURO: Patient was alert and oriented to person place and time. Normal sensation to light and sharp touch. Deep tendon reflexes 2+ throughout. No focal neurological deficits. Course Course The patient was seen and evaluated as above. Previous records reviewed. An order was placed for continuous cardiac monitoring. The monitor shows a normal sinus rhythm at a rate of 88 bpm. I discussed the case with my attending physician. I discussed the case with ANISHA Cox with the [facility] hospitalist group. He did agree to see and evaluate the patient. Labs reviewed by myself. Please see hospitalist dictation regarding okay management care of this patient. Administered Medications Discontinued Medications Piperacillin Sod/Tazobactam Sod (Zosyn) 4.5 gm in 120 mls @ 240 mls/hr IV NOW ONE Stop: 03/25/20 16:24 Last Infusion: 03/25/20 17:22 Dose: 0 mls/hr Documented by: [id number] Admin: 03/25/20 16:14 Dose: 240 mls/hr Documented by: [id number] Medical Decision Making Differential Diagnosis Cellulitis, abscess, MRSA infection, DVT, bursitis, necrotizing fasciitis, dermatitis, drug eruption, allergic reaction, as well as other pathologies. Medical Records Attestation: I reviewed the patient's medical records. Home Medications Current Medication List: was personally reviewed by me Laboratory Data Attestation: I reviewed the patient's lab results. Inflammatory markers elevated with an ESR of 40, CRP 6.7. No leukocytosis. No anemia or thrombocytopenia. Coags normal. Procalcitonin less than 0.05. Lyme disease testing negative. Result diagrams: 03/25/20 15:57 03/25/20 15:57 Lab Results 03/25/20 03/25/20 03/25/20 Range/Units 15:57 15:57 15:57 WBC 5.34 (4.8-10.8) K/uL RBC 4.81 (4.7-6.1) M/uL Hgb 15.4 (14.0-18.0) g/dL Hct 42.9 (42-52) % MCV 89.2 (80-100) fL MCH 32.0 (25-34) pg MCHC 35.9 (32-36) g/dL RDW Std Deviation 41.0 (36.4-46.3) fL RDW Coeff of Panfilo 12.5 (11.5-14.5) % Plt Count 279 (130-400) K/uL MPV 9.4 (7.4-10.4) fL Immature Gran % (Auto) 0.2 % Neut % (Auto) 71.1 % Lymph % (Auto) 20.6 % [place] % (Auto) 4.5 % Eos % (Auto) 3.0 % Baso % (Auto) 0.6 % Neut # (Auto) 3.80 (1.4-6.5) K/uL Lymph # (Auto) 1.10 L (1.2-3.4) K/uL [place] # (Auto) 0.24 (0.11-0.59) K/uL Eos # (Auto) 0.16 (0-0.5) K/uL Baso # (Auto) 0.03 (0-0.2) K/uL Immature Gran # (Auto) 0.01 (0.00-0.02) K/uL ESR 40 H (0-14) mm/hr PT 10.6 (9.0-12.0) Seconds INR 1.0 (0.9-1.1) APTT 29.3 (21.0-31.0) Seconds PTT Ratio 1.1 Sodium (136-145) mmol/L Potassium (3.5-5.1) mmol/L Chloride (98-107) mmol/L Carbon Dioxide (21-32) mmol/L Anion Gap (3-11) BUN (7-18) mg/dl Creatinine (0.6-1.4) mg/dl Est Cr Clr Drug Dosing ml/min Est GFR ( Amer) Est GFR (Non-Af Amer) BUN/Creatinine Ratio (10-20) Glucose (70-99) mg/dl Calcium (8.5-10.1) mg/dl Total Bilirubin (0.2-1) mg/dl AST (15-37) U/L ALT (12-78) U/L Alkaline Phosphatase (45-117) U/L C-Reactive Protein (0-0.29) mg/dl Total Protein (6.4-8.2) gm/dl Albumin (3.4-5.0) gm/dl Globulin (2.5-4.0) gm/dl Albumin/Globulin Ratio (0.9-2) Procalcitonin (0-0.5) ng/ml Lyme Disease IgG Ab (Negative) Lyme Disease IgM Ab (Negative) COVID-19 Eval Order SARS-CoV-2, RNA, NAAT (NEGATIVE) 03/25/20 03/25/20 03/25/20 Range/Units 15:57 15:57 15:57 WBC (4.8-10.8) K/uL RBC (4.7-6.1) M/uL Hgb (14.0-18.0) g/dL Hct (42-52) % MCV (80-100) fL MCH (25-34) pg MCHC (32-36) g/dL RDW Std Deviation (36.4-46.3) fL RDW Coeff of Panfilo (11.5-14.5) % Plt Count (130-400) K/uL MPV (7.4-10.4) fL Immature Gran % (Auto) % Neut % (Auto) % Lymph % (Auto) % [place] % (Auto) % Eos % (Auto) % Baso % (Auto) % Neut # (Auto) (1.4-6.5) K/uL Lymph # (Auto) (1.2-3.4) K/uL [place] # (Auto) (0.11-0.59) K/uL Eos # (Auto) (0-0.5) K/uL Baso # (Auto) (0-0.2) K/uL Immature Gran # (Auto) (0.00-0.02) K/uL ESR (0-14) mm/hr PT (9.0-12.0) Seconds INR (0.9-1.1) APTT (21.0-31.0) Seconds PTT Ratio Sodium 136 (136-145) mmol/L Potassium 3.9 (3.5-5.1) mmol/L Chloride 104 (98-107) mmol/L Carbon Dioxide 25 (21-32) mmol/L Anion Gap 7.0 (3-11) BUN 11 D (7-18) mg/dl Creatinine 0.74 (0.6-1.4) mg/dl Est Cr Clr Drug Dosing 161.9 ml/min Est GFR ( Amer) 133.7 Est GFR (Non-Af Amer) 115.4 BUN/Creatinine Ratio 15.1 (10-20) Glucose 96 (70-99) mg/dl Calcium 10.2 H (8.5-10.1) mg/dl Total Bilirubin 0.6 (0.2-1) mg/dl AST 16 (15-37) U/L ALT 31 (12-78) U/L Alkaline Phosphatase 71 (45-117) U/L C-Reactive Protein 6.70 H (0-0.29) mg/dl Total Protein 8.3 H (6.4-8.2) gm/dl Albumin 4.3 (3.4-5.0) gm/dl Globulin 4.0 (2.5-4.0) gm/dl Albumin/Globulin Ratio 1.1 (0.9-2) Procalcitonin < 0.05 (0-0.5) ng/ml Lyme Disease IgG Ab Negative (Negative) Lyme Disease IgM Ab Negative (Negative) COVID-19 Eval Order SARS-CoV-2, RNA, NAAT (NEGATIVE) 03/25/20 03/25/20 Range/Units 16:16 16:16 WBC (4.8-10.8) K/uL RBC (4.7-6.1) M/uL Hgb (14.0-18.0) g/dL Hct (42-52) % MCV (80-100) fL MCH (25-34) pg MCHC (32-36) g/dL RDW Std Deviation (36.4-46.3) fL RDW Coeff of Panfilo (11.5-14.5) % Plt Count (130-400) K/uL MPV (7.4-10.4) fL Immature Gran % (Auto) % Neut % (Auto) % Lymph % (Auto) % [place] % (Auto) % Eos % (Auto) % Baso % (Auto) % Neut # (Auto) (1.4-6.5) K/uL Lymph # (Auto) (1.2-3.4) K/uL [place] # (Auto) (0.11-0.59) K/uL Eos # (Auto) (0-0.5) K/uL Baso # (Auto) (0-0.2) K/uL Immature Gran # (Auto) (0.00-0.02) K/uL ESR (0-14) mm/hr PT (9.0-12.0) Seconds INR (0.9-1.1) APTT (21.0-31.0) Seconds PTT Ratio Sodium (136-145) mmol/L Potassium (3.5-5.1) mmol/L Chloride (98-107) mmol/L Carbon Dioxide (21-32) mmol/L Anion Gap (3-11) BUN (7-18) mg/dl Creatinine (0.6-1.4) mg/dl Est Cr Clr Drug Dosing ml/min Est GFR ( Amer) Est GFR (Non-Af Amer) BUN/Creatinine Ratio (10-20) Glucose (70-99) mg/dl Calcium (8.5-10.1) mg/dl Total Bilirubin (0.2-1) mg/dl AST (15-37) U/L ALT (12-78) U/L Alkaline Phosphatase (45-117) U/L C-Reactive Protein (0-0.29) mg/dl Total Protein (6.4-8.2) gm/dl Albumin (3.4-5.0) gm/dl Globulin (2.5-4.0) gm/dl Albumin/Globulin Ratio (0.9-2) Procalcitonin (0-0.5) ng/ml Lyme Disease IgG Ab (Negative) Lyme Disease IgM Ab (Negative) COVID[facility]19 [facility] SARS-[facility], RNA, NAAT NEGATIVE (NEGATIVE) Blood Pressure Blood Pressure Findings: Elevated blood pressure Blood Pressure Disposition: elevated BP felt to be situational MDM Narrative This 39-year-old male patient presents to the emergency department today for evaluation of ongoing and spreading redness and pain in the left elbow. He is being treated with p.o. antibiotics and did receive a dose of Rocephin earlier this week due to the infection. Patient was referred here by his primary care provider. No leukocytosis. The redness has seemed to continue to spread. He is afebrile and no systemic symptoms. Given his failed outpatient treatment had referral from primary care for admission for IV antibiotics, the patient will be admitted to the medicine service. Please see hospitalist dictation regarding ongoing management care of this patient. The chart was completed utilizing [employer] Speech voice recognition software. Grammatical errors, random word insertions, pronoun errors, and incomplete sentences are an occasional consequence of this system due to software limitations, ambient noise, and hardware issues. Any formal questions or concerns about the content, text, or information contained within the body of this dictation should be directly addressed to the provider for clarification. 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 DOC REF ED Provider: Maury Floyd ED Midlevel Provider: Nupur Monzon Discharge Problem: Cellulitis of left elbow, Laceration of left index finger w/o foreign body w/o damage to nail Patient Disposition: Admitted As Inpatient Forms Stand Alone Forms: [facility] Prescriptions Prescriptions: No Action fluoxetine 40 mg capsule 40 mg PO QAM RF: 0 metoprolol succinate 25 mg tablet extended release 24 hr 12.5 mg PO QAM RF: 0 zinc acetate 50 mg (zinc) Capsule 50 mg PO DAILY RF: 0 omega-3 fatty acids [Fish Oil Concentrate] 1,000 mg Capsule 1,000 mg PO QAM RF: 0 turmeric 400 mg Capsule 400 mg PO DAILY RF: 0 ascorbic acid (vitamin C) [Vitamin C] 500 mg Tablet,Chewable 1,500 mg PO QAM RF: 0 cholecalciferol (vitamin D3) [Vitamin D3] 25 mcg (1,000 unit) Capsule 1,000 mcg PO QAM RF: 0 fexofenadine 180 mg tablet 180 mg PO QAM RF: 0 gabapentin 400 mg Capsule 400 mg PO QID RF: 0 omeprazole 40 mg Capsule,Delayed Release(Dr/Ec) 40 mg PO QAM RF: 0 carisoprodol [Soma] 350 mg Tablet 350 mg PO QID RF: 0 fluticasone propionate [Flonase Allergy Relief] 50 mcg/actuation [place],Suspension 2 spray INTRANASAL BID RF: 0 lisinopril-hydrochlorothiazide 20-25 mg tablet 1 tab PO QAM RF: 0 albuterol sulfate 90 mcg/actuation HFA aerosol inhaler 2 puff inhalation Q6H PRN (Reason: Shortness Of Breath Or Wheezing) RF: 0 cephalexin 500 mg capsule 500 mg PO QID RF: 0 doxycycline hyclate 100 mg capsule 100 mg PO Q12H 9 Days Qty: 18 RF: 0 oxycodone [Roxicodone] 5 mg tablet 5 mg PO Q6H PRN (Reason: Pain) RF: 0 Referrals Referrals: Candelaria Flores CRNP [Primary Care Provider] - Discharge Problem: Laceration of left index finger w/o foreign body w/o damage to nail Qualifiers: Encounter type: sequela Qualified Code(s): S61.211S - Laceration without fore ign body of left index finger without damage to nail, sequela
[2020-03-25 16:20] LABS: Partial Thromboplastin Ratio 1.1; Partial Thromboplastin Time 29.3 Seconds (21.0-31.0); Prothrombin Time 10.6 Seconds (9.0-12.0)
[2020-03-25 16:37] LABS: Albumin Level 4.3 gm/dl (3.4-5.0); BUN Creatinine Ratio 15.1 (10-20); Calcium 10.2 mg/dl (8.5-10.1); Creatinine Clr Calc Pharmacy 161.9 ml/min; Est GFR (African American) 133.7; Est GFR (Non-African American) 115.4; Potassium 3.9 mmol/L (3.5-5.1)
[2020-03-25 16:39] LABS: Albumin Globulin Ratio 1.1 (0.9-2); Bilirubin,Total 0.6 mg/dl (0.2-1); C Reactive Protein 6.7 mg/dl (0-0.29); Total Protein 8.3 gm/dl (6.4-8.2)
--- NOTE | 2020-03-25 17:01 | History & Physical Report ---
Date of Service March 25, 2020 Assessment & Plan (1) Cellulitis of elbow: Cellulitis vs. Bursitis - No fluid collection seen with bedside ultrasound or with physical exam - erythema and tenderness to superficial skin proximal and distal to elbow - Lymphnodes tender and enlarged to left axillary - No leukocytosis, elevated CRP, ESR, PCT pending.----> ESR has increased and CRP has decreased since addition of doxy on Mar 22 - LRINEC score of 0 - No other evidence of organ dysfunction - Clindamycin 900 and Vancomycin for coverage - Blood cultures pending - Uric Acid pending (2) Finger laceration: stable no acute needs, drainage cultured by EMD (3) GERD (gastroesophageal reflux disease): Continue omeprazole no acute needs (4) HTN (hypertension): Hold meds tonight, restart in morning, (5) Asthma: Unable to find follow up or managment of inhalers, however patient continues to smoke. Continue Albuterol and flonase intranasal for chronic sinusits. (6) DVT prophylaxis: SCDs. History of Present Illness Primary Care Provider: ANISHA Gilmore 39 YOM, with past medical history of Asthma, HTN, HLD, and originally cut his left finger on Mar 11 at work and had sutures placed, recently had those out on 24Mar2020. Today he presents to the emergency room after being seen on the Mar 22 for acute onset erythema, pain, to left elbow that is associated with fevers per patient. The patient was diagnosed with olecranon bursitis by his family provider. Came to the [facility] on Mar 22 to get his prescription filled, and was discharged on Keflex, Oxy, Ibuprofen, and Tylenol. On Mar 23, the patient returned back to the [facility] for complaints of swelling and pain to the left elbow. The area was marked with a skin marker, imaging was performed that showed no foreign body, he was given a dose of Rocephin IV and added on Doxycycline to his Keflex and discharged. The patient denies any trauma to the site, does lean on the elbow frequently at work. Denies any animal bites, or open areas to the elbow. Exam reveals no Nidus of entry. Lives at home and has cats as pets. No recent travel. Patient will be admitted for IV antibiotics and monitor for 24- 48 hours for clinical response. Allergies Allergy/AdvReac Type Severity Reaction Status Date / Time NSAIDS (Non-Steroidal AdvReac Intermediate Upset Verified 03/25/20 15:57 Anti-Inflamma stomach Home Medications Medication Instructions Recorded Confirmed Type gabapentin 400 mg PO QID 11/07/17 03/25/20 History omeprazole 40 mg PO QAM 11/07/17 03/25/20 History carisoprodol [Soma] 350 mg PO QID 03/31/18 03/25/20 History fluticasone propionate [Flonase 2 spray INTRANASAL BID 03/31/18 03/25/20 History Allergy Relief] albuterol sulfate 2 puff INHALATION Q6H PRN 06/02/18 03/25/20 History lisinopril-hydrochlorothiazide 1 tab PO QAM 06/02/18 03/25/20 History fluoxetine 40 mg PO QAM 06/22/18 03/25/20 History metoprolol succinate 12.5 mg PO QAM 06/22/18 03/25/20 History omega-3 fatty acids [Fish Oil 1,000 mg PO QAM 11/24/19 03/25/20 History Concentrate] turmeric 400 mg PO DAILY 11/24/19 03/25/20 History zinc acetate 50 mg PO DAILY 11/24/19 03/25/20 History ascorbic acid (vitamin C) [Vitamin 1,500 mg PO QAM 12/08/19 03/25/20 History C] cholecalciferol (vitamin D3) 1,000 mcg PO QAM 12/08/19 03/25/20 History [Vitamin D3] fexofenadine 180 mg PO QAM 03/12/20 03/25/20 History cephalexin 500 mg PO QID 03/23/20 03/25/20 History doxycycline hyclate 100 mg PO Q12H 9 Days #18 cap 03/23/20 03/25/20 Rx oxycodone [Roxicodone] 5 mg PO Q6H PRN 03/25/20 03/25/20 History Past Med/Surg History Medical History Anxiety disorder Degenerative disc disease NECK/LOWER BACK Depressive disorder Gastritis GERD (gastroesophageal reflux disease) Headache Hiatal hernia HX HTN (hypertension) Musculoskeletal pain Obesity Osteoarthritis Scoliosis Sleep disorder, shift work Temporomandibular joint disorder CLICKS LEFT SIDE-HAS NEVER LOCKED Surgical History H/O umbilical hernia repair History of carpal tunnel surgery of left wrist History of carpal tunnel surgery of right wrist 04/2019 [facility] [place] History of esophagogastroduodenoscopy (EGD) S/P Achilles tendon repair LEFT Status post debridement of bone spur Family History Mother Hypertension Grandmother (Maternal) Diabetes Other Gallbladder disease Lung disease No family history of adverse response to anesthesia No family history of bleeding disorder Sinusitis Social History Smoking Status: Current every day smoker Tobacco Type: Cigarettes Cigarettes Per Day: 1-2 CIGS A DAY-NOT EVERY DAY; Second Hand Exposure: Yes; Hx Alcohol Use: Yes Alcohol type: other Hx Substance Use: No Preferred Language: Yi Communication Ability: Effective Visual Impairment: No Limitations Hearing Ability: Normal 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: No Beliefs That Will Affect Care: None marital status: marital status details: Current Living Situation: Spouse and Family current occupational status: employed 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 Feels Safe at Home: Yes Assistive Devices: None Review of Systems Review of Systems: REVIEW OF SYSTEMS: Constitutional: (+) fever, sweats or chills last reported was Tuesday Eyes: No diplopia, no worsening or blurred vision ENT: normal hearing, no trouble swallowing Respiratory: No cough, sputum, dyspnea at rest or on exertion Cardiovascular: No chest pain, tightness or palpitations Abdomen: No pain, nausea, vomiting, diarrhea or constipation Musculoskeletal: (+) per HPI No joint pain, calf pain, swelling Neurologic: No weakness, numbness/tingling, or balance problems Psychiatric: No anxiety or depression Skin: (+) per HPI No rash or itch Physical Exam Physical Exam: PHYSICAL EXAM: General: awake, alert, no apparent distress Head: Normocephalic, atraumatic ENT: PERRL, EOMI, no pharyngeal exudate, mucous membranes moist Neuro: AAO x 3, speech clear and appropriate, strength intact bilaterally 5/5, sensation intact and equal all extremities Chest: equal rise and fall of the chest, no accessory muscle use, no heaves or thrills, Clear to auscultation, on room air, Cardiac: Regular rate and rhythm, telemetry reviewed, skin warm dry, cap refill <3 seconds, peripheral pulses +2 no JVD, no murmur. GI: NABS x 4 quadrants, soft, nontender to palpation, no rebound, guarding or tenderness : Spontaneously voiding, no pain, no CVA tenderness, Extremities: Normal inspection, no peripheral edema or erythema, calfs nontender to palpation Psych: Normal mood and affect Skin/musculoskeletal: erythema to left elbow, tracks proximally and distally from joint, lymph nodes enlarged to lt axillae, tenderness to shoulder. Full ROM to wrist and shoulder. Results & Data Results & Data ([facility]) Vital Signs (Past 12 Hours) Vital Signs Temp Pulse Resp BP Pulse Ox 03/25/20 15:26 36.3 C L 88 16 143/85 H 97 Laboratory Results Abnormal lab results 03/25/20 03/25/20 03/25/20 Range/Units 15:57 15:57 15:57 Lymph # (Auto) 1.10 L (1.2-3.4) K/uL ESR 40 H (0-14) mm/hr Calcium 10.2 H (8.5-10.1) mg/dl C-Reactive Protein 6.70 H (0-0.29) mg/dl Total Protein 8.3 H (6.4-8.2) gm/dl Diagnostic Findings XR elbow LT min 3V routine CLINICAL HISTORY: L elbow erythema, edema, overlying bursa COMPARISON: None FINDINGS: Alignment of the left elbow is anatomic. There is no acute fracture. There is no joint effusion. Note is made of soft tissue swelling overlying the olecranon. No radiopaque foreign bodies identified. There is minimal spurring of the olecranon. IMPRESSION: 1. No acute fracture or joint effusion of the left elbow. 2. Soft tissue swelling overlying the olecranon. This may reflect olecranon bursitis or cellulitis. Medications Administered Discontinued Medications Piperacillin Sod/Tazobactam Sod (Zosyn) 4.5 gm in 120 mls @ 240 mls/hr IV NOW ONE Stop: 03/25/20 16:24 Last Admin: 03/25/20 16:14 Dose: 240 mls/hr Documented by: [id number] PG Care Time/CCT Total # of Minutes Spent Total Time Spent with Patient: Total time spent is greater than 50% in coordination of care (as documented) at patient's floor/unit and/or counseling patient: Coding Level of Care Code 92395 OBS Care - Level 3 Diagnoses Cellulitis of elbow L03.119 Finger laceration S61.211A Damage to nail status: without damage Encounter type: initial encounter Finger: index finger Foreign body presence: without foreign body Laterality: left GERD (gastroesophageal reflux disease) K21.9 Esophagitis presence: esophagitis presence not specified HTN (hypertension) I10 Hypertension type: essential hypertension Asthma J45.909 Asthma complication type: unspecified Asthma persistence: unspecified Asthma severity: moderate DVT prophylaxis Z29.9 (1) Finger laceration Damage to nail status: without damage Encounter type: initial encounter Finger: index finger Foreign body presence: without foreign body Laterality: left Qualified Code(s): S61.211A - Laceration without foreign body of left index finger without damage to nail, initial encounter (2) GERD (gastroesophageal reflux disease) Esophagitis presence: esophagitis presence not specified Qualified Code(s): K21.9 - Gastro-esophageal reflux disease without esophagitis (3) HTN (hypertension) Hypertension type: essential hypertension Qualified Code(s): I10 - Essential (primary) hypertension (4) Asthma Asthma complication type: unspecified Asthma persistence: unspecified Asthma severity: moderate Qualified Code(s): J45.909 - Unspecified asthma, uncomplicated
[2020-03-25 17:05] LABS: Lyme Ab IgG w/WB Rflx Negative (Negative); Lyme Ab IgM w/WB Rflx Negative (Negative)
[2020-03-25 17:46] LABS: Uric Acid 6.6 mg/dl (2.6-7.2)
[2020-03-25] MEDS ORDERED: ALBUTEROL HFA 8 GM INHALER INH PRN (20:05)
[2020-03-25] MEDS ORDERED: IBUPROFEN 200 MG TAB PO PRN (20:05)
[2020-03-25] MEDS ORDERED: CONSULT PHARMACY PRN (20:16)
[2020-03-25] MEDS ORDERED: VANCOMYCIN HCL 2,500 MG in SODIUM CHLORIDE 0.9% 500 ML IV SCH (20:30)
[2020-03-25] MEDS: ACETAMINOPHEN 500 MG TAB PO PRN (20:35)
[2020-03-25] MEDS: FLUTICASONE PROPIONATE NA SPR 16 GM BTL SCH (22:14)
[2020-03-25] MEDS: GABAPENTIN 400 MG CAP PO SCH (22:14)
[2020-03-25] MEDS: CLINDAMYCIN 900 MG in DEXTROSE 5% 50 ML IV SCH (22:17)
[2020-03-25] MEDS: CARISOPRODOL 350 MG TABLET PO SCH ×2 (22:20→22:22)
[2020-03-25] MEDS ORDERED: DICLOFENAC SOD 1% GEL 100 GM TUBE EXT PRN (22:54)
[2020-03-26] MEDS ORDERED: MoRPHine SULFATE 2 MG/ML CARP IV STA (00:03)
[2020-03-26 00:26] LABS: Appearance Urine Clear (Clear); Bilirubin Urine Negative (Negative); Blood Urine Negative (Negative); Color Urine Yellow; Glucose Urine UA Negative (Negative); Ketones Urine Negative (Negative); Leukocyte Esterase Urine Negative (Negative); Nitrite Urine Negative (Negative); Protein Urine Negative (Negative); Specific Gravity Urine 1.025 (1.000-1.030); Urobilinogen Urine Negative (Negative)
[2020-03-26] MEDS: VANCOMYCIN HCL 1,500 MG in SODIUM CHLORIDE 0.9% 500 ML IV SCH ×3 (04:28→20:24)
[2020-03-26] MEDS: ACETAMINOPHEN 500 MG TAB PO PRN (04:30)
[2020-03-26] MEDS: CLINDAMYCIN 900 MG in DEXTROSE 5% 50 ML IV SCH ×3 (04:30→20:25)
[2020-03-26] MEDS: PANTOprazole 40 MG TAB PO SCH (08:03)
[2020-03-26] MEDS: GABAPENTIN 400 MG CAP PO SCH ×4 (08:03→20:25)
[2020-03-26] MEDS: OMEGA-3 (PURIFIED FISH OIL) 1 GM CAP PO SCH (08:03)
[2020-03-26] MEDS: FEXOFENADINE HCL 180 MG TAB PO SCH (08:03)
[2020-03-26] MEDS: FLUoxetine HCL 20 MG CAP PO SCH (08:03)
[2020-03-26] MEDS: CARISOPRODOL 350 MG TABLET PO SCH ×4 (08:04→20:25)
[2020-03-26] MEDS: ASCORBIC ACID 500 MG TAB PO SCH (08:04)
[2020-03-26] MEDS: METOPROLOL SUCC 25MG EXT REL TAB PO SCH (08:04)
[2020-03-26] MEDS: FLUTICASONE PROPIONATE NA SPR 16 GM BTL SCH ×2 (08:05→20:26)
[2020-03-26 08:32] LABS: Basophils # (auto) 0.04 K/uL (0-0.2); Basophils % (auto) 0.8 %; Eosinophils # (auto) 0.15 K/uL (0-0.5); Eosinophils % (auto) 3.2 %; Hematocrit (blood only) 41.1 % (42-52); Hemoglobin 14.6 g/dL (14.0-18.0); Immature Granulocytes # (auto) 0.02 K/uL (0.00-0.02); Immature Granulocytes % (auto) 0.4 %; Lymphocytes # (auto) 1.37 K/uL (1.2-3.4); Lymphocytes % (auto) 28.9 %; Mean Corpuscular Hemoglobin 31.4 pg (25-34); Mean Corpuscular Hgb Conc 35.5 g/dL (32-36); Mean Corpuscular Volume 88.4 fL (80-100); Monocytes # (auto) 0.32 K/uL (0.11-0.59); Monocytes % (auto) 6.8 %; Neutrophils # (auto) 2.84 K/uL (1.4-6.5); Neutrophils % (auto) 59.9 %; Platelet Count 236 K/uL (130-400); RDW Coefficient of Variation 12.5 % (11.5-14.5); RDW Standard Deviation 39.9 fL (36.4-46.3); Red Blood Count 4.65 M/uL (4.7-6.1); White Blood Count 4.74 K/uL (4.8-10.8)
[2020-03-26 09:07] LABS: BUN Creatinine Ratio 14.9 (10-20); C Reactive Protein 3.06 mg/dl (0-0.29); Calcium 9.5 mg/dl (8.5-10.1); Creatinine Clr Calc Pharmacy 141.7 ml/min; Est GFR (African American) 126.9; Est GFR (Non-African American) 109.5; Potassium 3.6 mmol/L (3.5-5.1)
[2020-03-26] MEDS ORDERED: VANCOMYCIN CONSULT ACTIVE PRN (09:30)
--- NOTE | 2020-03-26 09:47 | Pharmacy Report ---
Pharmacy Abx Dose Short Note - Date of Service March 26, 2020 - Assessment & Plan Assessment 39 year old M presenting for evaluation of left elbow infection (referred from PCP office). Patient was seen in the ED on 03/12/20 for left index finger laceration. At his return visit for suture removal he complained of redness, swelling, and pain of left elbow. He had previously been ordered keflex by PCP for olecranon bursitis but had not yet picked up the prescription. He returned to the ED the next day with worsening of symptoms. He was given a dose of ceftriaxone and was discharged to home to continue keflex with doxycycline added. Patient continues to report worsening symptoms and was referred to ED for additional evaluation. He is currently ordered empiric clindamycin and vancomycin. * L finger drainage culture growing Staph species Plan Vancomycin * Loading dose: 2500 mg IV * Maintenance dose: 1500 mg (13.4 mg/kg) IV q8h * Goal trough level: ~15 mcg/mL * Trough level ordered for: 03/26/20 @ 1930 Pharmacy will continue to follow and will adjust dose/frequency as necessary. Thank you.
--- NOTE | 2020-03-26 10:33 | Hospitalist Progress Note ---
Date of Service March 26, 2020 Assessment & Plan (1) Cellulitis of elbow: * Infectious vs Inflammatory * Per patient, R elbow with similar issue about 2 years ago * Stitches removed on Tuesday but then developed pustule * culture from laceration with staph aureus * Blood cultures pending -- NGTD * CT elbow pending given increased erythema/pain -- ? fluid collecting for possible gout vs infectious etiology as WBC wnl, afebrile * ESR elevated to 36 (prior 40), CRP 3.06 (prior 5.92) * Lyme negative * Uric acid 6.6 * Procal <0.05 * lactic pending * Continue Clinda/Vanco (prior on Keflex and then got Rocephin in ER on return and then discharged on Keflex/Doxy combination prior to re-presenting for w orsening pain/erythema/swelling) * Orthopedics consulted -- appreciate input (2) Finger laceration: * stable no acute needs, drainage cultured by EMD * Culture with staph aureus on prelim -- can likely d/c Clinda * Follow final c/s (3) GERD (gastroesophageal reflux disease): * Continue omeprazole no acute needs --> protonix while inpatient (4) HTN (hypertension): * BP low 99/54, asymptomatic * Metoprolol held for parameters this morning * Continue to monitor (5) Asthma: * Unable to find follow up or management of inhalers, however patient continues to smoke. Continue Albuterol and Flonase intranasal for chronic sinusitis. * 97% on RA * No wheezing/issues reported (6) DVT prophylaxis: * SCDs * Ambulation encouraged Dispo: ortho/ct pending continued inpatient stay Admission and Anticipated Discharge Date Admission Date: March 25, 2020 Subjective Patient evaluated this morning. Increased pain last evening, improved short term with morphine and not relieved by Tylenol. Had been sent with oxycodone from ER which provided more relief in previous days. Discussed adding for breakthrough pain for longer lasting pain control. Erythema and swelling slightly worsened from yesterday. No fever, chills, chest pain, shortness of breath. Still able to have full ROM. Laceration to 3rd digit with stitches removed on Tuesday without issue or drainage. States from Tuesday to Tuesday he had increased swelling/pain/fluid. He states he did have a similar issue but not as severe 2 years ago that was drained by [facility]. Was on abx at that time but denies knowing if it grew MRSA/pseudomonas. Denies rheumatological conditions or history of gout in the past. States US done yesterday without fluid but that they did collect culture from L wound in ER. Discussed given increased beyond markings, increased pain, will obtain imaging and consult orthopedics, [facility] as has been seen in the past by Dr. Parson. 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 Questions/concerns addressed at this time. Review of Systems Review of Systems: All systems reviewed & are unremarkable except as noted in HPI & below Physical Exam Physical Exam: PHYSICAL EXAM: General: awake, alert, no apparent distress Head: Normocephalic, atraumatic ENT: PERRL, EOMI, no pharyngeal exudate, mucous membranes moist Neuro: AAO x 3, speech clear and appropriate, strength intact bilaterally 5/5, sensation intact and equal all extremities Chest: equal rise and fall of the chest, no accessory muscle use, no heaves or thrills, Clear to auscultation, on room air, Cardiac: Regular rate and rhythm, telemetry reviewed, skin warm dry, cap refill <3 seconds, peripheral pulses +2 no JVD, no murmur. GI: NABS x 4 quadrants, soft, nontender to palpation, no rebound, guarding or tenderness : Spontaneously voiding, no pain, no CVA tenderness, Extremities: Normal inspection, no peripheral edema or erythema, calfs nontender to palpation Psych: Normal mood and affect Skin/musculoskeletal: erythema to left elbow, tracks proximally and distally from joint, lymph nodes enlarged to lt axillae, tenderness to shoulder. Full ROM to wrist and shoulder. erythema spread beyond markings both distally and laterally to elbow, increased tenderness to palpation, small amount of fluid appreciated on palpation no evidence of skin breakdown/opening L finger laceration without drainage today, non-tender. NVI. ROM intact Results & Data Results & Data ([facility]) Vital Signs (Past 12 Hours) Vital Signs Temp Pulse Resp BP Pulse Ox 03/26/20 07:07 37 C 59 L 18 99/54 L 97 03/25/20 23:33 37.1 C 72 20 116/70 96 Laboratory Results 03/26/20 03/26/20 03/26/20 Range/Units 08:20 08:20 08:20 WBC 4.74 L (4.8-10.8) K/uL RBC 4.65 L (4.7-6.1) M/uL Hgb 14.6 (14.0-18.0) g/dL Hct 41.1 L (42-52) % MCV 88.4 (80-100) fL MCH 31.4 (25-34) pg MCHC 35.5 (32-36) g/dL RDW Std Deviation 39.9 (36.4-46.3) fL RDW Coeff of Panfilo 12.5 (11.5-14.5) % Plt Count 236 (130-400) K/uL MPV 9.0 (7.4-10.4) fL Immature Gran % (Auto) 0.4 % Neut % (Auto) 59.9 % Lymph % (Auto) 28.9 % Nobles % (Auto) 6.8 % Eos % (Auto) 3.2 % Baso % (Auto) 0.8 % Neut # (Auto) 2.84 (1.4-6.5) K/uL Lymph # (Auto) 1.37 (1.2-3.4) K/uL Nobles # (Auto) 0.32 (0.11-0.59) K/uL Eos # (Auto) 0.15 (0-0.5) K/uL Baso # (Auto) 0.04 (0-0.2) K/uL Immature Gran # (Auto) 0.02 (0.00-0.02) K/uL ESR 36 H (0-14) mm/hr PT (9.0-12.0) Seconds INR (0.9-1.1) APTT (21.0-31.0) Seconds PTT Ratio Sodium 137 (136-145) mmol/L Potassium 3.6 (3.5-5.1) mmol/L Chloride 104 (98-107) mmol/L Carbon Dioxide 24 (21-32) mmol/L Anion Gap 9.0 (3-11) BUN 13 (7-18) mg/dl Creatinine 0.84 (0.6-1.4) mg/dl Est Cr Clr Drug Dosing 141.7 ml/min Est GFR ( Amer) 126.9 Est GFR (Non-Af Amer) 109.5 BUN/Creatinine Ratio 14.9 (10-20) Glucose 116 H (70-99) mg/dl Uric Acid (2.6-7.2) mg/dl Calcium 9.5 (8.5-10.1) mg/dl Total Bilirubin (0.2-1) mg/dl AST (15-37) U/L ALT (12-78) U/L Alkaline Phosphatase (45-117) U/L C-Reactive Protein 3.06 H (0-0.29) mg/dl Total Protein (6.4-8.2) gm/dl Albumin (3.4-5.0) gm/dl Globulin (2.5-4.0) gm/dl Albumin/Globulin Ratio (0.9-2) Procalcitonin (0-0.5) ng/ml Urine Color Urine Appearance (Clear) Urine pH (4.5-7.5) Ur Specific [place] (1.000-1.030) Urine Protein (Negative) Urine Glucose (UA) (Negative) Urine Ketones (Negative) Urine Blood (Negative) Urine Nitrite (Negative) Urine Bilirubin (Negative) Urine Urobilinogen (Negative) Ur Leukocyte Esterase (Negative) Lyme Disease IgG Ab (Negative) Lyme Disease IgM Ab (Negative) COVID-19 Eval Order SARS-CoV-2, RNA, NAAT (NEGATIVE) 03/26/20 03/25/20 03/25/20 Range/Units 00:10 16:16 16:16 WBC (4.8-10.8) K/uL RBC (4.7-6.1) M/uL Hgb (14.0-18.0) g/dL Hct (42-52) % MCV (80-100) fL MCH (25-34) pg MCHC (32-36) g/dL RDW Std Deviation (36.4-46.3) fL RDW Coeff of Panfilo (11.5-14.5) % Plt Count (130-400) K/uL MPV (7.4-10.4) fL Immature Gran % (Auto) % Neut % (Auto) % Lymph % (Auto) % [place]les % (Auto) % Eos % (Auto) % Baso % (Auto) % Neut # (Auto) (1.4-6.5) K/uL Lymph # (Auto) (1.2-3.4) K/uL [place]les # (Auto) (0.11-0.59) K/uL Eos # (Auto) (0-0.5) K/uL Baso # (Auto) (0-0.2) K/uL Immature Gran # (Auto) (0.00-0.02) K/uL ESR (0-14) mm/hr PT (9.0-12.0) Seconds INR (0.9-1.1) APTT (21.0-31.0) Seconds PTT Ratio Sodium (136-145) mmol/L Potassium (3.5-5.1) mmol/L Chloride (98-107) mmol/L Carbon Dioxide (21-32) mmol/L Anion Gap (3-11) BUN (7-18) mg/dl Creatinine (0.6-1.4) mg/dl Est Cr Clr Drug Dosing ml/min Est GFR ( Amer) Est GFR (Non-Af Amer) BUN/Creatinine Ratio (10-20) Glucose (70-99) mg/dl Uric Acid (2.6-7.2) mg/dl Calcium (8.5-10.1) mg/dl Total Bilirubin (0.2-1) mg/dl AST (15-37) U/L ALT (12-78) U/L Alkaline Phosphatase (45-117) U/L C-Reactive Protein (0-0.29) mg/dl Total Protein (6.4-8.2) gm/dl Albumin (3.4-5.0) gm/dl Globulin (2.5-4.0) gm/dl Albumin/Globulin Ratio (0.9-2) Procalcitonin (0-0.5) ng/ml Urine Color Yellow Urine Appearance Clear (Clear) Urine pH 6.0 (4.5-7.5) Ur Specific [place] 1.025 (1.000-1.030) Urine Protein Negative (Negative) Urine Glucose (UA) Negative (Negative) Urine Ketones Negative (Negative) Urine Blood Negative (Negative) Urine Nitrite Negative (Negative) Urine Bilirubin Negative (Negative) Urine Urobilinogen Negative (Negative) Ur Leukocyte Esterase Negative (Negative) Lyme Disease IgG Ab (Negative) Lyme Disease IgM Ab (Negative) COVID-19 Eval Order Covid19 [facility]Now [facility] SARS-CoV-2, RNA, NAAT NEGATIVE (NEGATIVE) 03/25/20 03/25/20 03/25/20 Range/Units 15:57 15:57 15:57 WBC (4.8-10.8) K/uL RBC (4.7-6.1) M/uL Hgb (14.0-18.0) g/dL Hct (42-52) % MCV (80-100) fL MCH (25-34) pg MCHC (32-36) g/dL RDW Std Deviation (36.4-46.3) fL RDW Coeff of Panfilo (11.5-14.5) % Plt Count (130-400) K/uL MPV (7.4-10.4) fL Immature Gran % (Auto) % Neut % (Auto) % Lymph % (Auto) % Nobles % (Auto) % Eos % (Auto) % Baso % (Auto) % Neut # (Auto) (1.4-6.5) K/uL Lymph # (Auto) (1.2-3.4) K/uL [place] # (Auto) (0.11-0.59) K/uL Eos # (Auto) (0-0.5) K/uL Baso # (Auto) (0-0.2) K/uL Immature Gran # (Auto) (0.00-0.02) K/uL ESR (0-14) mm/hr PT (9.0-12.0) Seconds INR (0.9-1.1) APTT (21.0-31.0) Seconds PTT Ratio Sodium (136-145) mmol/L Potassium (3.5-5.1) mmol/L Chloride (98-107) mmol/L Carbon Dioxide (21-32) mmol/L Anion Gap (3-11) BUN (7-18) mg/dl Creatinine (0.6-1.4) mg/dl Est Cr Clr Drug Dosing ml/min Est GFR ( Amer) Est GFR (Non-Af Amer) BUN/Creatinine Ratio (10-20) Glucose (70-99) mg/dl Uric Acid (2.6-7.2) mg/dl Calcium (8.5-10.1) mg/dl Total Bilirubin (0.2-1) mg/dl AST (15-37) U/L ALT (12-78) U/L Alkaline Phosphatase (45-117) U/L C-Reactive Protein 5.92 H (0-0.29) mg/dl Total Protein (6.4-8.2) gm/dl Albumin (3.4-5.0) gm/dl Globulin (2.5-4.0) gm/dl Albumin/Globulin Ratio (0.9-2) Procalcitonin < 0.05 (0-0.5) ng/ml Urine Color Urine Appearance (Clear) Urine pH (4.5-7.5) Ur Specific [place] (1.000-1.030) Urine Protein (Negative) Urine Glucose (UA) (Negative) Urine Ketones (Negative) Urine Blood (Negative) Urine Nitrite (Negative) Urine Bilirubin (Negative) Urine Urobilinogen (Negative) Ur Leukocyte Esterase (Negative) Lyme Disease IgG Ab Negative (Negative) Lyme Disease IgM Ab Negative (Negative) COVID-19 Eval Order SARS-CoV-2, RNA, NAAT (NEGATIVE) 03/25/20 03/25/20 03/25/20 Range/Units 15:57 15:57 15:57 WBC (4.8-10.8) K/uL RBC (4.7-6.1) M/uL Hgb (14.0-18.0) g/dL Hct (42-52) % MCV (80-100) fL MCH (25-34) pg MCHC (32-36) g/dL RDW Std Deviation (36.4-46.3) fL RDW Coeff of Panfilo (11.5-14.5) % Plt Count (130-400) K/uL MPV (7.4-10.4) fL Immature Gran % (Auto) % Neut % (Auto) % Lymph % (Auto) % [place] % (Auto) % Eos % (Auto) % Baso % (Auto) % Neut # (Auto) (1.4-6.5) K/uL Lymph # (Auto) (1.2-3.4) K/uL [place] # (Auto) (0.11-0.59) K/uL Eos # (Auto) (0-0.5) K/uL Baso # (Auto) (0-0.2) K/uL Immature Gran # (Auto) (0.00-0.02) K/uL ESR 40 H (0-14) mm/hr PT 10.6 (9.0-12.0) Seconds INR 1.0 (0.9-1.1) APTT 29.3 (21.0-31.0) Seconds PTT Ratio 1.1 Sodium 136 (136-145) mmol/L Potassium 3.9 (3.5-5.1) mmol/L Chloride 104 (98-107) mmol/L Carbon Dioxide 25 (21-32) mmol/L Anion Gap 7.0 (3-11) BUN 11 D (7-18) mg/dl Creatinine 0.74 (0.6-1.4) mg/dl Est Cr Clr Drug Dosing 161.9 ml/min Est GFR ( Amer) 133.7 Est GFR (Non-Af Amer) 115.4 BUN/Creatinine Ratio 15.1 (10-20) Glucose 96 (70-99) mg/dl Uric Acid 6.6 (2.6-7.2) mg/dl Calcium 10.2 H (8.5-10.1) mg/dl Total Bilirubin 0.6 (0.2-1) mg/dl AST 16 (15-37) U/L ALT 31 (12-78) U/L Alkaline Phosphatase 71 (45-117) U/L C-Reactive Protein 6.70 H (0-0.29) mg/dl Total Protein 8.3 H (6.4-8.2) gm/dl Albumin 4.3 (3.4-5.0) gm/dl Globulin 4.0 (2.5-4.0) gm/dl Albumin/Globulin Ratio 1.1 (0.9-2) Procalcitonin (0-0.5) ng/ml Urine Color Urine Appearance (Clear) Urine pH (4.5-7.5) Ur Specific [place] (1.000-1.030) Urine Protein (Negative) Urine Glucose (UA) (Negative) Urine Ketones (Negative) Urine Blood (Negative) Urine Nitrite (Negative) Urine Bilirubin (Negative) Urine Urobilinogen (Negative) Ur Leukocyte Esterase (Negative) Lyme Disease IgG Ab (Negative) Lyme Disease IgM Ab (Negative) COVID-19 Eval Order SARS-CoV-2, RNA, NAAT (NEGATIVE) 03/25/20 Range/Units 15:57 WBC 5.34 (4.8-10.8) K/uL RBC 4.81 (4.7-6.1) M/uL Hgb 15.4 (14.0-18.0) g/dL Hct 42.9 (42-52) % MCV 89.2 (80-100) fL MCH 32.0 (25-34) pg MCHC 35.9 (32-36) g/dL RDW Std Deviation 41.0 (36.4-46.3) fL RDW Coeff of Panfilo 12.5 (11.5-14.5) % Plt Count 279 (130-400) K/uL MPV 9.4 (7.4-10.4) fL Immature Gran % (Auto) 0.2 % Neut % (Auto) 71.1 % Lymph % (Auto) 20.6 % [place]les % (Auto) 4.5 % Eos % (Auto) 3.0 % Baso % (Auto) 0.6 % Neut # (Auto) 3.80 (1.4-6.5) K/uL Lymph # (Auto) 1.10 L (1.2-3.4) K/uL [place] # (Auto) 0.24 (0.11-0.59) K/uL Eos # (Auto) 0.16 (0-0.5) K/uL Baso # (Auto) 0.03 (0-0.2) K/uL Immature Gran # (Auto) 0.01 (0.00-0.02) K/uL ESR (0-14) mm/hr PT (9.0-12.0) Seconds INR (0.9-1.1) APTT (21.0-31.0) Seconds PTT Ratio Sodium (136-145) mmol/L Potassium (3.5-5.1) mmol/L Chloride (98-107) mmol/L Carbon Dioxide (21-32) mmol/L Anion Gap (3-11) BUN (7-18) mg/dl Creatinine (0.6-1.4) mg/dl Est Cr Clr Drug Dosing ml/min Est GFR ( Amer) Est GFR (Non-Af Amer) BUN/Creatinine Ratio (10-20) Glucose (70-99) mg/dl Uric Acid (2.6-7.2) mg/dl Calcium (8.5-10.1) mg/dl Total Bilirubin (0.2-1) mg/dl AST (15-37) U/L ALT (12-78) U/L Alkaline Phosphatase (45-117) U/L C-Reactive Protein (0-0.29) mg/dl Total Protein (6.4-8.2) gm/dl Albumin (3.4-5.0) gm/dl Globulin (2.5-4.0) gm/dl Albumin/Globulin Ratio (0.9-2) Procalcitonin (0-0.5) ng/ml Urine Color Urine Appearance (Clear) Urine pH (4.5-7.5) Ur Specific [place] (1.000-1.030) Urine Protein (Negative) Urine Glucose (UA) (Negative) Urine Ketones (Negative) Urine Blood (Negative) Urine Nitrite (Negative) Urine Bilirubin (Negative) Urine Urobilinogen (Negative) Ur Leukocyte Esterase (Negative) Lyme Disease IgG Ab (Negative) Lyme Disease IgM Ab (Negative) COVID-19 Eval Order SARS-CoV-2, RNA, NAAT (NEGATIVE) Diagnostic Findings Elbow CT pending PG Care Time/CCT Total # of Minutes Spent Total Time Spent with Patient: Total time spent is greater than 50% in coordination of care (as documented) at patient's floor/unit and/or counseling patient: Coding Level of Care Code 41707 Subseq Obs Care Lvl 3 Diagnoses Cellulitis of elbow L03.119 Finger laceration S61.211A Damage to nail status: without damage Encounter type: initial encounter Finger: index finger Foreign body presence: without foreign body Laterality: left GERD (gastroesophageal reflux disease) K21.9 Esophagitis presence: esophagitis presence not specified HTN (hypertension) I10 Hypertension type: essential hypertension Asthma J45.909 Asthma severity: moderate Asthma persistence: unspecified Asthma complication type: unspecified DVT prophylaxis Z29.9 (1) Finger laceration Damage to nail status: without damage Encounter type: initial encounter Finger: index finger Foreign body presence: without foreign body Laterality: left Qualified Code(s): S61.211A - Laceration without foreign body of left index finger without damage to nail, initial encounter (2) GERD (gastroesophageal reflux disease) Esophagitis presence: esophagitis presence not specified Qualified Code(s): K21.9 - Gastro-esophageal reflux disease without esophagitis (3) HTN (hypertension) Hypertension type: essential hypertension Qualified Code(s): I10 - Essential (primary) hypertension (4) Asthma Asthma severity: moderate Asthma persistence: unspecified Asthma complication type: unspecified Qualified Code(s): J45.909 - Unspecified asthma, uncomplicated
[2020-03-26] MEDS ORDERED: IOVERSOL 100ml IV ONE (11:25)
[2020-03-26] MEDS: oxyCODONE HCL IR 5 MG TAB (IMMEDIATE RELEASE) PO PRN ×3 (11:33→20:35)
--- NOTE | 2020-03-26 11:40 | Orthopedic Consultation ---
Date of Consultation March 26, 2020 Assessment & Plan (1) Cellulitis of left elbow: Will await CT scan results. He may do full range of motion and activities as tolerated for the left elbow. Avoid any pressure on his left elbow for comfort. May use an [place] bandage on left elbow for comfort and swelling reduction if necessary. Regular diet for now. No evidence of significant abscess or collection that would need aspirated or drained surgically. We will follow CT scan results. No plans for surgery at this time. Patient was seen and evaluated by Dr. Parson today. Continue regular diet. Will re-eval tomorrow. Continue antiobiotics and care per primary service. I, Dr. Parson, saw and examined the patient and discussed the management with my PA. I reviewed my PAs note and agree with the documented findings and the plan of care I developed. (2) Laceration of left index finger w/o foreign body w/o damage to nail: RICE on IV antibiotics Work on range of motion exercises. History of Present Illness Reason for Consultation: left elbow swelling and erythema Attending Physician: Ariel Rose MD History of Present Illness Patient is a pleasant 39-year-old male, known patient to Dr. Parson. Who presented to the emergency room yesterday with complaints of increased left elbow pain and swelling. He states that on Tuesday developed increased pain and noticed some swelling and redness to the left elbow. He denies any direct elbow injury. He states that he had a cut on his left index finger which healed up nicely although did develop a small pustule which he squeezed out pus yesterday. That has improved. He denies any known redness or warmth to the finger itself. He is able to move his finger. He has not had any chills but a few days ago noted a very low-grade temperature. He has not done anything for the elbow. He states he is not slept because is very hard to put any type of pressure on that left elbow itself. Swelling is slightly better today versus yesterday. Denies any other injuries or issues. Allergies Allergy/AdvReac Type Severity Reaction Status Date / Time NSAIDS (Non-Steroidal AdvReac Intermediate Upset Verified 03/25/20 15:57 Anti-Inflamma stomach Home Medications Medication Instructions Recorded Confirmed Type gabapentin 400 mg PO QID 11/07/17 03/25/20 History omeprazole 40 mg PO QAM 11/07/17 03/25/20 History carisoprodol [Soma] 350 mg PO QID 03/31/18 03/25/20 History fluticasone propionate [Flonase 2 spray INTRANASAL BID 03/31/18 03/25/20 History Allergy Relief] albuterol sulfate 2 puff INHALATION Q6H PRN 06/02/18 03/25/20 History lisinopril-hydrochlorothiazide 1 tab PO QAM 06/02/18 03/25/20 History fluoxetine 40 mg PO QAM 06/22/18 03/25/20 History metoprolol succinate 12.5 mg PO QAM 06/22/18 03/25/20 History omega-3 fatty acids [Fish Oil 1,000 mg PO QAM 11/24/19 03/25/20 History Concentrate] turmeric 400 mg PO DAILY 11/24/19 03/25/20 History zinc acetate 50 mg PO DAILY 11/24/19 03/25/20 History ascorbic acid (vitamin C) [Vitamin 1,500 mg PO QAM 12/08/19 03/25/20 History C] cholecalciferol (vitamin D3) 1,000 mcg PO QAM 12/08/19 03/25/20 History [Vitamin D3] fexofenadine 180 mg PO QAM 03/12/20 03/25/20 History cephalexin 500 mg PO QID 03/23/20 03/25/20 History doxycycline hyclate 100 mg PO Q12H 9 Days #18 cap 03/23/20 03/25/20 Rx oxycodone [Roxicodone] 5 mg PO Q6H PRN 03/25/20 03/25/20 History Patient History Medical History Anxiety disorder Degenerative disc disease NECK/LOWER BACK Depressive disorder Gastritis GERD (gastroesophageal reflux disease) Headache Hiatal hernia HX HTN (hypertension) Musculoskeletal pain Obesity Osteoarthritis Scoliosis Sleep disorder, shift work Temporomandibular joint disorder CLICKS LEFT SIDE-HAS NEVER LOCKED Surgical History (Updated 03/26/20 @ 12:05 by Tho Parson MD) H/O arthroscopy of right knee H/O umbilical hernia repair History of carpal tunnel surgery of left wrist History of carpal tunnel surgery of right wrist 04/2019 [facility] [place] History of esophagogastroduodenoscopy (EGD) S/P Achilles tendon repair LEFT Status post debridement of bone spur Family History Mother Hypertension Grandmother (Maternal) Diabetes Other Gallbladder disease Lung disease No family history of adverse response to anesthesia No family history of bleeding disorder Sinusitis Social History Smoking Status: Current some day smoker Tobacco Type: Cigarettes Cigarettes Per Day: 6; Second Hand Exposure: Yes; Do You Dip or Chew Tobacco: No; Hx Alcohol Use: Yes Alcohol type: beer Hx Substance Use: No Preferred Language: Mongolian Communication Ability: Effective Visual Impairment: No Limitations Hearing Ability: Normal Fast Food Assistant Restaurant Manager Required: No Beliefs That Will Affect Care: None marital status: marital status details: Current Living Situation: Spouse current occupational status: employed 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 There is no evidence of erythema or edema to his left hand. A small wound on his left index finger is healed nicely. There is no evidence of abscess, erythema, warmth, ecchymosis or skin defect. It is nontender with palpation. Distal neurovascular function is normal. No increased discomfort with finger flexion or extension. Full range of motion of his wrist and forearm. He also tolerates full elbow flexion and extension but does have pain at the extremes of both. He is tender with palpation over the olecranon with surrounding erythema of the olecranon. There is no significant effusion/swelling in the olecranon bursa. No deformity present. Distal triceps tendon is intact. Elbow strength is 5/5. Nontender of his radial head or medial or lateral epicondyles. There is no blistering or break in the skin. Full range of motion of his left shoulder without discomfort. No ecchymosis around his left elbow. Results & Data ([facility] [place]) Vital Signs (Past 12 Hours) Vital Signs Temp Pulse Resp BP Pulse Ox 03/26/20 07:07 37 C 59 L 18 99/54 L 97 Laboratory Results 02/12/0403/26/20 03/26/20 Range/Units 08:20 08:20 08:20 WBC 4.74 L (4.8-10.8) K/uL RBC 4.65 L (4.7-6.1) M/uL Hgb 14.6 (14.0-18.0) g/dL Hct 41.1 L (42-52) % MCV 88.4 (80-100) fL MCH 31.4 (25-34) pg MCHC 35.5 (32-36) g/dL RDW Std Deviation 39.9 (36.4-46.3) fL RDW Coeff of Panfilo 12.5 (11.5-14.5) % Plt Count 236 (130-400) K/uL MPV 9.0 (7.4-10.4) fL Immature Gran % (Auto) 0.4 % Neut % (Auto) 59.9 % Lymph % (Auto) 28.9 % [place] % (Auto) 6.8 % Eos % (Auto) 3.2 % Baso % (Auto) 0.8 % Neut # (Auto) 2.84 (1.4-6.5) K/uL Lymph # (Auto) 1.37 (1.2-3.4) K/uL [place] # (Auto) 0.32 (0.11-0.59) K/uL Eos # (Auto) 0.15 (0-0.5) K/uL Baso # (Auto) 0.04 (0-0.2) K/uL Immature Gran # (Auto) 0.02 (0.00-0.02) K/uL ESR 36 H (0-14) mm/hr PT (9.0-12.0) Seconds INR (0.9-1.1) APTT (21.0-31.0) Seconds PTT Ratio Sodium 137 (136-145) mmol/L Potassium 3.6 (3.5-5.1) mmol/L Chloride 104 (98-107) mmol/L Carbon Dioxide 24 (21-32) mmol/L Anion Gap 9.0 (3-11) BUN 13 (7-18) mg/dl Creatinine 0.84 (0.6-1.4) mg/dl Est Cr Clr Drug Dosing 141.7 ml/min Est GFR ( Amer) 126.9 Est GFR (Non-Af Amer) 109.5 BUN/Creatinine Ratio 14.9 (10-20) Glucose 116 H (70-99) mg/dl Uric Acid (2.6-7.2) mg/dl Calcium 9.5 (8.5-10.1) mg/dl Total Bilirubin (0.2-1) mg/dl AST (15-37) U/L ALT (12-78) U/L Alkaline Phosphatase (45-117) U/L C-Reactive Protein 3.06 H (0-0.29) mg/dl Total Protein (6.4-8.2) gm/dl Albumin (3.4-5.0) gm/dl Globulin (2.5-4.0) gm/dl Albumin/Globulin Ratio (0.9-2) Procalcitonin (0-0.5) ng/ml Urine Color Urine Appearance (Clear) Urine pH (4.5-7.5) Ur Specific [place] (1.000-1.030) Urine Protein (Negative) Urine Glucose (UA) (Negative) Urine Ketones (Negative) Urine Blood (Negative) Urine Nitrite (Negative) Urine Bilirubin (Negative) Urine Urobilinogen (Negative) Ur Leukocyte Esterase (Negative) Lyme Disease IgG Ab (Negative) Lyme Disease IgM Ab (Negative) COVID-19 Eval Order SARS-CoV-2, RNA, NAAT (NEGATIVE) 03/26/20 03/25/20 03/25/20 Range/Units 00:10 16:16 16:16 WBC (4.8-10.8) K/uL RBC (4.7-6.1) M/uL Hgb (14.0-18.0) g/dL Hct (42-52) % MCV (80-100) fL MCH (25-34) pg MCHC (32-36) g/dL RDW Std Deviation (36.4-46.3) fL RDW Coeff of Panfilo (11.5-14.5) % Plt Count (130-400) K/uL MPV (7.4-10.4) fL Immature Gran % (Auto) % Neut % (Auto) % Lymph % (Auto) % [place] % (Auto) % Eos % (Auto) % Baso % (Auto) % Neut # (Auto) (1.4-6.5) K/uL Lymph # (Auto) (1.2-3.4) K/uL [place] # (Auto) (0.11-0.59) K/uL Eos # (Auto) (0-0.5) K/uL Baso # (Auto) (0-0.2) K/uL Immature Gran # (Auto) (0.00-0.02) K/uL ESR (0-14) mm/hr PT (9.0-12.0) Seconds INR (0.9-1.1) APTT (21.0-31.0) Seconds PTT Ratio Sodium (136-145) mmol/L Potassium (3.5-5.1) mmol/L Chloride (98-107) mmol/L Carbon Dioxide (21-32) mmol/L Anion Gap (3-11) BUN (7-18) mg/dl Creatinine (0.6-1.4) mg/dl Est Cr Clr Drug Dosing ml/min Est GFR ( Amer) Est GFR (Non-Af Amer) BUN/Creatinine Ratio (10-20) Glucose (70-99) mg/dl Uric Acid (2.6-7.2) mg/dl Calcium (8.5-10.1) mg/dl Total Bilirubin (0.2-1) mg/dl AST (15-37) U/L ALT (12-78) U/L Alkaline Phosphatase (45-117) U/L C-Reactive Protein (0-0.29) mg/dl Total Protein (6.4-8.2) gm/dl Albumin (3.4-5.0) gm/dl Globulin (2.5-4.0) gm/dl Albumin/Globulin Ratio (0.9-2) Procalcitonin (0-0.5) ng/ml Urine Color Yellow Urine Appearance Clear (Clear) Urine pH 6.0 (4.5-7.5) Ur Specific [place] 1.025 (1.000-1.030) Urine Protein Negative (Negative) Urine Glucose (UA) Negative (Negative) Urine Ketones Negative (Negative) Urine Blood Negative (Negative) Urine Nitrite Negative (Negative) Urine Bilirubin Negative (Negative) Urine Urobilinogen Negative (Negative) Ur Leukocyte Esterase Negative (Negative) Lyme Disease IgG Ab (Negative) Lyme Disease IgM Ab (Negative) COVID[facility]-2, RNA, NAAT NEGATIVE (NEGATIVE) 03/25/20 03/25/20 03/25/20 Range/Units 15:57 15:57 15:57 WBC (4.8-10.8) K/uL RBC (4.7-6.1) M/uL Hgb (14.0-18.0) g/dL Hct (42-52) % MCV (80-100) fL MCH (25-34) pg MCHC (32-36) g/dL RDW Std Deviation (36.4-46.3) fL RDW Coeff of Panfilo (11.5-14.5) % Plt Count (130-400) K/uL MPV (7.4-10.4) fL Immature Gran % (Auto) % Neut % (Auto) % Lymph % (Auto) % [place] % (Auto) % Eos % (Auto) % Baso % (Auto) % Neut # (Auto) (1.4-6.5) K/uL Lymph # (Auto) (1.2-3.4) K/uL [place] # (Auto) (0.11-0.59) K/uL Eos # (Auto) (0-0.5) K/uL Baso # (Auto) (0-0.2) K/uL Immature Gran # (Auto) (0.00-0.02) K/uL ESR (0-14) mm/hr PT (9.0-12.0) Seconds INR (0.9-1.1) APTT (21.0-31.0) Seconds PTT Ratio Sodium (136-145) mmol/L Potassium (3.5-5.1) mmol/L Chloride (98-107) mmol/L Carbon Dioxide (21-32) mmol/L Anion Gap (3-11) BUN (7-18) mg/dl Creatinine (0.6-1.4) mg/dl Est Cr Clr Drug Dosing ml/min Est GFR ( Amer) Est GFR (Non-Af Amer) BUN/Creatinine Ratio (10-20) Glucose (70-99) mg/dl Uric Acid (2.6-7.2) mg/dl Calcium (8.5-10.1) mg/dl Total Bilirubin (0.2-1) mg/dl AST (15-37) U/L ALT (12-78) U/L Alkaline Phosphatase (45-117) U/L C-Reactive Protein 5.92 H (0-0.29) mg/dl Total Protein (6.4-8.2) gm/dl Albumin (3.4-5.0) gm/dl Globulin (2.5-4.0) gm/dl Albumin/Globulin Ratio (0.9-2) Procalcitonin < 0.05 (0-0.5) ng/ml Urine Color Urine Appearance (Clear) Urine pH (4.5-7.5) Ur Specific [place] (1.000-1.030) Urine Protein (Negative) Urine Glucose (UA) (Negative) Urine Ketones (Negative) Urine Blood (Negative) Urine Nitrite (Negative) Urine Bilirubin (Negative) Urine Urobilinogen (Negative) Ur Leukocyte Esterase (Negative) Lyme Disease IgG Ab Negative (Negative) Lyme Disease IgM Ab Negative (Negative) COVID-19 Eval Order SARS-CoV-2, RNA, NAAT (NEGATIVE) 03/25/20 03/25/20 03/25/20 Range/Units 15:57 15:57 15:57 WBC (4.8-10.8) K/uL RBC (4.7-6.1) M/uL Hgb (14.0-18.0) g/dL Hct (42-52) % MCV (80-100) fL MCH (25-34) pg MCHC (32-36) g/dL RDW Std Deviation (36.4-46.3) fL RDW Coeff of Panfilo (11.5-14.5) % Plt Count (130-400) K/uL MPV (7.4-10.4) fL Immature Gran % (Auto) % Neut % (Auto) % Lymph % (Auto) % [place] % (Auto) % Eos % (Auto) % Baso % (Auto) % Neut # (Auto) (1.4-6.5) K/uL Lymph # (Auto) (1.2-3.4) K/uL [place] # (Auto) (0.11-0.59) K/uL Eos # (Auto) (0-0.5) K/uL Baso # (Auto) (0-0.2) K/uL Immature Gran # (Auto) (0.00-0.02) K/uL ESR 40 H (0-14) mm/hr PT 10.6 (9.0-12.0) Seconds INR 1.0 (0.9-1.1) APTT 29.3 (21.0-31.0) Seconds PTT Ratio 1.1 Sodium 136 (136-145) mmol/L Potassium 3.9 (3.5-5.1) mmol/L Chloride 104 (98-107) mmol/L Carbon Dioxide 25 (21-32) mmol/L Anion Gap 7.0 (3-11) BUN 11 D (7-18) mg/dl Creatinine 0.74 (0.6-1.4) mg/dl Est Cr Clr Drug Dosing 161.9 ml/min Est GFR ( Amer) 133.7 Est GFR (Non-Af Amer) 115.4 BUN/Creatinine Ratio 15.1 (10-20) Glucose 96 (70-99) mg/dl Uric Acid 6.6 (2.6-7.2) mg/dl Calcium 10.2 H (8.5-10.1) mg/dl Total Bilirubin 0.6 (0.2-1) mg/dl AST 16 (15-37) U/L ALT 31 (12-78) U/L Alkaline Phosphatase 71 (45-117) U/L C-Reactive Protein 6.70 H (0-0.29) mg/dl Total Protein 8.3 H (6.4-8.2) gm/dl Albumin 4.3 (3.4-5.0) gm/dl Globulin 4.0 (2.5-4.0) gm/dl Albumin/Globulin Ratio 1.1 (0.9-2) Procalcitonin (0-0.5) ng/ml Urine Color Urine Appearance (Clear) Urine pH (4.5-7.5) Ur Specific [place] (1.000-1.030) Urine Protein (Negative) Urine Glucose (UA) (Negative) Urine Ketones (Negative) Urine Blood (Negative) Urine Nitrite (Negative) Urine Bilirubin (Negative) Urine Urobilinogen (Negative) Ur Leukocyte Esterase (Negative) Lyme Disease IgG Ab (Negative) Lyme Disease IgM Ab (Negative) COVID-19 Eval Order SARS-CoV-2, RNA, NAAT (NEGATIVE) 03/25/20 Range/Units 15:57 WBC 5.34 (4.8-10.8) K/uL RBC 4.81 (4.7-6.1) M/uL Hgb 15.4 (14.0-18.0) g/dL Hct 42.9 (42-52) % MCV 89.2 (80-100) fL MCH 32.0 (25-34) pg MCHC 35.9 (32-36) g/dL RDW Std Deviation 41.0 (36.4-46.3) fL RDW Coeff of Panfilo 12.5 (11.5-14.5) % Plt Count 279 (130-400) K/uL MPV 9.4 (7.4-10.4) fL Immature Gran % (Auto) 0.2 % Neut % (Auto) 71.1 % Lymph % (Auto) 20.6 % [place] % (Auto) 4.5 % Eos % (Auto) 3.0 % Baso % (Auto) 0.6 % Neut # (Auto) 3.80 (1.4-6.5) K/uL Lymph # (Auto) 1.10 L (1.2-3.4) K/uL [place] # (Auto) 0.24 (0.11-0.59) K/uL Eos # (Auto) 0.16 (0-0.5) K/uL Baso # (Auto) 0.03 (0-0.2) K/uL Immature Gran # (Auto) 0.01 (0.00-0.02) K/uL ESR (0-14) mm/hr PT (9.0-12.0) Seconds INR (0.9-1.1) APTT (21.0-31.0) Seconds PTT Ratio Sodium (136-145) mmol/L Potassium (3.5-5.1) mmol/L Chloride (98-107) mmol/L Carbon Dioxide (21-32) mmol/L Anion Gap (3-11) BUN (7-18) mg/dl Creatinine (0.6-1.4) mg/dl Est Cr Clr Drug Dosing ml/min Est GFR ( Amer) Est GFR (Non-Af Amer) BUN/Creatinine Ratio (10-20) Glucose (70-99) mg/dl Uric Acid (2.6-7.2) mg/dl Calcium (8.5-10.1) mg/dl Total Bilirubin (0.2-1) mg/dl AST (15-37) U/L ALT (12-78) U/L Alkaline Phosphatase (45-117) U/L C-Reactive Protein (0-0.29) mg/dl Total Protein (6.4-8.2) gm/dl Albumin (3.4-5.0) gm/dl Globulin (2.5-4.0) gm/dl Albumin/Globulin Ratio (0.9-2) Procalcitonin (0-0.5) ng/ml Urine Color Urine Appearance (Clear) Urine pH (4.5-7.5) Ur Specific [place] (1.000-1.030) Urine Protein (Negative) Urine Glucose (UA) (Negative) Urine Ketones (Negative) Urine Blood (Negative) Urine Nitrite (Negative) Urine Bilirubin (Negative) Urine Urobilinogen (Negative) Ur Leukocyte Esterase (Negative) Lyme Disease IgG Ab (Negative) Lyme Disease IgM Ab (Negative) COVID-19 Eval Order SARS-CoV-2, RNA, NAAT (NEGATIVE) Diagnostic Findings XR elbow LT min 3V routine - Reviewed by Dr. Parson today. CLINICAL HISTORY: L elbow erythema, edema, overlying bursa COMPARISON: None FINDINGS: Alignment of the left elbow is anatomic. There is no acute fracture. There is no joint effusion. Note is made of soft tissue swelling overlying the olecranon. No radiopaque foreign bodies identified. There is minimal spurring of the olecranon. IMPRESSION: 1. No acute fracture or joint effusion of the left elbow. 2. Soft tissue swelling overlying the olecranon. This may reflect olecranon bursitis or cellulitis. CT left elbow is pending. (1) Laceration of left index finger w/o foreign body w/o damage to nail Encounter type: sequela Qualified Code(s): S61.211S - Laceration without foreign body of left index finger without damage to nail, sequela
--- NOTE | 2020-03-26 12:04 | CT Scan Report ---
CT SCAN OF THE LEFT ELBOW WITH IV CONTRAST CLINICAL HISTORY: Olecranon bursitis. COMPARISON STUDY: Radiographs of the left elbow dated 03/23/2020. TECHNIQUE: Following the IV administration of 92 cc of Optiray 320, CT scan of the elbow is performed from the distal humerus to the proximal radius and ulna. Images are reviewed in the axial, sagittal, and coronal planes. IV contrast was administered without complication. A dose lowering technique was utilized adhering to the principles of ALARA. CT DOSE: 128.97 mGy.cm FINDINGS: The skeletal structures are well mineralized. No fracture is seen. There is no bony erosion or periostitis. The elbow joint is maintained. There is no joint effusion. No destructive bony lesio n is identified. The regional musculature is normal in appearance. There is significant dorsal soft t issue edema. There is no organized/peripherally enhancing fluid collection identified to suggest absc ess. The regional arteries are patent. IMPRESSION: 1. No bony abnormality is identified. 2. There is significant dorsal soft tissue edema, which likely represents olecranon bursitis and/or c ellulitis. 3. No organized fluid collection is seen to suggest abscess. ACT 112: Negative or not required by law. Electronically signed by: Riley Kimble M.D. 03/26/2020 12:02 PM
[2020-03-26] MEDS ORDERED: SODIUM CHLORIDE 0.9% 1000ML 250 ML IV ONE (15:13)
[2020-03-26] MEDS ORDERED: VANCOMYCIN TROUGH ONE (19:30)
[2020-03-27] MEDS: oxyCODONE HCL IR 5 MG TAB (IMMEDIATE RELEASE) PO PRN ×3 (03:43→12:29)
[2020-03-27] MEDS ORDERED: VANCOMYCIN HCL 1,750 MG in SODIUM CHLORIDE 0.9% 500 ML IV SCH (04:00)
[2020-03-27] MEDS: CLINDAMYCIN 900 MG in DEXTROSE 5% 50 ML IV SCH (04:46)
[2020-03-27 06:50] LABS: Basophils # (auto) 0.02 K/uL (0-0.2); Basophils % (auto) 0.5 %; Eosinophils # (auto) 0.17 K/uL (0-0.5); Eosinophils % (auto) 4.1 %; Hematocrit (blood only) 38.9 % (42-52); Hemoglobin 13.7 g/dL (14.0-18.0); Immature Granulocytes # (auto) 0.01 K/uL (0.00-0.02); Immature Granulocytes % (auto) 0.2 %; Lymphocytes # (auto) 1.37 K/uL (1.2-3.4); Lymphocytes % (auto) 32.9 %; Mean Corpuscular Hemoglobin 31.6 pg (25-34); Mean Corpuscular Hgb Conc 35.2 g/dL (32-36); Mean Corpuscular Volume 89.6 fL (80-100); Mean Platelet Volume 8.8 fL (7.4-10.4); Monocytes # (auto) 0.31 K/uL (0.11-0.59); Monocytes % (auto) 7.5 %; Neutrophils # (auto) 2.28 K/uL (1.4-6.5); Neutrophils % (auto) 54.8 %; Platelet Count 215 K/uL (130-400); RDW Coefficient of Variation 12.4 % (11.5-14.5); RDW Standard Deviation 40.2 fL (36.4-46.3); Red Blood Count 4.34 M/uL (4.7-6.1); White Blood Count 4.16 K/uL (4.8-10.8)
[2020-03-27 07:21] LABS: BUN Creatinine Ratio 19.1 (10-20); Calcium 8.6 mg/dl (8.5-10.1); Creatinine Clr Calc Pharmacy 165.3 ml/min; Est GFR (African American) 135.2; Est GFR (Non-African American) 116.7
[2020-03-27 07:23] LABS: C Reactive Protein 1.58 mg/dl (0-0.29)
[2020-03-27] MEDS: GABAPENTIN 400 MG CAP PO SCH ×2 (07:44→12:29)
[2020-03-27] MEDS: METOPROLOL SUCC 25MG EXT REL TAB PO SCH (07:45)
[2020-03-27] MEDS: OMEGA-3 (PURIFIED FISH OIL) 1 GM CAP PO SCH (07:47)
[2020-03-27] MEDS: FEXOFENADINE HCL 180 MG TAB PO SCH (07:47)
[2020-03-27] MEDS: FLUoxetine HCL 20 MG CAP PO SCH (07:47)
[2020-03-27] MEDS: PANTOprazole 40 MG TAB PO SCH (07:47)
[2020-03-27] MEDS: ASCORBIC ACID 500 MG TAB PO SCH (07:47)
[2020-03-27] MEDS: FLUTICASONE PROPIONATE NA SPR 16 GM BTL SCH (07:48)
[2020-03-27] MEDS: CARISOPRODOL 350 MG TABLET PO SCH ×2 (07:53→12:29)
--- NOTE | 2020-03-27 09:03 | Hospitalist Progress Note ---
Date of Service March 27, 2020 Assessment & Plan Admission and Anticipated Discharge Date Admission Date: March 25, 2020 Results & Data Results & Data ([facility]) Vital Signs (Past 12 Hours) Vital Signs Temp Pulse Resp BP BP Pulse Ox 03/27/20 07:41 36.5 C 53 L 18 121/77 97 03/26/20 23:00 37.1 C 81 20 136/79 97 Laboratory Results 03/27/20 03/27/20 03/27/20 Range/Units 06:39 06:39 06:39 WBC 4.16 L (4.8-10.8) K/uL RBC 4.34 L (4.7-6.1) M/uL Hgb 13.7 L (14.0-18.0) g/dL Hct 38.9 L (42-52) % MCV 89.6 (80-100) fL MCH 31.6 (25-34) pg MCHC 35.2 (32-36) g/dL RDW Std Deviation 40.2 (36.4-46.3) fL RDW Coeff of Panfilo 12.4 (11.5-14.5) % Plt Count 215 (130-400) K/uL MPV 8.8 (7.4-10.4) fL Immature Gran % (Auto) 0.2 % Neut % (Auto) 54.8 % Lymph % (Auto) 32.9 % [place] % (Auto) 7.5 % Eos % (Auto) 4.1 % Baso % (Auto) 0.5 % Neut # (Auto) 2.28 (1.4-6.5) K/uL Lymph # (Auto) 1.37 (1.2-3.4) K/uL [place] # (Auto) 0.31 (0.11-0.59) K/uL Eos # (Auto) 0.17 (0-0.5) K/uL Baso # (Auto) 0.02 (0-0.2) K/uL Immature Gran # (Auto) 0.01 (0.00-0.02) K/uL ESR 32 H (0-14) mm/hr Sodium 141 (136-145) mmol/L Potassium 4.0 (3.5-5.1) mmol/L Chloride 111 H (98-107) mmol/L Carbon Dioxide 25 (21-32) mmol/L Anion Gap 5.0 (3-11) BUN 14 (7-18) mg/dl Creatinine 0.72 (0.6-1.4) mg/dl Est Cr Clr Drug Dosing 165.3 ml/min Est GFR ( Amer) 135.2 Est GFR (Non-Af Amer) 116.7 BUN/Creatinine Ratio 19.1 (10-20) Glucose 100 H (70-99) mg/dl Lactate (0.4-2.0) mmol/L Calcium 8.6 (8.5-10.1) mg/dl C-Reactive Protein 1.58 H (0-0.29) mg/dl Vancomycin Trough (See Comment) mcg/ml 03/26/20 03/26/20 03/26/20 Range/Units 19:53 11:48 08:20 WBC (4.8-10.8) K/uL RBC (4.7-6.1) M/uL Hgb (14.0-18.0) g/dL Hct (42-52) % MCV (80-100) fL MCH (25-34) pg MCHC (32-36) g/dL RDW Std Deviation (36.4-46.3) fL RDW Coeff of Panfilo (11.5-14.5) % Plt Count (130-400) K/uL MPV (7.4-10.4) fL Immature Gran % (Auto) % Neut % (Auto) % Lymph % (Auto) % [place] % (Auto) % Eos % (Auto) % Baso % (Auto) % Neut # (Auto) (1.4-6.5) K/uL Lymph # (Auto) (1.2-3.4) K/uL [place] # (Auto) (0.11-0.59) K/uL Eos # (Auto) (0-0.5) K/uL Baso # (Auto) (0-0.2) K/uL Immature Gran # (Auto) (0.00-0.02) K/uL ESR (0-14) mm/hr Sodium 137 (136-145) mmol/L Potassium 3.6 (3.5-5.1) mmol/L Chloride 104 (98-107) mmol/L Carbon Dioxide 24 (21-32) mmol/L Anion Gap 9.0 (3-11) BUN 13 (7-18) mg/dl Creatinine 0.84 (0.6-1.4) mg/dl Est Cr Clr Drug Dosing 141.7 ml/min Est GFR ( Amer) 126.9 Est GFR (Non-Af Amer) 109.5 BUN/Creatinine Ratio 14.9 (10-20) Glucose 116 H (70-99) mg/dl Lactate 1.4 (0.4-2.0) mmol/L Calcium 9.5 (8.5-10.1) mg/dl C-Reactive Protein 3.06 H (0-0.29) mg/dl Vancomycin Trough 12.1 (See Comment) mcg/ml PG Care Time/CCT Total # of Minutes Spent Total Time Spent with Patient: Total time spent is greater than 50% in coordination of care (as documented) at patient's floor/unit and/or counseling patient: Coding
--- NOTE | 2020-03-27 09:43 | Orthopedic Progress Note ---
Date of Service March 27, 2020 Assessment & Plan (1) Cellulitis of left elbow: CT scan results reviewed by Dr Parson. No fluid collection or abscess. Diffuse soft tissue edema. No surgery required at this time. Continue antibiotics per primary service. He may do full range of motion and activities as tolerated for the left elbow. Avoid any pressure on his left elbow for comfort. May use an [place] bandage on left elbow for comfort and swelling reduction if necessary. Ice to left elbow as needed. Follow-up with orthopedics as an outpatient as needed. (2) Laceration of left index finger w/o foreign body w/o damage to nail: RICE Continue antibiotics per primary service. No restrictions. Follow-up with orthopedics as an outpatient as needed. Admission and Anticipated Discharge Date Admission Date: March 25, 2020 Subjective Patient seen this am. Sitting up in bed. Says he is doing better. Pain to left elbow and finger has improved. Feels redness to left elbow is improving. He is tolerated regular PO diet. He says he is waiting on hospitalist to discuss going home. Tolerating IV ABx. Denies f/c/s, N/V. Physical Exam Physical Exam: Left elbow motion is lacking -5 of extension and -10 of flexion. Breakaway bicep and tricep strength 5-/5. Elbow redness has improved per patient since yesterday. Slight warmth. Tender to elbow olecranon bursa and diffusely to surrounding tissue but per patient improving. Left finger laceration healed. Dry skin noted. No significant redness or swelling. Full motion of finger. NV intact L UE with palpable radial pulses. Motor to AIN, PIN, medial, radial, ulnar nerve intact. Sensation intact to light touch. Results & Data ([facility]) Vital Signs (Past 12 Hours) Vital Signs Temp Pulse Resp BP BP Pulse Ox 03/27/20 07:41 36.5 C 53 L 18 121/77 97 03/26/20 23:00 37.1 C 81 20 136/79 97 Laboratory Results 03/27/20 03/27/20 03/27/20 Range/Units 06:39 06:39 06:39 WBC 4.16 L (4.8-10.8) K/uL RBC 4.34 L (4.7-6.1) M/uL Hgb 13.7 L (14.0-18.0) g/dL Hct 38.9 L (42-52) % MCV 89.6 (80-100) fL MCH 31.6 (25-34) pg MCHC 35.2 (32-36) g/dL RDW Std Deviation 40.2 (36.4-46.3) fL RDW Coeff of Panfilo 12.4 (11.5-14.5) % Plt Count 215 (130-400) K/uL MPV 8.8 (7.4-10.4) fL Immature Gran % (Auto) 0.2 % Neut % (Auto) 54.8 % Lymph % (Auto) 32.9 % [place] % (Auto) 7.5 % Eos % (Auto) 4.1 % Baso % (Auto) 0.5 % Neut # (Auto) 2.28 (1.4-6.5) K/uL Lymph # (Auto) 1.37 (1.2-3.4) K/uL [place] # (Auto) 0.31 (0.11-0.59) K/uL Eos # (Auto) 0.17 (0-0.5) K/uL Baso # (Auto) 0.02 (0-0.2) K/uL Immature Gran # (Auto) 0.01 (0.00-0.02) K/uL ESR 32 H (0-14) mm/hr Sodium 141 (136-145) mmol/L Potassium 4.0 (3.5-5.1) mmol/L Chloride 111 H (98-107) mmol/L Carbon Dioxide 25 (21-32) mmol/L Anion Gap 5.0 (3-11) BUN 14 (7-18) mg/dl Creatinine 0.72 (0.6-1.4) mg/dl Est Cr Clr Drug Dosing 165.3 ml/min Est GFR ( Amer) 135.2 Est GFR (Non-Af Amer) 116.7 BUN/Creatinine Ratio 19.1 (10-20) Glucose 100 H (70-99) mg/dl Lactate (0.4-2.0) mmol/L Calcium 8.6 (8.5-10.1) mg/dl C-Reactive Protein 1.58 H (0-0.29) mg/dl Vancomycin Trough (See Comment) mcg/ml 03/26/20 03/26/20 Range/Units 19:53 11:48 WBC (4.8-10.8) K/uL RBC (4.7-6.1) M/uL Hgb (14.0-18.0) g/dL Hct (42-52) % MCV (80-100) fL MCH (25-34) pg MCHC (32-36) g/dL RDW Std Deviation (36.4-46.3) fL RDW Coeff of Panfilo (11.5-14.5) % Plt Count (130-400) K/uL MPV (7.4-10.4) fL Immature Gran % (Auto) % Neut % (Auto) % Lymph % (Auto) % [place] % (Auto) % Eos % (Auto) % Baso % (Auto) % Neut # (Auto) (1.4-6.5) K/uL Lymph # (Auto) (1.2-3.4) K/uL [place] # (Auto) (0.11-0.59) K/uL Eos # (Auto) (0-0.5) K/uL Baso # (Auto) (0-0.2) K/uL Immature Gran # (Auto) (0.00-0.02) K/uL ESR (0-14) mm/hr Sodium (136-145) mmol/L Potassium (3.5-5.1) mmol/L Chloride (98-107) mmol/L Carbon Dioxide (21-32) mmol/L Anion Gap (3-11) BUN (7-18) mg/dl Creatinine (0.6-1.4) mg/dl Est Cr Clr Drug Dosing ml/min Est GFR ( Amer) Est GFR (Non-Af Amer) BUN/Creatinine Ratio (10-20) Glucose (70-99) mg/dl Lactate 1.4 (0.4-2.0) mmol/L Calcium (8.5-10.1) mg/dl C-Reactive Protein (0-0.29) mg/dl Vancomycin Trough 12.1 (See Comment) mcg/ml Diagnostic Findings CT SCAN OF THE LEFT ELBOW WITH IV CONTRAST CLINICAL HISTORY: Olecranon bursitis. COMPARISON STUDY: Radiographs of the left elbow dated 03/23/2020. TECHNIQUE: Following the IV administration of 92 cc of Optiray 320, CT scan of the elbow is performed from the distal humerus to the proximal radius and ulna. Images are reviewed in the axial, sagittal, and coronal planes. IV contrast was administered without complication. A dose lowering technique was utilized adhering to the principles of ALARA. CT DOSE: 128.97 mGy.cm FINDINGS: The skeletal structures are well mineralized. No fracture is seen. There is no bony erosion or periostitis. The elbow joint is maintained. There is no joint effusion. No destructive bony lesion is identified. The regional musculature is normal in appearance. There is significant dorsal soft tissue edema. There is no organized/peripherally enhancing fluid collection identified to suggest abscess. The regional arteries are patent. IMPRESSION: 1. No bony abnormality is identified. 2. There is significant dorsal soft tissue edema, which likely represents olecranon bursitis and/or cellulitis. 3. No organized fluid collection is seen to suggest abscess. Clinical Laboratory Report Name: VIRGIL MATA Acct: [id number] Status: ADM INOo : 1980 [facility] [place] Date: 03/25/20 Age: 39 Sex: M Dis Date: Loc: [address] Rm/Bed: [facility] Spec: [id number] Collected: 03/25/20 Received: 03/25/20-[address]: Nupur Monzon PA-C Source: Finger,Left Index OV Order: Ordered: Surf Wnd Cul/Sm Procedure Result Verified Site Gram Stain Final 03/26/20 Gram Stain Result Rare WBCs Seen No Organisms Seen Surface Wound Culture Final 03/27/20 Organism 1 Staphylococcus aureus Quantity Few Sens Sensitivities to Follow S aureus RX M.I.C. --- --------- Clindamycin S <=0.5 Daptomycin S <=0.5 Erythromycin S <=0.5 Oxacillin S 0.5 Tetracycline S <=4 Trimeth/Sulfa S <=0.5/9.5 Vancomycin S 1 Clinical Laboratory Report Name: VIRGIL MATA Acct: [id number] Status: DEP CLI : 1980 [facility] [place] Date: 06/29/18 Age: 39 Sex: M Dis Date: Loc: Laboratory [facility] [place] Spec: [id number] Collected: 06/29/18 Received: 06/29/18-[address]: Kevin Perez,P.A. Copy To: Candelaria Flores CRNP Source: Elbow,Right OV Order: Ordered: Joint Fld Cu/Sm Procedure Result Verified Site Gram Stain Final 06/29/181438 Gram Stain Result Few WBCs Seen No Organisms Seen Joint Fluid/Space Culture Final 07/01/18-1108 No growth (1) Laceration of left index finger w/o foreign body w/o damage to nail Encounter type: sequela Qualified Code(s): S61.211S - Laceration without foreign body of left index finger without damage to nail, sequela
--- NOTE | 2020-03-27 10:43 | Discharge Summary ---
Date of Service March 27, 2020 Admission HPI Per Admitting Provider 39 YOM, with past medical history of Asthma, HTN, HLD, and originally cut his left finger on Mar 11 at work and had sutures placed, recently had those out on 24Mar2020. Today he presents to the emergency room after being seen on the Mar 22 for acute onset erythema, pain, to left elbow that is associated with fevers per patient. The patient was diagnosed with olecranon bursitis by his family provider. Came to the [facility] on Mar 22 to get his prescription filled, and was discharged on Keflex, Oxy, Ibuprofen, and Tylenol. On Mar 23, the patient returned back to the [facility] for complaints of swelling and pain to the left elbow. The area was marked with a skin marker, imaging was performed that showed no foreign body, he was given a dose of Rocephin IV and added on Doxycycline to his Keflex and discharged. The patient denies any trauma to the site, does lean on the elbow frequently at work. Denies any animal bites, or open areas to the elbow. Exam reveals no Nidus of entry. Lives at home and has cats as pets. No recent travel. Patient will be admitted for IV antibiotics and monitor for 24- 48 hours for clinical response. Admission Exam Per Admitting Provider PHYSICAL EXAM: General: awake, alert, no apparent distress Head: Normocephalic, atraumatic ENT: PERRL, EOMI, no pharyngeal exudate, mucous membranes moist Neuro: AAO x 3, speech clear and appropriate, strength intact bilaterally 5/5, sensation intact and equal all extremities Chest: equal rise and fall of the chest, no accessory muscle use, no heaves or thrills, Clear to auscultation, on room air, Cardiac: Regular rate and rhythm, telemetry reviewed, skin warm dry, cap refill <3 seconds, peripheral pulses +2 no JVD, no murmur. GI: NABS x 4 quadrants, soft, nontender to palpation, no rebound, guarding or tenderness : Spontaneously voiding, no pain, no CVA tenderness, Extremities: Normal inspection, no peripheral edema or erythema, calfs nont vish to palpation Psych: Normal mood and affect Skin/musculoskeletal: erythema to left elbow, tracks proximally and distally from joint, lymph nodes enlarged to lt axillae, tenderness to shoulder. Full ROM to wrist and shoulder. Principal Diagnosis Olecranon Bursitis, Cellulitis Discharge Exam Constitutional WD/WN, vitals as above + obese and comfortable; no acute distress Eyes + anicteric sclerae and PERRL ENMT Ears: no hearing impairment Neck normal visual inspection and trachea midline Respiratory normal respiratory effort, lungs clear to auscultation Cardiovascular RRR, no murmur, no edema Gastrointestinal (Abdomen) normal bowel sounds, soft, nontender, no hepatosplenomegaly Musculoskeletal improvement of ROM to L elbow almost back to baseline left elbow with decreased erythema, gas tender to palpation to surrounding area left finger laceration healed, no drainage noted/redness/swelling. NVI with palpable radial pulse. Skin warm, dry Neurologic patellar DTR's 2+ bilat, sensation intact and PERRL, EOMI, accommodation nl, no face palsy, no dysarthria Psychiatric Orientation: alert and oriented x 3 Lymphatic no cervical or axillary lymphadenopathy Discharge Data Allergies Allergy/AdvReac Type Severity Reaction Status Date / Time NSAIDS (Non-Steroidal AdvReac Intermediate Upset Verified 03/25/20 15:57 Anti-Inflamma stomach Consultations 03/25/20 16:14 ED Decision to Admit Stat 03/26/20 09:23 Consult Orthopedic Surgery Routine Ordered Studies 03/26/20 10:28 CT elbow LT w con Routine Hospital Course (1) Cellulitis of elbow: Failure of outpatient treatment with doxy/keflex (although of note, patient on doxy <48 hours) Placed on Clinda/Vanco Blood cultures NGTD CT elbow without fluid collection/abscess Ortho on consult -- KATI, follow-up outpatient if needed Culture from L finger lac with staph, no MRSA and likely contaminant Lactic wnl, procal negative, uric acid wnl at 6.6, lyme negative ESR and CRP trending down Discharged on Clinda/Keflex for 10 day course Pain control and sent with pain medication at discharge for breakthrough pain To follow up with PCP in next week to monitor progress (2) Finger laceration: stable no acute needs, drainage cultured by EMD Culture with staph aureus, marcus sensitive Abx as above for olecranon bursitis/cellulitis (3) GERD (gastroesophageal reflux disease): Continue omeprazole no acute needs --> protonix while inpatient (4) HTN (hypertension): BP stable, 136/79 Continued metoprolol with hold parameters (5) Asthma: Unable to find follow up or management of inhalers, however patient continues to smoke. Continued Albuterol and Flonase intranasal for chronic sinusitis. 97% on RA No wheezing/issues reported (6) DVT prophylaxis: SCDs and ambulation encouraged while inpatient Discharged home Total Time Total Time Spent Total Time Spent (In Minutes): 60 Discharge Plan Discharge Items Patient Disposition: Home - Self-Care Reason For Visit: ELBOW CELLULITIS Discharge Diagnosis: Olecranon Bursitis, Cellulitis Goals: You have been hospitalized for an acute medical problem. During your stay at [facility], we have made an effort to correct the problem that brought you to the hospital while keeping you as comfortable as possible. Medications were used to bring your condition under control and your discharge instructions will include directions for any medications you should take after leaving the hospital. Please make sure you see your Primary Care Provider as part of your follow up plan. Activity: Resume your previous activity Activity Comment: continue with range of motion exercises Non-emergency contact: Primary Care Provider and Surgeon Call non-emergency contact if: you have any medication questions, your symptoms worsen and your pain is not controlled Follow-up/Referrals: Tho Parson MD [Physician] - (Dr. Wright office will phone you to schedule a follow up appt.) Candelaria Flores CRNP [Primary Care Provider] - 04/03/20 9:50 am Diet: Heart Healthy Addtl Attending Provider Instructions: You have been hospitalized for a cellulitis/olecranon bursitis after failing outpatient treatment. Imaging did not show any evidence of drainable abscess/fluid collection. Orthopedics was consulted and recommends conservative treatment with elevation, ice, compression and pain control along with antibiotics. You can follow up with them in 1 week to monitor your progress as well as with your PCP to monitor improvement of infection. You are being sent with a short prescription of pain medication to use for breakthrough pain, but should utilize tylenol for all non-severe pain. Blood cultures have been negative to date after 48 hours. Culture from your finger laceration had staph, although this could be from local skin bacteria entering the break in skin. Discussion was had with pharmacy, and based on decreased length of treatment for various outpatient antibiotics, it has been determined that after the 2 days of IV antibiotics you received while inpatient, you are being sent with a prescription for the following: * Keflex -- take 500mg FOUR TIMES DAILY (previous prescription was for three times daily and may have contributed to slow response to therapy) * Clindamycin 300mg by mouth FOUR TIMES DAILY These will be continued for 10 days given your repeated trips to the ER and lack of response on outpatient basis. This may be extended if felt necessary by your PCP if they would like to extend to 14 days. Please monitor for any increase in diarrhea/>10 bowel movements per day as these antibiotics increase risk of developing infection called cdiff. Please call your PCP as soon as possible if this occurs as you will need additional oral antibiotic if that occurs. Please follow up with PCP and orthopedics as above. Please return to the emergency department with any increased swelling, redness, fever, or for any other symptoms that are concerning for you. Ithas been a pleasure being a part of the medical team providing for you while you have been in the hospital. Take care! Pending Studies at Discharge: Yes Studies:: blood cultures -- no growth to date Stand-Alone Forms: My [facility] [employer], Opioid Pain Management, Work/School Release (Inpt), Smoking Cessation Medications and DC Order Prescriptions: New acetaminophen 500 mg Tablet 500 mg PO Q6H PRN (Reason: fever or pain) Qty: 20 RF: 0 oxycodone 5 mg Tablet 5 mg PO Q4H PRN (Reason: pain) Qty: 10 RF: 0 clindamycin HCl 300 mg capsule 300 mg PO QID 10 Days Qty: 40 RF: 0 Continued fluoxetine 40 mg capsule 40 mg PO QAM RF: 0 metoprolol succinate 25 mg tablet extended release 24 hr 12.5 mg PO QAM RF: 0 zinc acetate 50 mg (zinc) Capsule 50 mg PO DAILY RF: 0 omega-3 fatty acids [Fish Oil Concentrate] 1,000 mg Capsule 1,000 mg PO QAM RF: 0 turmeric 400 mg Capsule 400 mg PO DAILY RF: 0 ascorbic acid (vitamin C) [Vitamin C] 500 mg Tablet,Chewable 1,500 mg PO QAM RF: 0 cholecalciferol (vitamin D3) [Vitamin D3] 25 mcg (1,000 unit) Capsule 1,000 mcg PO QAM RF: 0 fexofenadine 180 mg tablet 180 mg PO QAM RF: 0 gabapentin 400 mg Capsule 400 mg PO QID RF: 0 omeprazole 40 mg Capsule,Delayed Release(Dr/Ec) 40 mg PO QAM RF: 0 carisoprodol [Soma] 350 mg Tablet 350 mg PO QID RF: 0 fluticasone propionate [Flonase Allergy Relief] 50 mcg/actuation [place],Suspension 2 spray INTRANASAL BID RF: 0 lisinopril-hydrochlorothiazide 20-25 mg tablet 1 tab PO QAM RF: 0 albuterol sulfate 90 mcg/actuation HFA aerosol inhaler 2 puff inhalation Q6H PRN (Reason: Shortness Of Breath Or Wheezing) RF: 0 cephalexin 500 mg capsule 500 mg PO QID 10 Days Qty: 40 RF: 0 Discontinued doxycycline hyclate 100 mg capsule 100 mg PO Q12H 9 Days Qty: 18 RF: 0 oxycodone [Roxicodone] 5 mg tablet 5 mg PO Q6H PRN (Reason: Pain) RF: 0 Discharge Orders: Discharge Order (Routine); Ordered 03/27/20 Ordered By: Neda Rai Admission Data Admit Date/Time: 03/25/20 17:39 Attending Provider: Demetrius Christianson Admit Provider: Nic Menard Primary Care Provider: Candelaria Flores Other Providers: Tho Parson ; Demetrius Christianson Other Interventions: Discharge Summary Assessment (RN) Last Done: 03/27/20 11:45 Supervising Physician Co-Signing Physician Notes I supervised Neda Rai PA-C on this discharge. I interviewed and examined the patient independently of her. The plan is as written in the note except for any following changes/exceptions: None Doing well today. No fevers. Left elbow still with some pinking, but no pain and no effusion. Will continue abx as discussed with pharmacy. Coding Level of Care Code 50780 OBS Care - Discharge Diagnoses Cellulitis of elbow L03.119 Finger laceration S61.211A Damage to nail status: without damage Encounter type: initial encounter Finger: index finger Foreign body presence: without foreign body Laterality: left GERD (gastroesophageal reflux disease) K21.9 Esophagitis presence: esophagitis presence not specified HTN (hypertension) I10 Hypertension type: essential hypertension Asthma J45.909 Asthma complication type: unspecified Asthma persistence: unspecified Asthma severity: moderate DVT prophylaxis Z29.9
[2020-03-27] MEDS ORDERED: VANCOMYCIN TROUGH ONE (19:30)
== END 2020-03-27 12:30 | disposition home or self-care (01) ==
LOC: 2W 15:23 → ED 15:23 → SUATTDRO 17:39 → 2W 19:29